=== PATIENT | female | born 1980 ===

== ENCOUNTER 2021-01-31 10:12 | Outpatient (REF) | payer OTHER, SELFPAY | END 2021-01-31 10:13 | disposition home or self-care (01) | LOC: HO.HMGCLDS 10:12 | PROVIDERS: PCP Internal Medicine; Visit Provider Hospitalist | DX: B34.9 Viral infection, unspecified (principal); Z20.822 Contact with and (suspected) exposure to COVID-19 | CPT/HCPCS: U0003; U0005 ==

== ENCOUNTER 2021-02-09 10:41 | Outpatient (REF) | payer OTHER, SELFPAY ==
[2021-02-09 14:03] LABS: Hematocrit 42.4 % (37-47); Hemoglobin 13.6 g/dl (12.0-16.0); Mean Corpuscular HGB Conc 32.1 g/dl (31.0-35.0); Mean Corpuscular Hemoglobin 30.2 pg (27.0-33.0); Mean Corpuscular Volume 94.2 fL (80-98); Mean Platelet Volume 10.4 fL (9.4-12.3); Platelet Count 338 X10*3/uL (160-400); Red Cell Distribution Width 12.6 % (11.0-16.0); White Blood Count 7.3 X10*3/uL (4.8-10.8)
[2021-02-09 14:08] LABS: Glucose Urine UA NEG (NEG); Leukocyte Esterase Urine NEG (NEG); Nitrite Urine NEG (NEG); Urine Blood NEG (NEG); Urine Ketones NEG (NEG); Urine Protein NEG (NEG-TRACE)
[2021-02-09 14:14] LABS: Appearance Urine HAZY; Color Urine YELLOW
[2021-02-09 14:26] LABS: Bacteria Urine 2+ /LPF; RBC Urine 0 /HPF (0); Squamous Epithelial Cell Urine 4+ /LPF; WBC Urine 0 /HPF (0-4)
[2021-02-09 14:28] LABS: Alanine Aminotransferase 31 U/L (0-31); Albumin Level 4.4 g/dL (3.5-5.0); Alkaline Phosphatase 72 U/L (39-117); Anion Gap 13 (12-20); Aspartate Amino Transferase 20 U/L (5-31); Bilirubin Total 0.6 mg/dL (0.0-1.0); Blood Urea Nitrogen 14 mg/dL (9-16); Calcium 9.5 mg/dL (8.4-10.2); Carbon Dioxide 27 mmol/L (22-29); Chloride 103 mmol/L (96-108); Cholesterol 221 mg/dL; Estimated Glomerular Filt Rate > 60; Glucose Fasting 88 mg/dL (60-99); HDL Cholesterol 50 mg/dL; LDL Cholesterol Calculated 156 mg/dl; Potassium 4.7 mmol/L (3.3-5.1); Sodium 138 mmol/L (135-145); Total Protein 7.9 g/dL (6.5-8.0); Triglycerides 77 mg/dL
[2021-02-09 14:38] LABS: TSH reflex Free T4 0.31 uIU/mL (0.32-4.0)
[2021-02-09 15:45] LABS: Free T4 (Free Thyroxine) 0.84 ng/dL (0.71-1.85)
[2021-02-12 03:50] LABS: HBc Num1 0.04 S/CO (0.00-0.79); Hepatitis B Core Antibody Nonreactive (Nonreactive)
[2021-02-12 03:55] LABS: HBS Num1 73.06 mIU/mL (0-7.99); HBsAGNum1 0.46 S/CO (0.00-0.99); Hepatitis B Surface Antigen Negative (Negative); ~Hepatitis B Surface Antibody REACTIVE (Nonreactive)
== END 2021-02-09 10:42 | disposition home or self-care (01) ==
LOC: HO.HMGCLDS 10:41
PROVIDERS: PCP Internal Medicine; Visit Provider Internal Medicine
DX: Z00.00 Encounter for general adult medical examination without abnormal findings (principal)
CPT/HCPCS: 36415; 80053; 80061; 81001; 84439; 84443; 85027; 86704; 86706; 87340

== ENCOUNTER 2021-03-23 11:37 | Outpatient (REF) | payer OTHER, SELFPAY ==
[2021-03-26 15:17] LABS: TS Negative Control Passed; TS Panel A 2; TS Panel B 1; TS Positive Control Passed; TSpotTB Negative (SeeBelow)
== END 2021-03-23 11:38 | disposition home or self-care (01) ==
LOC: HO.HMGCLDS 11:37
PROVIDERS: PCP Internal Medicine; Visit Provider Internal Medicine
DX: Z11.1 Encounter for screening for respiratory tuberculosis (principal)
CPT/HCPCS: 36415; 86481

== ENCOUNTER 2021-04-03 12:27 | Outpatient (REF) | payer OTHER, SELFPAY ==
[2021-04-03 14:46] LABS: Influenza A PCR NEGATIVE (Negative); Influenza B PCR NEGATIVE (Negative); Resp Syncy Virus RNA Qual PCR NEGATIVE (Negative); SARS COV2 PCR INHOUSE NEGATIVE (Negative)
== END 2021-04-03 12:28 | disposition home or self-care (01) ==
LOC: HO.LAB 12:27
PROVIDERS: Visit Provider Nurse Practitioner Family
DX: B34.9 Viral infection, unspecified (principal); Z20.822 Contact with and (suspected) exposure to COVID-19
CPT/HCPCS: 0241U; 36415

== ENCOUNTER 2021-04-20 13:12 | Outpatient (REF) | payer OTHER, SELFPAY ==
--- NOTE | ~2021-04-20 | US_ITS ---
EXAMINATION: US THYROID CLINICAL INFORMATION: Toxic goiter, unspecified. COMPARISON: None TECHNIQUE: Linear transducer grayscale and color Doppler examination with attention to the region of the thyroid. FINDINGS: SIZE: Measurements of the thyroid lobes and nodules are given in sagittal, anteroposterior and transverse dimensions respectively. Right Thyroid Lobe: 5.1 x 1.8 x 1.9 cm, volume 9.1 mL. Parenchyma: The gland echotexture is homogeneous. Thyroid vascularity is normal. Left Thyroid Lobe: 4.7 x 1.1 x 2.1 cm, volume 5.7 mL. Parenchyma: The gland echotexture is homogeneous. Thyroid vascularity is normal. Isthmus: 3 cm in maximum AP dimension. Estimated total number of nodules greater than or equal to 1 cm: 1. 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 Location: Left inferior. Size: 0.8 x 0.4 x 0.7 cm, volume 0.15 mL. Nodule characteristics: Composition: Cystic(0). ACR TI-RADS total points: 0 ACR TI-RADS category: 1 2. Location: Left inferior. Size: 0.5 x 0.3 x 0.4 cm, volume 0.03 mL. Nodule characteristics: Composition: Mixed cystic and solid (1). Echogenicity: Cannot be determined (1). Shape: Not taller than wide (0). Margins: Smooth (0). Echogenic Foci: None (0). ACR TI-RADS total points: 2 ACR TI-RADS category: 2 3. Location: Left inferior. Size: 0.4 x 0.2 x 0.3 cm, volume 0.01 mL. Nodule characteristics: Composition: Cystic(0). ACR TI-RADS total points: 0 ACR TI-RADS category: 1 4. Location: Right inferior. Size: 2.5 x 1.5 x 1.6 cm, volume 4.02 mL. Nodule characteristics: Composition: Mixed cystic and solid (1). Echogenicity: Very hypoechoic (3). Shape: Taller than wide (3). Margins: Smooth (0). Echogenic Foci: Peripheral calcifications (2). ACR TI-RADS total points: 9 ACR TI-RADS category: 5 NODES: No lymphadenopathy is seen in the tissue surrounding the thyroid gland. US/US thyroid IMPRESSION: Bilateral thyroid nodules. Fine needle aspiration of the dominant nodule in the right lobe recommended. ACR TI-RADS RECOMMENDATION REFERENCE: Ultrasound-guided fine-needle aspiration, followup ultrasound, no further follow up. * TR1 (0 point) and TR 2 (2 points): No FNA or follow up * TR3 (3 points): FNA if more than or equal to 2.5 cm in maximum dimension, followup ultrasound in 1, 3 and 5 years if 1.5 to 2.4 cm in maximum dimension. * TR4 (4-6 points): FNA if more than or equal to 1.5 cm in maximum dimension, followup ultrasound in 1, 2, 3 and 5 years if 1 to 1.4 cm in maximum dimension. * TR5 (more than or equal to 7 points): FNA if more than or equal to 1 cm in maximum dimension, followup ultrasound every year for 5 years if 0.5 to 0.9 cm in maximum dimension. * TR3, TR4 or TR5 nodules that are below the size threshold for follow up receive no follow up.
== END 2021-04-20 13:13 | disposition home or self-care (01) ==
LOC: HO.HMGCX 13:12
PROVIDERS: PCP Internal Medicine; Visit Provider Internal Medicine
DX: E04.9 Nontoxic goiter, unspecified (principal)
CPT/HCPCS: 76536

== ENCOUNTER → 2021-10-29 10:41 | Outpatient (BNVA) | payer OTHER, SELFPAY | PROVIDERS: PCP Internal Medicine; Visit Provider Internal Medicine ==

== ENCOUNTER 2021-10-30 06:26 | Outpatient (REF) | payer SELFPAY ==
[2021-10-30 12:33] LABS: Free T4 (Free Thyroxine) 0.78 ng/dL (0.71-1.85); Thyroid Stimulating Hormone 0.96 uIU/mL (0.32-4.0)
[2021-10-31 04:12] LABS: Triiodothyronine T3 Total 76 ng/dL (76-181)
== END 2021-10-30 06:27 | disposition home or self-care (01) ==
LOC: HO.HMGCLDS 06:26
PROVIDERS: PCP Internal Medicine; Visit Provider Internal Medicine
DX: E04.2 Nontoxic multinodular goiter (principal)
CPT/HCPCS: 36415; 84439; 84443; 84480

== ENCOUNTER 2021-12-13 13:24 | Outpatient (REF) | payer SELFPAY ==
[2021-12-13 17:08] LABS: Free T4 (Free Thyroxine) 0.77 ng/dL (0.71-1.85); Thyroid Stimulating Hormone 0.58 uIU/mL (0.32-4.0)
[2021-12-14 08:35] LABS: Triiodothyronine T3 Total 88 ng/dL (76-181)
== END 2021-12-13 13:25 | disposition home or self-care (01) ==
LOC: HO.HMGCLDS 13:24
PROVIDERS: Visit Provider Internal Medicine
DX: E05.90 Thyrotoxicosis, unspecified without thyrotoxic crisis or storm (principal)
CPT/HCPCS: 36415; 84439; 84443; 84480

== ENCOUNTER 2022-05-09 08:10 | Outpatient (REF) | payer OTHER, SELFPAY ==
--- NOTE | 2022-05-09 08:46 | P.BOP_ITS ---
Brief Operative Note Date of Service: 05/09/22 Pre-op diagnosis: Multinodular Thyroid Procedure: Patient presented for FNA biopsy of the thyroid. What was read as a 2.5 cm solitary nodule in the RMP was found to represent 2 separate 1.2 cm thyroid nodules within the RMP. One pass with a 27 guage needle was made, but subsequently it was noted that the Patient's R carotid appeared to contain either an atherematous plaque vs surrounding edema. Biopsy was aborted and an official cortid US was scheduled. FNA biopsy will be completed after US of the carotid is completed. Surgeon: Mirela Saucedo, DO Was an Associate Sales Representative used for this Procedure?: No Estimated blood loss (mL): 0
== END 2022-05-09 08:11 | disposition home or self-care (01) ==
LOC: HO.US 08:10
PROVIDERS: PCP Internal Medicine; Visit Provider Internal Medicine
DX: E04.2 Nontoxic multinodular goiter (principal)
CPT/HCPCS: 10005; 88172; 88173

== ENCOUNTER 2022-05-10 09:59 | Outpatient (REF) | payer OTHER, SELFPAY ==
--- NOTE | ~2022-05-10 | US_ITS ---
EXAMINATION: US EXTRACRANIAL CAROTID DUPLEX, BILATERAL CLINICAL INFORMATION: No indication available at time of dictation. COMPARISON: None TECHNIQUE: Real-time ultrasound and Doppler techniques (integrating B-mode 2-D vascular images, Doppler spectral analysis and color-flow Doppler imaging) were utilized to interrogate the extracranial carotid arteries, the vertebral arteries and proximal subclavian arteries bilaterally. The degree of stenosis is determined by criteria similar to NASCET. FINDINGS: Right Side: 1. There is no atherosclerotic plaque seen in the bifurcation/proximal ICA region. 2. The common carotid artery PSV proximally is 96 cm/s and distally 83 cm/s. 3. The proximal internal carotid artery velocities are 76 cm/s systolic and 23 cm/s diastolic. 4. The proximal external carotid artery PSV is 84 cm/s. 5. The vertebral artery shows antegrade flow. 6. The subclavian artery waveforms are normal. Left Side: 1. There is no atherosclerotic plaque seen in the bifurcation/proximal ICA region. 2. The common carotid artery PSV proximally is 112 cm/s and distally 98 cm/s. 3. The proximal internal carotid artery velocities are 75 cm/s systolic and 33 cm/s diastolic. 4. The proximal external carotid artery PSV is 65 cm/s. 5. The vertebral artery shows antegrade flow. 6. The subclavian artery waveforms are normal. US/US carotid duplex BI IMPRESSION: 1. RIGHT: Normal right internal carotid artery without atherosclerotic plaque or hemodynamically significant stenosis. 2. LEFT: Normal left internal carotid artery without atherosclerotic plaque or hemodynamically significant stenosis.
== END 2022-05-10 10:00 | disposition home or self-care (01) ==
LOC: HO.US 09:59
PROVIDERS: Visit Provider Internal Medicine
DX: E04.2 Nontoxic multinodular goiter (principal)
CPT/HCPCS: 93880

== ENCOUNTER 2022-06-21 12:41 | Outpatient (REF) | payer OTHER, SELFPAY ==
--- NOTE | ~2022-06-21 | US_ITS ---
EXAMINATION: ULTRASOUND-GUIDED FINE-NEEDLE ASPIRATION CLINICAL INFORMATION: Thyroid nodule COMPARISON: Previous fine-needle aspiration April 2022 thyroid ultrasound March 2021 TECHNIQUE: Procedure and risks and benefits including bleeding and infection were discussed with the patient and informed consent was obtained. The right neck was prepped and draped in usual sterile fashion. The skin and soft tissues were anesthetized with lidocaine plain. Using ultrasound guidance and a 25-gauge needle, access to the nodule in the mid right lobe was obtained. 4 25-gauge FNA specimens were obtained. There is no complication. FINDINGS: There is a 1.4 x 1.2 x 1.2 cm nodule in the mid right thyroid gland that was targeted for fine-needle aspiration. US/US guided fine needle asp IMPRESSION: Right thyroid nodule fine-needle aspiration.
[2022-06-21] MEDS: Lidocaine HCl 1 % MPF 5 ML VIAL 2 ML SUBCUT (14:02)
== END 2022-06-21 12:42 | disposition home or self-care (01) ==
LOC: HO.US 12:41
PROVIDERS: Visit Provider Internal Medicine
DX: E04.2 Nontoxic multinodular goiter (principal)
CPT/HCPCS: 10005; 88172; 88173; 88177

== ENCOUNTER 2022-07-26 09:59 | Outpatient (REF) | payer OTHER, SELFPAY ==
[2022-07-26 12:54] LABS: Thyroid Stimulating Hormone 0.34 uIU/mL (0.32-4.0)
[2022-07-29 04:17] LABS: Triiodothyronine T3 Total 95 ng/dL (76-181)
[2022-07-29 14:32] LABS: TS Negative Control Passed; TS Panel A 2; TS Panel B 1; TS Positive Control Passed; TSpotTB Negative (Negative)
== END 2022-07-26 10:00 | disposition home or self-care (01) ==
LOC: HO.HMGCLDS 09:59
PROVIDERS: Absent Provider Internal Medicine; PCP Internal Medicine; Visit Provider Internal Medicine
DX: Z11.1 Encounter for screening for respiratory tuberculosis (principal); E04.2 Nontoxic multinodular goiter; E05.90 Thyrotoxicosis, unspecified without thyrotoxic crisis or storm
CPT/HCPCS: 36415; 84439; 84443; 84480; 86481

== ENCOUNTER 2022-08-23 09:09 | Outpatient (REF) | payer OTHER, SELFPAY ==
[2022-08-23 12:09] LABS: HBS Num1 70.65 mIU/mL (0-7.99); ~Hepatitis B Surface Antibody REACTIVE (Nonreactive)
[2022-08-23 12:14] LABS: Free T4 (Free Thyroxine) 0.92 ng/dL (0.71-1.85); Thyroid Stimulating Hormone 0.49 uIU/mL (0.32-4.0)
[2022-08-25 08:12] LABS: Triiodothyronine T3 Total 108 ng/dL (76-181)
[2022-08-26 21:57] LABS: Rubella IgG Antibody 6.85 Index
== END 2022-08-23 09:10 | disposition home or self-care (01) ==
LOC: HO.HMGCLDS 09:09
PROVIDERS: Absent Provider Internal Medicine; PCP Internal Medicine; Visit Provider Internal Medicine
DX: Z02.0 Encounter for examination for admission to educational institution (principal); E04.2 Nontoxic multinodular goiter; E05.90 Thyrotoxicosis, unspecified without thyrotoxic crisis or storm
CPT/HCPCS: 36415; 84439; 84443; 84480; 86706; 86735; 86762; 86765

== ENCOUNTER 2022-11-08 09:08 | Outpatient (REF) | payer OTHER, SELFPAY ==
[2022-11-08 11:38] LABS: MANUAL DIFF FLAG NO
[2022-11-08 11:57] LABS: Basophils Absolute Auto 0.1 X10*3/uL (0.0-0.2); Eosinophils Absolute Auto 0.2 X10*3/uL (0.0-0.4); Eosinophils Percent Auto 3.9 % (0-4); Hematocrit 41.9 % (37.0-47.0); Hemoglobin 13.3 g/dl (12.0-16.0); Imm Gran Abs Auto 0.01 X10*3/uL (0.00-0.03); Imm Gran Pct Auto 0.2 % (0.0-0.4); Lymphocytes Absolute Auto 1.7 X10*3/uL (1.2-4.9); Lymphocytes Percent Auto 27.1 % (20-40); Mean Corpuscular HGB Conc 31.7 g/dl (31.0-35.0); Mean Corpuscular Hemoglobin 29.8 pg (27.0-33.0); Mean Corpuscular Volume 93.9 fL (80.0-98.0); Mean Platelet Volume 10.1 fL (9.4-12.3); Monocytes Absolute Auto 0.4 X10*3/uL (0.1-1.2); Neutrophils Absolute Auto 3.7 x10*3/uL (2.0-8.3); Neutrophils Percent Auto 60.8 % (45-73); Platelet Count 393 X10*3/uL (160-400); Red Blood Count 4.46 X10*6/uL (4.20-5.50); Red Cell Distribution Width 12.3 % (11.0-16.0); White Blood Count 6.1 X10*3/uL (4.8-10.8)
[2022-11-08 12:10] LABS: Alanine Aminotransferase 16 U/L (0-31); Albumin Level 4.1 g/dL (3.5-5.0); Alkaline Phosphatase 65 U/L (39-117); Anion Gap 9 (12-20); Aspartate Amino Transferase 19 U/L (5-31); Bilirubin Total 0.3 mg/dL (0.0-1.0); Blood Urea Nitrogen 17 mg/dL (9-16); Carbon Dioxide 28 mmol/L (22-29); Chloride 106 mmol/L (96-108); Cholesterol 216 mg/dL; Estimated Glomerular Filt Rate > 60; Glucose Fasting 89 mg/dL (60-99); HDL Cholesterol 48 mg/dL; LDL Cholesterol Calculated 147 mg/dl; Potassium 4.2 mmol/L (3.3-5.1); Sodium 139 mmol/L (135-145); Total Protein 7.4 g/dL (6.5-8.0); Triglycerides 109 mg/dL
== END 2022-11-08 09:09 | disposition home or self-care (01) ==
LOC: HO.HMGCLDS 09:08
PROVIDERS: PCP Internal Medicine; Visit Provider Internal Medicine
DX: Z00.00 Encounter for general adult medical examination without abnormal findings (principal); R42 Dizziness and giddiness
CPT/HCPCS: 36415; 80053; 80061; 85025

== ENCOUNTER 2022-12-18 10:06 | Outpatient (REF) | payer OTHER, SELFPAY ==
[2022-12-18 11:54] LABS: C Reactive Protein < 0.10 mg/dL (< or = 0.50)
[2022-12-18 12:02] LABS: Erythrocyte Sedimentation Rate 12 MM/HR (0-20)
== END 2022-12-18 10:07 | disposition home or self-care (01) ==
LOC: HO.HMGCLDS 10:06
PROVIDERS: PCP Internal Medicine; Visit Provider Internal Medicine
DX: M79.10 Myalgia, unspecified site (principal); R21 Rash and other nonspecific skin eruption
CPT/HCPCS: 36415; 82550; 85652; 86140

== ENCOUNTER 2023-04-24 12:07 | Outpatient (REF) | payer OTHER, SELFPAY | END 2023-04-24 12:08 | disposition home or self-care (01) | LOC: HO.US 12:07 | PROVIDERS: PCP Internal Medicine; Visit Provider Internal Medicine | DX: E04.2 Nontoxic multinodular goiter (principal) | CPT/HCPCS: 76536 ==

== ENCOUNTER 2023-05-06 13:58 | Outpatient (AMB) | payer OTHER, SELFPAY ==
--- NOTE | 2023-05-06 14:09 | MHC.PC.OV ---
Vital Signs 05/06/23 14:21 Height 5 ft 4 in Weight 176 lb BMI 30.2 BP 120/80 Blood Pressure Location Lt brachial Position Sitting Pulse 78 Pulse Source Pulse Oximeter Pulse Oximetry (%) 98 Oxygen Delivery Method Room Air Intake Visit Reasons: ER follow up Intake Note: Pt is here today for ER follow up visit. Allergies No Known Allergies Allergy (Verified 05/06/23 14:23) Medication List - Last Reconciled 05/06/23 by Natasha Jim MD clobetasol 0.05% 1 appl topical BEDTIME hydrocortisone 2.5% 1 appl topical BID meclizine 25 mg PO BID PRN Tobacco use date assessed: 05/06/23 Dental Screening Dental Screen Date: 05/06/23 Did you have a dental visit in the last 12 months?: Yes Did you have a dental problem in the last 6 months where you did not have access to dental care?: No Was dental information given to patient?: Patient has dentist HPI ER follow up HPI Details Pt presents for f/u ER visit for chronic but worsening recently neck pain radiating to R shoulder. Pt had negative XR C spine and XR shoulder. Pt tried PT without relief. Pt took Prednisone 40 mg for 4 days. Pt c/o burning sensation all over her body including her face, mid back, feet and hands. This symptoms on and off and patient feels they are related to COVID infection. Patient reports muscle cramps on and off. She tried muscle relaxant without relief. Patient denies extremity weakness or change in the balance or vision, fever chills. [facility] Medical History Annual physical exam Eczema Enlarged thyroid Foot pain, right Gestational diabetes mellitus Gestational HTN Hyperlipidemia Hyperthyroidism Multinodular thyroid Normal Pap smear Surgical History No history of previous surgery Family History Father Diabetes HTN (hypertension) Mother Ectopic Social History Housing: House Alcohol intake: current Alcohol intake frequency: does not drink Patient Tobacco Use Status: Never used Tobacco e-Cigarette/Vaping Use: Never Used Current occupational status: employed Cognitive needs: No Hearing needs: No Vision needs: No Questionnaire Thrive Questionnaire Date Thrive assessed: 11/06/22 AUDIT C Alcohol Use Questionnaire (AUDIT-C) 1. How often do you have a drink containing alcohol?: Monthly or less 2. How many drinks containing alcohol do you have on a typical day when you are drinking?: 1 or 2 3. How often do you have six or more drinks on one occasion?: Never Total Score: 1 ELDA-7 AMB Questionnaire ELDA-7 Date ELDA - 7 assessed: 11/06/22 Source: Developed by Drs. Kj Hoang, Geraldine Kwan, Rai Chowdhury and colleagues, with an educational venkat from [employer]. Review of Systems Const All systems reviewed & are unremarkable except as noted in HPI and below Reports no additional complaints Eyes Reports no additional complaints ENT Reports no additional complaints Card Reports no additional complaints Resp Reports no additional complaints GI Reports no additional complaints Reports no additional complaints Physical exam (Primary Care) Vital Signs: Last Vital Signs Pulse 78 05/06/23 14:21 BP 120/80 05/06/23 14:21 Pulse Ox 98 05/06/23 14:21 Oxygen Delivery Method Room Air 05/06/23 14:21 BMI result Body Mass Index 30.2 Tobacco/Smoking Status: Tobacco use Status Tobacco use date assessed 05/06/23 05/06/23 14:27 Patient Tobacco Use Status Never used Tobacco 05/06/23 14:09 e-Cigarette/Vaping Use Never Used 05/06/23 14:09 Thrive Assessment: Date of Thrive Assessment Date Thrive assessed 11/06/22 05/06/23 14:09 Const General: no acute distress [facility] Head: Yes normal to inspection Ears: hearing grossly normal bilaterally General nose exam: Normal external nose present Face and sinus: Yes normal facial exam Mouth: Normal oral and palatal mucosa present Throat: Yes posterior oropharynx normal Eyes General: appearance normal, both eyes and all related structures Neck Neck: Yes no lymphadenopathy and Yes supple Resp Effort & Inspection: normal respiratory effort Auscultation: clear to auscultation bilaterally Cardio Rhythm: regular rhythm Heart sounds: S1 normal heart sound present and S2 normal heart sound present GI Inspection: Yes normal to inspection Palpation (GI): Soft to palpation Percussion: Yes normal to percussion Auscultation: normal bowel sounds Back/Spine/Pelvis Other: Paraspinal tenderness and muscle tension in lower cervical region, both shoulders with full range of motion, deep tendon reflexes 1+ bilaterally, motor strength 5/5 upper and lower extremities Thoracic/Lumbar Spine: thoracic and lumbar spine normal to inspection Neuro Cranial nerves: Yes CN's II-XII intact bilaterally Cognition (Neuro): normal cognition Gait exam (Neuro): Normal gait present Motor exam (neuro): 5/5 motor strength present throughout Coordination: [id number] test normal Extrem General: Yes no clubbing, cyanosis or edema Assessment and Plan Assessment & Plan (1) Cervical radicular pain: Code(s): M54.12 - Radiculopathy, cervical region Plan: For persistent cervical radiculopathy without improvement with physical therapy C-spine MRI will be obtained to evaluate (2) Myalgia: Code(s): M79.10 - Myalgia, unspecified site Plan: Check blood work (3) Neuropathy: Code(s): G62.9 - Polyneuropathy, unspecified Plan: Obtain labs including vitamin B12 level and CRP. Start gabapentin 300 mg q.h.s. then increase to twice a day as needed. Patient will be referred to Neurology Orders: Orders Comprehensive Met. Panel Today G62.9 - Polyneuropathy, unspecified, M54.12 - Radiculopathy, cervical region, M79.10 - Myalgia, unspecified site Magnesium Today G62.9 - Polyneuropathy, unspecified, M54.12 - Radiculopathy, cervical region, M79.10 - Myalgia, unspecified site TSH reflex Free T4 Today G62.9 - Polyneuropathy, unspecified, M54.12 - Radiculopathy, cervical region, M79.10 - Myalgia, unspecified site Complete Blood Count Auto Diff Today G62.9 - Polyneuropathy, unspecified, M54.12 - Radiculopathy, cervical region, M79.10 - Myalgia, unspecified site ANDERS Reflex Titer and Pattern Today G62.9 - Polyneuropathy, unspecified, M54.12 - Radiculopathy, cervical region, M79.10 - Myalgia, unspecified site MR cervical spine wo con Today G62.9 - Polyneuropathy, unspecified, M54.12 - Radiculopathy, cervical region, M79.10 - Myalgia, unspecified site Vitamin B12 and Folate Today G62.9 - Polyneuropathy, unspecified Referrals Neurology Referral G62.9 - Polyneuropathy, unspecified Medications: New gabapentin 300 mg PO BID 60 caps 1RF Coding Level of Care Code Est Pt Level 4 (59737) Diagnoses Cervical radicular pain M54.12 Myalgia M79.10 Neuropathy G62.9
[2023-05-06 14:21] VITALS: BP 120/80; PULSE 78; O2SAT 98; BMI 30.2
== END 2023-05-06 15:16 | disposition home or self-care (01) ==
PROVIDERS: PCP Internal Medicine; Visit Provider Internal Medicine
DX: M54.12 Radiculopathy, cervical region (principal); M79.10 Myalgia, unspecified site; G62.9 Polyneuropathy, unspecified
CPT/HCPCS: 99214

== ENCOUNTER 2023-05-06 15:03 | Outpatient (REF) | payer OTHER, SELFPAY ==
[2023-05-06 16:15] LABS: MANUAL DIFF FLAG NO
[2023-05-06 16:27] LABS: Basophils Absolute Auto 0.1 X10*3/uL (0.0-0.2); Basophils Percent Auto 0.6 % (0-2); Eosinophils Absolute Auto 0.3 X10*3/uL (0.0-0.4); Eosinophils Percent Auto 3.2 % (0-4); Hematocrit 39.1 % (37.0-47.0); Hemoglobin 12.7 g/dl (12.0-16.0); Imm Gran Abs Auto 0.03 X10*3/uL (0.00-0.03); Imm Gran Pct Auto 0.3 % (0.0-0.4); Lymphocytes Absolute Auto 2.3 X10*3/uL (1.2-4.9); Lymphocytes Percent Auto 22.7 % (20-40); Mean Corpuscular HGB Conc 32.5 g/dl (31.0-35.0); Mean Corpuscular Hemoglobin 30.1 pg (27.0-33.0); Mean Corpuscular Volume 92.7 fL (80.0-98.0); Monocytes Absolute Auto 0.9 X10*3/uL (0.1-1.2); Monocytes Percent Auto 9.2 % (2-11); Neutrophils Absolute Auto 6.4 x10*3/uL (2.0-8.3); Platelet Count 347 X10*3/uL (160-400); Red Blood Count 4.22 X10*6/uL (4.20-5.50); Red Cell Distribution Width 12.8 % (11.0-16.0); White Blood Count 9.9 X10*3/uL (4.8-10.8)
[2023-05-06 18:00] LABS: Alanine Aminotransferase 21 U/L (0-31); Albumin Level 4.2 g/dL (3.5-5.0); Alkaline Phosphatase 62 U/L (39-117); Anion Gap 13 (12-20); Aspartate Amino Transferase 15 U/L (5-31); Bilirubin Total 0.4 mg/dL (0.0-1.0); Blood Urea Nitrogen 12 mg/dL (9-16); Calcium 9.9 mg/dL (8.4-10.2); Carbon Dioxide 24 mmol/L (22-29); Chloride 105 mmol/L (96-108); Estimated Glomerular Filt Rate > 60; Glucose Random 74 mg/dL (60-115); Potassium 3.6 mmol/L (3.3-5.1); Sodium 138 mmol/L (135-145); Total Protein 7.6 g/dL (6.5-8.0)
[2023-05-11 14:32] LABS: Anti Nuclear Antibody Screen NEGATIVE (NEGATIVE)
== END 2023-05-06 15:04 | disposition home or self-care (01) ==
LOC: HO.HMGCLDS 15:03
PROVIDERS: PCP Internal Medicine; Visit Provider Internal Medicine
DX: M54.12 Radiculopathy, cervical region (principal); M79.10 Myalgia, unspecified site; G62.9 Polyneuropathy, unspecified
CPT/HCPCS: 36415; 80053; 83735; 84443; 85025; 86038

== ENCOUNTER 2023-06-25 12:46 | Outpatient (REF) | payer OTHER, SELFPAY ==
[2023-06-25 18:23] LABS: Folate 15.5 ng/mL (> or = 4.0); Vitamin B12 838 pg/mL (200-900)
[2023-06-27 23:09] LABS: TS Negative Control Passed; TS Panel A 0; TS Panel B 2; TS Positive Control Passed; TSpotTB Negative (Negative)
== END 2023-06-25 12:47 | disposition home or self-care (01) ==
LOC: HO.HMGCLDS 12:46
PROVIDERS: PCP Internal Medicine; Visit Provider Internal Medicine
DX: G62.9 Polyneuropathy, unspecified (principal); Z11.1 Encounter for screening for respiratory tuberculosis
CPT/HCPCS: 36415; 82607; 82746; 86481

== ENCOUNTER 2023-09-04 09:27 | Outpatient (REF) | payer OTHER, SELFPAY ==
--- NOTE | ~2023-09-04 | MR_ITS ---
EXAMINATION: MR CERVICAL SPINE WITHOUT CONTRAST CLINICAL INFORMATION: Radiculopathy, cervical region. COMPARISON: None available. TECHNIQUE: MRI of the cervical spine was obtained using routine sequences without contrast. FINDINGS: The visualized posterior fossa is unremarkable. Slight reversal of the normal cervical lordosis. Trace retrolisthesis at C4-5, C5-C6, and C6-7. No abnormal bone marrow signal. The vertebral body heights are preserved. Multilevel disc desiccation without significant disc height loss. The spinal cord is normal in caliber. No abnormal cord signal. C2-3: Disc osteophyte complex and right greater than left facet arthrosis. No significant spinal canal or neural foraminal narrowing. C3-4: Disc osteophyte complex partially effacing the ventral thecal sac. No significant spinal canal or neural foraminal narrowing. C4-5: No significant spinal canal or neural foraminal narrowing. C5-6: Right paracentral disc osteophyte complex and bilateral uncovertebral hypertrophy. Mild to moderate right eccentric spinal canal stenosis with mass effect on the cord. Mild bilateral neural foraminal narrowing. C6-7: Disc osteophyte complex. No significant spinal canal or neural foraminal narrowing. C7-T1: No significant spinal canal or neural foraminal narrowing. The paravertebral soft tissues are unremarkable. Partially imaged T2 hyperintense nodules in bilateral thyroid lobes. The visualized lung apices are clear. MR/MR cervical spine wo con IMPRESSION: -Multilevel cervical spondylosis as described above, worst at C5-C6 where there is mild to moderate right eccentric spinal canal stenosis and mild bilateral neural foraminal narrowing. -Partially imaged bilateral thyroid lobe nodules, better evaluated with dedicated thyroid ultrasound.
== END 2023-09-04 09:28 | disposition home or self-care (01) ==
LOC: HO.MRI 09:27
PROVIDERS: PCP Internal Medicine; Visit Provider Internal Medicine
DX: M54.12 Radiculopathy, cervical region (principal); M79.10 Myalgia, unspecified site; G62.9 Polyneuropathy, unspecified
CPT/HCPCS: 72141

== ENCOUNTER 2023-11-18 12:43 | Outpatient (AMB) | payer OTHER, SELFPAY ==
[2023-11-18 13:04] VITALS: BP 120/74; PULSE 89; O2SAT 99; BMI 29.9
--- NOTE | 2023-11-18 13:04 | A.OFFPC_ITS ---
Vital Signs 11/18/23 13:04 Height 5 ft 4 in Weight 174 lb BMI 29.9 BP 120/74 Blood Pressure Location Lt brachial Position Sitting Pulse 89 Pulse Source Pulse Oximeter Pulse Oximetry (%) 99 Oxygen Delivery Method Room Air Intake Visit Reasons: Annual PE Intake Note: Pt is here today for PE. 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 Allergies No Known Allergies Allergy (Verified 11/18/23 13:05) Medication List - Last Reconciled 11/18/23 by Natasha Jim MD clobetasol 0.05% 1 appl topical BEDTIME gabapentin 300 mg PO BID meclizine 25 mg PO BID PRN sertraline 50 mg PO DAILY Tobacco use date assessed: 11/18/23 Dental Screening Dental Screen Date: 11/18/23 Did you have a dental visit in the last 12 months?: Yes Did you have a dental problem in the last 6 months where you did not have access to dental care?: No Was dental information given to patient?: Patient has dentist HPI Annual PE HPI Details Pt presents for PE. 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 Patient complains of insomnia but denies depression or suicidal ideation [facility] Medical History Multinodular thyroid Hyperthyroidism Enlarged thyroid Foot pain, right Normal Pap smear Gestational diabetes mellitus Eczema Hyperlipidemia Gestational HTN Annual physical exam Surgical History No history of previous surgery Family History Father Diabetes HTN (hypertension) Mother Ectopic Social History Housing: House Alcohol intake: current Alcohol intake frequency: does not drink Patient Tobacco Use Status: Never used Tobacco e-Cigarette/Vaping Use: Never Used Current occupational status: employed Cognitive needs: No Hearing needs: No Vision needs: No Questionnaire PHQ-9 Over the last 2 weeks, how often have you been bothered by any of the following problems? 1. Little interest or pleasure in doing things: not at all 2. Feeling down, depressed, or hopeless: not at all 3. Trouble falling or staying asleep, or sleeping too much: not at all 4. Feeling tired or having little energy: not at all 5. Poor appetite or overeating: not at all 6. Feeling bad about yourself - or that you are a failure or have let yourself or your family down: not at all 7. Trouble concentrating on things, such as reading the newspaper or watching television: not at all 8. Moving or speaking so slowly that other people could have noticed. Or the opposite - being so fidgety or restless that you have been moving around a lot more than usual: not at all 9. Thoughts that you would be better off or of hurting yourself in some way: not at all Total score: 0 Depression Screening Interpretation: Negative Depression Screening Done: Yes Source: Developed by Drs. Kj Hoang, Geraldine Kwan, Rai Chowdhury and colleagues, with an educational venkat from [employer]. Thrive Questionnaire Date Thrive assessed: 11/18/23 I am a: Patient What is your living situation today?: I have a steady place to live Within the past 12 months, did the food you bought not last and you didn't have the money to get more?: Never true Within the past 12 months, did you worry whether your food would run out before you got money to buy more?: Never true Do you have trouble paying for medicines?: No Do you have trouble getting transportation to medical appointments?: No Do you have trouble paying your heating and electricity bill?: No Do you have trouble taking care of your child, family member or friend?: No Do you have trouble with day-to-day activities such as bathing, preparing meals, shopping, managing finances, etc.?: No Are you currently unemployed and looking for a job?: No Are you interested in more education?: No Please select the resources that you would like help with: None Currently or been in a relationship where the following occur: no concerns reported THRIVE Score: 0 AUDIT C Alcohol Use Questionnaire (AUDIT-C) 1. How often do you have a drink containing alcohol?: Never 3. How often do you have six or more drinks on one occasion?: Never Total Score: 0 ELDA-7 AMB Questionnaire ELDA-7 Date ELDA - 7 assessed: 11/18/23 Feeling nervous, anxious, or on edge: 0 = Not at all Not being able to stop or control worryin = Not at all Worrying too much about different things: 0 = Not at all Trouble relaxin = Not at all Being so restless that it is hard to sit still: 0 = Not at all Becoming easily annoyed or irritable: 0 = Not at all Feeling afraid as if something awful might happen: 0 = Not at all Total ELDA-7 score (0-4 normal; 5-9 mild; 10-14 moderate; 15-21 severe): 0 Source: Developed by Drs. Kj Hoang, Geraldine Kwan, Rai Chowdhury and colleagues, with an educational venkat from [employer]. Review of Systems Const All systems reviewed & are unremarkable except as noted in HPI and below Reports no additional complaints Eyes Reports no additional complaints ENT Reports no additional complaints Card Reports no additional complaints Resp Reports no additional complaints GI Reports no additional complaints Reports no additional complaints Physical exam (Primary Care) Vital Signs: Last Vital Signs Pulse 89 11/18/23 13:04 BP 120/74 11/18/23 13:04 Pulse Ox 99 11/18/23 13:04 Oxygen Delivery Method Room Air 11/18/23 13:04 BMI result Body Mass Index 29.9 Tobacco/Smoking Status: Tobacco use Status Tobacco use date assessed 11/18/23 11/18/23 13:10 Patient Tobacco Use Status Never used Tobacco 11/18/23 13:10 e-Cigarette/Vaping Use Never Used 11/18/23 13:10 PHQ-9: PHQ-9 Score PHQ-9: Total score 0 11/18/23 13:12 Depression Screening Interpretation: Negative Thrive Assessment: Date of Thrive Assessment Date Thrive assessed 11/18/23 11/18/23 13:12 Currently or been in a relationship where the following occur: no concerns reported Const General: no acute distress HENMT Head: Yes normal to inspection Ears: hearing grossly normal bilaterally Face and sinus: Yes normal facial exam Mouth: Normal oral and palatal mucosa present Eyes General: appearance normal, both eyes and all related structures Neck Neck: Yes supple Resp Effort & Inspection: normal respiratory effort Auscultation: clear to auscultation bilaterally Cardio Rhythm: regular rhythm Heart sounds: S1 normal heart sound present and S2 normal heart sound present GI Inspection: Yes normal to inspection Palpation (GI): Soft to palpation Percussion: Yes normal to percussion Auscultation: normal bowel sounds Assessment and Plan Assessment & Plan (1) Annual physical exam: Code(s): Z00.00 - Encounter for general adult medical examination without abnormal findings Plan: Well-balanced diet regular physical activity weight loss discussed with the patient. 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 Follow-up in 2 months Orders: Orders Complete Blood Count Auto Diff Today F41.9 - Anxiety disorder, unspecified, Z00.00 - Encounter for general adult medical examination without abnormal findings Lipid Panel Today F41.9 - Anxiety disorder, unspecified, Z00.00 - Encounter for general adult medical examination without abnormal findings Comprehensive [place]. Panel Fast Today F41.9 - Anxiety disorder, unspecified, Z00.00 - Encounter for general adult medical examination without abnormal findings ANDERS Reflex Titer and Pattern Today F41.9 - Anxiety disorder, unspecified, Z00.00 - Encounter for general adult medical examination without abnormal findings TSH reflex Free T4 Today F41.9 - Anxiety disorder, unspecified, Z00.00 - E ncounter for general adult medical examination without abnormal findings UA w Microscopic Today F41.9 - Anxiety disorder, unspecified, Z00.00 - Encounter for general adult medical examination without abnormal findings Medications: New sertraline 1/2 tabl qd x 1 week, than 1 tabl qd 50 mg PO DAILY 90 tabs 0RF Coding Level of Care Code Est Pt Prev Care 40-64y(38112) Diagnoses Annual physical exam Z00.00 Anxiety F41.9
== END 2023-11-18 14:08 | disposition home or self-care (01) ==
PROVIDERS: PCP Internal Medicine; Visit Provider Internal Medicine
DX: Z00.00 Encounter for general adult medical examination without abnormal findings (principal); F41.9 Anxiety disorder, unspecified
CPT/HCPCS: 99396

== ENCOUNTER 2023-12-04 09:14 | Outpatient (REF) | payer OTHER, SELFPAY ==
[2023-12-04 11:43] LABS: MANUAL DIFF FLAG NO
[2023-12-04 11:46] LABS: Appearance Urine Clear; Color Urine Yellow; Glucose Urine UA Negative (Negative); Leukocyte Esterase Urine Small (1+) (Negative); Nitrite Urine Negative (Negative); Specific Gravity - Urine 1.015 (1.005-1.025); UMIC TRIGGER UA YES; Urine Blood Small (1+) (Negative); Urine Ketones Negative (Negative); Urine Protein Negative (Neg-Trace)
[2023-12-04 12:01] LABS: Basophils Percent Auto 0.6 % (0-2); Eosinophils Absolute Auto 0.2 X10*3/uL (0.0-0.4); Eosinophils Percent Auto 2.4 % (0-4); Hematocrit 39.8 % (37.0-47.0); Hemoglobin 12.9 g/dl (12.0-16.0); Imm Gran Abs Auto 0.02 X10*3/uL (0.00-0.03); Imm Gran Pct Auto 0.3 % (0.0-0.4); Lymphocytes Absolute Auto 1.4 X10*3/uL (1.2-4.9); Lymphocytes Percent Auto 19.4 % (20-40); Mean Corpuscular HGB Conc 32.4 g/dl (31.0-35.0); Mean Corpuscular Hemoglobin 30.4 pg (27.0-33.0); Mean Corpuscular Volume 93.6 fL (80.0-98.0); Mean Platelet Volume 10.3 fL (9.4-12.3); Monocytes Absolute Auto 0.4 X10*3/uL (0.1-1.2); Monocytes Percent Auto 6.1 % (2-11); Neutrophils Percent Auto 71.2 % (45-73); Platelet Count 372 X10*3/uL (160-400); Red Blood Count 4.25 X10*6/uL (4.20-5.50); Red Cell Distribution Width 12.5 % (11.0-16.0)
[2023-12-04 12:06] LABS: Bacteria Urine Trace (None Seen); Hyaline Casts Urine 0-2 /LPF (0-2); WBC Urine 0-5 /HPF (0-5)
[2023-12-04 12:24] LABS: Alanine Aminotransferase 11 U/L (0-31); Albumin Level 4.1 g/dL (3.5-5.0); Alkaline Phosphatase 63 U/L (39-117); Anion Gap 12 (12-20); Aspartate Amino Transferase 16 U/L (5-31); Bilirubin Total 0.5 mg/dL (0.0-1.0); Blood Urea Nitrogen 10 mg/dL (9-16); Calcium 9.2 mg/dL (8.4-10.2); Carbon Dioxide 25 mmol/L (22-29); Chloride 104 mmol/L (96-108); Cholesterol 211 mg/dL (<200); Estimated Glomerular Filt Rate > 60; Glucose Fasting 87 mg/dL (60-99); HDL Cholesterol 51 mg/dL (>40); LDL Cholesterol Calculated 143 mg/dL (<100); Potassium 3.8 mmol/L (3.3-5.1); Sodium 137 mmol/L (135-145); Total Protein 7.8 g/dL (6.5-8.0); Triglycerides 85 mg/dL (<150)
[2023-12-04 12:42] LABS: TSH reflex Free T4 0.48 uIU/mL (0.32-4.0)
[2023-12-10 15:42] LABS: Anti Nuclear Antibody Screen POSITIVE (NEGATIVE)
== END 2023-12-04 09:15 | disposition home or self-care (01) ==
LOC: HO.HMGCLDS 09:14
PROVIDERS: PCP Internal Medicine; Visit Provider Internal Medicine
DX: Z00.00 Encounter for general adult medical examination without abnormal findings (principal); F41.9 Anxiety disorder, unspecified
CPT/HCPCS: 36415; 80053; 80061; 81001; 84443; 85025; 86038; 86039

== ENCOUNTER 2024-01-09 13:42 | Outpatient (AMB) | payer OTHER, SELFPAY ==
--- NOTE | 2024-01-09 14:03 | A.OFFPC_ITS ---
Vital Signs 01/09/24 14:04 Height 5 ft 4 in Weight 173 lb BMI 29.7 BP 118/80 Blood Pressure Location Lt brachial Position Sitting Pulse 80 Pulse Source Pulse Oximeter Pulse Oximetry (%) 98 Oxygen Delivery Method Room Air Intake Visit Reasons: 2 month follow up Intake Note: Pt is here today for 2 months follow up visit. Allergies No Known Allergies Allergy (Verified 01/09/24 14:12) Medication List - Last Reconciled 01/09/24 by Natasha Jim MD clobetasol 0.05% 1 appl topical BEDTIME meclizine 25 mg PO BID PRN sertraline 50 mg PO DAILY Tobacco use date assessed: 01/09/24 HPI 2 month follow up HPI Details Pt presents complaining of persistent bilateral upper and lower extremities numbness and tingling sensation for a few months. Patient was evaluated by neurosurgeon for cervical spinal stenosis and surgery was not recommended. Physical therapy was advisable but patient declined. She denies any weakness when using her upper or lower extremities, change in balance, double vision or headaches, Fever chills night sweats change in her appetite. She had negative evaluation by a collection systems worker. Patient started taking sertraline and feels calmer. She denies depression anxiety or insomnia. Patient tried gabapentin without significant relief of her symptoms. [facility] Medical History Multinodular thyroid Hyperthyroidism Enlarged thyroid Foot pain, right Normal Pap smear Gestational diabetes mellitus Eczema Hyperlipidemia Gestational HTN Annual physical exam Surgical History No history of previous surgery Family History Father Diabetes HTN (hypertension) Mother Ectopic Social History Housing: House Alcohol intake: current Alcohol intake frequency: does not drink Patient Tobacco Use Status: Never used Tobacco e-Cigarette/Vaping Use: Never Used Current occupational status: employed Cognitive needs: No Hearing needs: No Vision needs: No Questionnaire Thrive Questionnaire Date Thrive assessed: 11/18/23 ELDA-7 AMB Questionnaire ELDA-7 Date ELDA - 7 assessed: 11/18/23 Source: Developed by Drs. Kj L. NatalyaGeraldine segura, Rai Chowdhury and colleagues, with an educational venkat from [employer]. Review of Systems Const All systems reviewed & are unremarkable except as noted in HPI and below Reports no additional complaints Eyes Reports no additional complaints ENT Reports no additional complaints Card Reports no additional complaints Resp Reports no additional complaints GI Reports no additional complaints Reports no additional complaints Physical exam (Primary Care) Vital Signs: Last Vital Signs Pulse 80 01/09/24 14:04 BP 118/80 01/09/24 14:04 Pulse Ox 98 01/09/24 14:04 Oxygen Delivery Method Room Air 01/09/24 14:04 BMI result Body Mass Index 29.7 Tobacco/Smoking Status: Tobacco use Status Tobacco use date assessed 01/09/24 01/09/24 14:14 Patient Tobacco Use Status Never used Tobacco 01/09/24 14:14 e-Cigarette/Vaping Use Never Used 01/09/24 14:04 Thrive Assessment: Date of Thrive Assessment Date Thrive assessed 11/18/23 01/09/24 14:04 Const General: no acute distress HENMT Head: Yes normal to inspection Face and sinus: Yes normal facial exam Mouth: Normal oral and palatal mucosa present Eyes General: appearance normal, both eyes and all related structures Neck Neck: Yes no lymphadenopathy and Yes supple Resp Effort & Inspection: normal respiratory effort Auscultation: clear to auscultation bilaterally Cardio Rhythm: regular rhythm Heart sounds: S1 normal heart sound present and S2 normal heart sound present GI Inspection: Yes normal to inspection Palpation (GI): Soft to palpation Percussion: Yes normal to percussion Auscultation: normal bowel sounds Back/Spine/Pelvis Other: Paraspinal tenderness and muscle spasm in lower cervical region, deep tendon reflexes 1+ upper and lower extremities, motor strength 4/5 left lower extremity 5/5 upper and right lower extremity. Skin General skin exam: no rashes or lesions noted Neuro Cranial nerves: Yes CN's II-XII intact bilaterally Coordination: [id number] test normal Romberg Test: Negative Assessment and Plan Assessment & Plan (1) Positive ANDERS (antinuclear antibody): Code(s): R76.8 - Other specified abnormal immunological findings in serum Plan: For weakly positive ANDERS patient requested referral to Rheumatology (2) Numbness in feet: Code(s): R20.0 - Anesthesia of skin Plan: Obtain EMG to evaluate for neuropathy and patient will be referred to neurologist (3) Anxiety: Code(s): F41.9 - Anxiety disorder, unspecified Plan: Continue sertraline Orders: Orders NE electromyogram (EMG) Today R20.0 - Anesthesia of skin Referrals Neurology Referral R20.0 - Anesthesia of skin Rheumatology Referral R76.8 - Other specified abnormal immunological findings in serum Medications: Changed From sertraline 1/2 tabl qd x 1 week, than 1 tabl qd 50 mg PO DAILY 90 tabs 0RF To sertraline 1 tabl qd 50 mg PO DAILY 90 tabs 2RF Discontinued gabapentin Discontinued Reason: Doctor's Order 300 mg PO BID 60 caps 1RF Coding Level of Care Code Est Pt Level 4 (36877) Diagnoses Positive ANDERS (antinuclear antibody) R76.8 Numbness in feet R20.0 Anxiety F41.9
[2024-01-09 14:04] VITALS: BP 118/80; PULSE 80; O2SAT 98; BMI 29.7
== END 2024-01-09 15:14 | disposition home or self-care (01) ==
PROVIDERS: PCP Internal Medicine; Visit Provider Internal Medicine
DX: R76.8 Other specified abnormal immunological findings in serum (principal); R20.0 Anesthesia of skin; F41.9 Anxiety disorder, unspecified
CPT/HCPCS: 99214

== ENCOUNTER 2024-01-14 08:35 | Outpatient (AMB) | payer OTHER, SELFPAY ==
--- NOTE | 2024-01-14 08:33 | A.OFFVIS_ITS ---
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 Patient states that she has been having tingling and numbness of her feet for 3-4 years, she states that she was evaluated by a biodiesel division manager and nothing was found. She states that over the last year this tingling, numbness and diffuse pain has progressed to involve her entire body including her arms, breasts, legs, thighs, back. She states that she gets intermittent rashes on her thighs, elbows and chest, they happen every few months, she can not identify any triggers including sun exposure. It has not itchy. She does apply lotion on them and they self-resolved. Today she has a small rash on her right elbow. She denies any fevers, weight loss, denies any hair loss. Denies oral ulcers. Denies any blood or froth in urine. Denies swollen joints. Denies any history of DVT/PE. She had 5 pregnancies, 3 children, 1 and 1 miscarriage. She states that she has an aunt back in [place] who passed from lupus in her 50s. 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 Currently she is going to nursing school so she cut her working hours anywhere from 8-24 hours a week. She was referred to do an EMG/NCV by her PCP. [facility] Medical History Preeclampsia Multinodular thyroid Hyperthyroidism Enlarged thyroid Foot pain, right Normal Pap smear Gestational diabetes mellitus Eczema Hyperlipidemia Gestational HTN Annual physical exam Surgical History No history of previous surgery Family History Father Diabetes HTN (hypertension) Mother Ectopic Paternal Aunt Lupus Social History Housing: House Alcohol intake: never Patient Tobacco Use Status: Never used Tobacco e-Cigarette/Vaping Use: Never Used Current occupational status: employed Cognitive needs: No Hearing needs: No Vision needs: No Female Reproductive History Menstrual Total pregnancies: 5 Full term: 3 Ab induced: 1 Ab spontaneous: 1 Review of Systems Eyes Reports eye pain Card Reports chest pain Resp Denies cough Musc Reports myalgias, Denies arthralgias, Reports numbness and Reports tingling Skin/Breast Reports rash Neuro Reports numbness and Reports tingling Physical Exam Vital Signs: Last Vital Signs Temp 97 F 01/14/24 08:52 Pulse 86 01/14/24 08:52 BP 114/72 01/14/24 08:52 Pulse Ox 99 01/14/24 08:52 Oxygen Delivery Method Room Air 01/14/24 08:52 BMI result Body Mass Index 29.7 Const General: cooperative, healthy appearing and comfortable Nutritional Appearance: overweight Orientation/consciousness: patient oriented x3 Limitations: no limitations HEENT Head: Yes normocephalic and Yes atraumatic Mouth: moist mucous membranes Resp Effort & Inspection: normal respiratory effort and able to speak in complete sentences Auscultation: clear to auscultation bilaterally Cardio Rate: regular rate Rhythm: regular rhythm GI Inspection: No distended Palpation (GI): Soft to palpation and nontender Skin Other: Neuro General: patient oriented x3 Extrem Other: No classic fibromyalgia tender points No active synovitis Normal nailfold capillaroscopy Assessment & Plan Assessment & Plan (1) Positive ANDERS (antinuclear antibody): Code(s): R76.8 - Other specified abnormal immunological findings in serum Plan: This is a 43-year-old female who presents for evaluation of a positive ANDERS in the context of diffuse pain and tingling/numbness. She states that has an aunt who from SLE. Will order comprehensive serology to screen for underlying autoimmune rheumatic disease. Follow-up in about 6 weeks (2) Numbness in feet: Code(s): R20.0 - Anesthesia of skin Plan: EMG/NCV ordered by PCP and referred to neurologist Plan I spent 45 minutes reviewing patient's chart, evaluating patient, ordering diagnostic workup, counseling patient and documenting in the chart Orders: Orders 2 Anti Extractable Nuclear Ag Today M32.9 - Systemic lupus erythematosus, unspecified Complement C3 Today M32.9 - Systemic lupus erythematosus, unspecified DNA Double Stranded-Crithidia Today M32.9 - Systemic lupus erythematosus, unspecified Protein Creatinine Ratio, Ur Today M32.9 - Systemic lupus erythematosus, unspecified Sjogren's Antibodies Today M32.9 - Systemic lupus erythematosus, unspecified Anti DNA DS Antibody Today M32.9 - Systemic lupus erythematosus, unspecified Complement C4 Today M32.9 - Systemic lupus erythematosus, unspecified UA w Microscopic Today M32.9 - Systemic lupus erythematosus, unspecified Coding Level of Care Code New Pt Level 4 (25282) Diagnoses Positive ANDERS (antinuclear antibody) R76.8 Numbness in feet R20.0
[2024-01-14 08:52] VITALS: BP 114/72; PULSE 86; TEMP 36.1; O2SAT 99; BMI 29.7
== END 2024-01-14 09:26 | disposition home or self-care (01) ==
PROVIDERS: PCP Internal Medicine; Visit Provider Student in an Organized Health Care Education/Training Program
DX: R76.8 Other specified abnormal immunological findings in serum (principal); R20.0 Anesthesia of skin
CPT/HCPCS: 99204

== ENCOUNTER → 2024-01-14 08:35 | Outpatient (BNVA) | payer OTHER, SELFPAY | PROVIDERS: PCP Internal Medicine; Visit Provider Student in an Organized Health Care Education/Training Program | DX: R76.8 Other specified abnormal immunological findings in serum (principal); R20.0 Anesthesia of skin | CPT/HCPCS: 99202 ==

== ENCOUNTER 2024-01-14 09:30 | Outpatient (REF) | payer OTHER, SELFPAY ==
[2024-01-14 10:58] LABS: Appearance Urine Clear; Color Urine Yellow; Glucose Urine UA Negative (Negative); Leukocyte Esterase Urine Negative (Negative); Nitrite Urine Negative (Negative); PH 8.5 (5.0-9.0); UMIC TRIGGER UA YES; Urine Blood Trace (Negative); Urine Ketones Negative (Negative); Urine Protein Negative (Neg-Trace)
[2024-01-14 11:03] LABS: Bacteria Urine None Seen (None Seen); Hyaline Casts Urine 0-2 /LPF (0-2); WBC Urine 0-5 /HPF (0-5)
[2024-01-14 11:55] LABS: Creatinine Urine 69.96 mg/dL; Total Protein Urine Random < 7 mg/dL (<12)
[2024-01-16 16:08] LABS: Complement C3 112 mg/dL (83-193)
[2024-01-16 20:33] LABS: Anti DNA DS Antibody <1 IU/mL; Antibody to SS-A Antigen <1.0 NEG AI (<1.0 NEG); Antibody to SS-B Antigen <1.0 NEG AI (<1.0 NEG); SM/Ribonucleoprotein Ab <1.0 NEG AI (<1.0 NEG); Smith Protein <1.0 NEG AI (<1.0 NEG)
[2024-01-20 16:13] LABS: DNAds, Crithidia Antibody Negative (Negative)
== END 2024-01-14 09:31 | disposition home or self-care (01) ==
LOC: HO.10HDL 09:30
PROVIDERS: Visit Provider Student in an Organized Health Care Education/Training Program
DX: M32.9 Systemic lupus erythematosus, unspecified (principal)
CPT/HCPCS: 36415; 81001; 82570; 84156; 86160; 86225; 86235; 86255

== ENCOUNTER 2024-01-23 10:33 | Outpatient (REF) | payer OTHER, SELFPAY ==
--- NOTE | 2024-01-23 10:36 | EMG_ITS ---
Chief complaint: At least 3 years of numbness on both feet. Reason for referral: Evaluate for neuropathy Referred by: Dr. Jim Procedure done: Bilateral lower extremity NCS/EMG Precautions and/or limitations: None The limb temperature was monitored continuously and remained between 32-36 degrees C during the performance of the NCS. Nerve Conduction Studies Anti Sensory Summary Table ?Stim Site NR Onset (ms) Norm Onset (ms) Peak (ms) Norm Peak (ms) O-P Amp (?V) Norm O-P Amp Site1 Site2 Delta-0 (ms) Dist (cm) Nimesh (m/s) Norm Nimesh (m/s) Left Sural Anti Sensory (Lat Mall) Calf ? 2.1 2.7 <4.0 10.9 >5.0 Calf Lat Mall 2.1 14.0 67 Right Sural Anti Sensory (Lat Mall) Calf ? 1.8 2.7 <4.0 6.3 >5.0 Calf Lat Mall 1.8 14.0 78 Motor Summary Table ?Stim Site NR Onset (ms) Norm Onset (ms) O-P Amp (mV) Norm O-P Amp iAmp (mV) Amp (1st) (%) Site1 Site2 Delta-0 (ms) Dist (cm) Nimesh (m/s) Norm Nimesh (m/s) Left Peroneal Motor (Ext Dig Brev) Ankle ? 4.6 <4.0 10.8 >2.5 13.6 100.0 Ankle Ext Dig Brev 4.6 0.0 B Fib ? 12.0 9.8 12.3 90.7 B Fib Ankle 7.4 36.0 49 >40 Poplt ? 13.2 9.5 11.9 88.0 Poplt B Fib 1.2 5.0 42 >40 Right Peroneal Motor (Ext Dig Brev) Ankle ? 4.5 <4.0 9.2 >2.5 11.3 100.0 Ankle Ext Dig Brev 4.5 0.0 B Fib ? 11.4 7.0 8.6 76.1 B Fib Ankle 6.9 36.0 52 >40 Poplt ? 12.7 7.0 8.2 76.1 Poplt B Fib 1.3 5.0 38 >40 Left Tibial Motor (Abd Fu Brev) Ankle ? 5.0 <5 11.3 >2.5 20.1 100.0 Ankle Abd Fu Brev 5.0 0.0 Knee ? 13.4 6.4 10.4 56.6 Knee Ankle 8.4 39.0 46 >40 Right Tibial Motor (Abd Fu Brev) Ankle ? 4.7 <5 13.9 >2.5 19.8 100.0 Ankle Abd Fu Brev 4.7 0.0 Knee ? 12.5 4.3 6.6 30.9 Knee Ankle 7.8 43.0 55 >40 EMG ?Side Muscle Nerve Root Ins Act Fibs Psw Amp Dur Poly Recrt Int Pat Comment Right AbdHallucis MedPlantar S1-2 Nml Nml Nml Nml Nml 0 Nml Complete Right AntTibialis Dp Br Peron L4-5 Nml Nml Nml Nml Nml 0 Nml Complete Right PostTibialis Tibial L5, S1 Nml Nml Nml Nml Nml 0 Nml Complete Right MedGastroc Tibial S1-2 Nml Nml Nml Nml Nml 0 Nml Complete Right VastusMed Femoral L2-4 Nml Nml Nml Nml Nml 0 Nml Complete Left AbdHallucis MedPlantar S1-2 Nml Nml Nml Nml Nml 0 Nml Complete Left AntTibialis Dp Br Peron L4-5 Nml Nml Nml Nml Nml 0 Nml Complete Left PostTibialis Tibial L5, S1 Nml Nml Nml Nml Nml 0 Nml Complete Left MedGastroc Tibial S1-2 Nml Nml Nml Nml Nml 0 Nml Complete Left VastusMed Femoral L2-4 Nml Nml Nml Nml Nml 0 Nml Complete FINDINGS: Right peroneal nerve showed prolonged distal latency, normal amplitude and slow conduction velocity across fibular neck. Left peroneal nerve showed prolonged distal latency, normal amplitude and slight slowing of conduction velocity across fibular neck. All other nerves tested were within normal. Concentric needle EMG was performed in selected muscles of the bilateral lower extremity. Study did not reveal signs of electric abnormalities as shown in the table below. IMPRESSION: 1. This is an abnormal study. 2. 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 3. There is no electrodiagnostic evidence for tibial neuropathy. lumbosacral plexopathy, lumbar radiculopathy, or peripheral neuropathy. Thank you for your kind referral. Kiana Liu MD, NEVAEH Board Certified, [place] Board [employer] and Rehabilitation (ABPMR) Board Certified, [place] Board of Electrodiagnostic Medicine (ABEM) CODIN [id number] x 2 MTDD
== END 2024-01-23 10:34 | disposition home or self-care (01) ==
LOC: HO.NEURO 10:33
PROVIDERS: PCP Internal Medicine; Visit Provider Internal Medicine
DX: R20.0 Anesthesia of skin (principal)
CPT/HCPCS: 95886; 95909

== ENCOUNTER → 2024-01-23 10:36 | Outpatient (BNV) | payer OTHER, SELFPAY | PROVIDERS: PCP Internal Medicine; Visit Provider Physical Medicine & Rehabilitation | DX: G57.33 Lesion of lateral popliteal nerve, bilateral lower limbs (principal); R20.2 Paresthesia of skin | CPT/HCPCS: 95886; 95909 ==

== ENCOUNTER 2024-03-09 09:43 | Outpatient (AMB) | payer OTHER, SELFPAY ==
[2024-03-09 09:45] VITALS: BP 114/80; PULSE 62; BMI 29.8
--- NOTE | 2024-03-09 09:45 | MHC.OFFVIS ---
Vital Signs 03/09/24 09:45 Height 5 ft 4 in Weight 173 lb 8.061 oz BMI 29.8 BP 114/80 Blood Pressure Location Lt brachial Position Sitting Pulse 62 Pulse Source Pulse Oximeter Intake Visit Reasons: NTMNG and subclinical hyperthyroidism Intake Note: Patient presents today for NTMNG and subclinical hyperthyroidism follow up, last seen by Dr. Reyes on 07/18/2022. 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 The patient last saw Dr. Reyes on 07/18/2022 Was initially diagnosed with multinodular thyroid in 2020 with thyroid US revealing multiple bilatera thyroid nodules. This was completed after her PCP palpated a goiter during her exam. She presented 05/09/2022 at which time she was noted to have edema of the carotid artery, so FNA biposy was not completed and she was rescheduled for this. She then represented 06/21/2022 and underwent IR guided FNA of her RMP 1.4 cm thyroid nodule. Cytology revealed atypia of undetermined significance (bethesda category III), affirma was benign. She presents today to review these results. Currently denies any dysphagia or hoarseness of voice. Denies sensation of swelling in the neck or difficulty breathing while lying flat. Denies any tenderness in the neck. Denies any palpitations, tremors, weight loss, frequent bowel movements. Denies any ocular complaints, blurred or double vision. Denies hair loss heat or cold intolerance, or confusion. Denies any history of head or neck irradiation. Denies any family history of thyroid cancer. Thyroid US: 04/20/21 Right Thyroid Lobe: 5.1 x 1.8 x 1.9 cm, volume 9.1 mL. Parenchyma: The gland echotexture is homogeneous. Thyroid vascularity is normal. Left Thyroid Lobe: 4.7 x 1.1 x 2.1 cm, volume 5.7 mL. Parenchyma: The gland echotexture is homogeneous. Thyroid vascularity is normal. Isthmus: 3 cm in maximum AP dimension. Estimated total number of nodules greater than or equal to 1 cm: 1. Quilt Stuffer nodules are described as follows: 1. Location: Left inferior. ?? ? Size: 0.8 x 0.4 x 0.7 cm, volume 0.15 mL. ?? ? Nodule characteristics: ?? ? Composition: Cystic(0). ?? ? ACR TI-RADS total points: 0 ?? ? ACR TI-RADS category: 1 2. Location: Left inferior. ?? ? Size: 0.5 x 0.3 x 0.4 cm, volume 0.03 mL. ?? ? Nodule characteristics: ?? ? Composition: Mixed cystic and solid (1). ?? ? Echogenicity: Cannot be determined (1). ?? ? Shape: Not taller than wide (0). ?? ? Margins: Smooth (0). ?? ? Echogenic Foci: None (0). ?? ? ACR TI-RADS total points: 2 ?? ? ACR TI-RADS category: 2 3. Location: Left inferior. ?? ? Size: 0.4 x 0.2 x 0.3 cm, volume 0.01 mL. ?? ? Nodule characteristics: ?? ? Composition: Cystic(0). ?? ? ACR TI-RADS total points: 0 ?? ? ACR TI-RADS category: 1 4. Location: Right inferior. ?? ? Size: 2.5 x 1.5 x 1.6 cm, volume 4.02 mL. ?? ? Nodule characteristics: ?? ? Composition: Mixed cystic and solid (1). ?? ? Echogenicity: Very hypoechoic (3). ?? ? Shape: Taller than wide (3). ?? ? Margins: Smooth (0). ?? ? Echogenic Foci: Peripheral calcifications (2). ?? ? ACR TI-RADS total points: 9 ?? ? ACR TI-RADS category: 5 NODES: No lymphadenopathy is seen in the tissue surrounding the thyroid gland. Labs: Laboratory Tests 12/13/21 12/13/21 13:39 13:39 TSH 0.58 Free T4 0.77 Total T3 88 PFSH Medical History (Updated 03/09/24 @ 09:52 by Kj Cabrera MD) Multinodular goiter (nontoxic) Preeclampsia Multinodular thyroid Hyperthyroidism Enlarged thyroid Foot pain, right Normal Pap smear Gestational diabetes mellitus Eczema Hyperlipidemia Gestational HTN Annual physical exam Surgical History No history of previous surgery Family History Father Diabetes HTN (hypertension) Mother Ectopic Paternal Aunt Lupus Social History Housing: House Alcohol intake: never Patient Tobacco Use Status: Never used Tobacco e-Cigarette/Vaping Use: Never Used Current occupational status: employed Cognitive needs: No Hearing needs: No Vision needs: No Physical Exam Const Other: Thyroid gland is normal size weighs about 15 g. There are no palpable thyroid nodules Assessment & Plan Assessment & Plan (1) Multinodular goiter (nontoxic): Code(s): E04.2 - Nontoxic multinodular goiter Category: Medical Plan: This is a 43-year-old black female with a history of multinodular goiter status post FNA of a right midpole nodule with AUS but benign Affirma. She appears to be clinically and biochemically euthyroid. Plan is to repeat a thyroid ultrasound. Assuming nodule stable in size will discuss options of treatment with the patient including observation versus reaspiration versus surgery but considering size of nodule, observation is probably best option Orders: Orders US thyroid Today E04.2 - Nontoxic multinodular goiter Coding Level of Care Code Est Pt Level 3 (05145) Diagnoses Multinodular goiter (nontoxic) E04.2
== END 2024-03-09 10:13 | disposition home or self-care (01) ==
PROVIDERS: PCP Internal Medicine; Visit Provider Internal Medicine Endocrinology, Diabetes & Metabolism
DX: E04.2 Nontoxic multinodular goiter (principal)
CPT/HCPCS: 99213

== ENCOUNTER → 2024-03-09 09:43 | Outpatient (BNVA) | payer OTHER, SELFPAY | PROVIDERS: PCP Internal Medicine; Visit Provider Internal Medicine Endocrinology, Diabetes & Metabolism | DX: E04.2 Nontoxic multinodular goiter (principal) | CPT/HCPCS: 99212 ==

== ENCOUNTER 2024-03-10 10:16 | Outpatient (REF) | payer OTHER, SELFPAY ==
--- NOTE | ~2024-03-10 | XR_ITS ---
EXAMINATION: Bilateral knee series CLINICAL INFORMATION: Injury of peroneal nerve COMPARISON: None. TECHNIQUE: 3 views of each knee FINDINGS: The bones joints and soft tissues are normal without effusion. Left knee: The bones joints soft tissues are normal without effusion. XR/XR knee RT 3V IMPRESSION: RIGHT KNEE: Normal. LEFT KNEE: Normal.
--- NOTE | ~2024-03-10 | XR_ITS ---
EXAMINATION: Bilateral knee series CLINICAL INFORMATION: Injury of peroneal nerve COMPARISON: None. TECHNIQUE: 3 views of each knee FINDINGS: The bones joints and soft tissues are normal without effusion. Left knee: The bones joints soft tissues are normal without effusion. XR/XR knee LT 3V IMPRESSION: RIGHT KNEE: Normal. LEFT KNEE: Normal.
== END 2024-03-10 10:17 | disposition home or self-care (01) ==
LOC: HO.HOSX 10:16
PROVIDERS: PCP Internal Medicine; Visit Provider Physical Medicine & Rehabilitation
DX: S84.12XA Injury of peroneal nerve at lower leg level, left leg, initial encounter (principal); S84.11XA Injury of peroneal nerve at lower leg level, right leg, initial encounter; M25.50 Pain in unspecified joint; G62.9 Polyneuropathy, unspecified; X58.XXXA Exposure to other specified factors, initial encounter; Y93.9 Activity, unspecified; Y92.9 Unspecified place or not applicable; Y99.9 Unspecified external cause status
CPT/HCPCS: 73562; 99212

== ENCOUNTER 2024-03-10 10:16 | Outpatient (AMB) | payer OTHER, SELFPAY ==
--- NOTE | 2024-03-10 10:18 | A.OFFVIS_ITS ---
Vital Signs 03/10/24 10:20 Height 5 ft 4 in Weight 173 lb BMI 29.7 Intake Visit Reasons: new prob- B/L leg pain Intake Note: Marcia is a 43 year old female who presents today for a a new problem visit with complaints of bilateral leg pain. Patient reports that she is having pain that starts in her knees and radiates down the legs to the feet. She has numbness, tingling and burning in the feet/toes. She has had these symptoms for quite some time now but it has worsened gera the last three months. Previously she was seen with a Adventure Therapist who did a scan (patient unable to clarify which type of imaging) and they state that there was no findings. 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 At least 3 years of numbness on both feet. Pain below knee going to ankles and feet. TIngling and pain on toes. Feet numbness. Worse with sitting. She does tend to cross legs. Non diabetic. Denies foot drop. 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 [place] 7p-7am. Almost works every night. She was prescribed gabapentin but did not take it much. Denies side effects. She was also seen by Dr. Saxena Neurosurgery for neck pain. Did not think she needed surgical intervention. [facility] Medical History (Updated 03/10/24 @ 15:34 by Kiana Liu MD) Multinodular goiter (nontoxic) Preeclampsia Multinodular thyroid Hyperthyroidism Enlarged thyroid Foot pain, right Normal Pap smear Gestational diabetes mellitus Eczema Hyperlipidemia Gestational HTN Annual physical exam Surgical History No history of previous surgery Family History Father Diabetes HTN (hypertension) Mother Ectopic Paternal Aunt Lupus Social History Housing: House Alcohol intake: never Patient Tobacco Use Status: Never used Tobacco e-Cigarette/Vaping Use: Never Used Current occupational status: employed Cognitive needs: No Hearing needs: No Vision needs: No Review of Systems Const All systems reviewed & are unremarkable except as noted in HPI and below Physical Exam Vital Signs: BMI result Body Mass Index 29.7 Constitutional: Patient appears to be in no acute distress, well nourished and well developed. Patient was appropriately conversant and oriented. Good historian. MSK: No specific abnormalities found on inspection of the spine and all extremities. No pain with palpation over the lumbar area. Lumbar ROM was full. Bilateral hip, knee and ankle ROM WNL. No ligamentous laxity or crepitance. No increased effusion. Straight-leg raising test negative. FABERE test negative. Strength is 5/5 in all muscle groups tested. No increased tone noted. No footdrop. Neurological: Neurologic examination of the upper and lower extremities was nonfocal with intact sensation, muscle stretch reflexes and without focal motor deficits . De Oliveira?s negative bilaterally. Babinski was down going bilaterally. Clonus was negative. Gait is non-antalgic without loss of balance. Results Reviewed Results Reviewed: EMG report: IMPRESSION: 1. This is an abnormal study. 2. 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 3. There is no electrodiagnostic evidence for tibial neuropathy. lumbosacral plexopathy, lumbar radiculopathy, or peripheral neuropathy. I reviewed records from the following: Dr. Jackson and Neurosurgery Rheumatology saw her for positive ANDERS, workup is ongoing Assessment & Plan Assessment & Plan (1) Left peroneal nerve injury: Code(s): S84.12XA - Injury of peroneal nerve at lower leg level, left leg, initial encounter Category: Medical Qualifiers: Encounter type: initial encounter Qualified Code(s): S84.12XA - Injury of peroneal nerve at lower leg level, left leg, initial encounter (2) Right peroneal nerve injury: Code(s): S84.11XA - Injury of peroneal nerve at lower leg level, right leg, initial encounter Category: Medical Qualifiers: Encounter type: initial encounter Qualified Code(s): S84.11XA - Injury of peroneal nerve at lower leg level, right leg, initial encounter Plan EMG has shown 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 Fortunately no footdrop seen or any weakness. Would recommend starting physical therapy. Referral placed. For symptoms, we could trial gabapentin again. Just 100 mg once a day. Discussed precautions and what time of the day to take it, as she works at night. For completeness, we will do knee x-rays to see if there is any bony abnormality pinching lateral area. Assessment and plan discussed with patient, and patient was agreeable. All questions were answered thoroughly. Follow-up after PT. Kiana Liu MD, NEVAEH Board Certified, [place] [employer] and Rehabilitation (ABPMR) Board Certified, [place] [employer] Electrodiagnostic [employer] (ABEM) Orders: Orders XR knee RT 3V Today S84.11XA - Injury of peroneal nerve at lower leg level, right leg, initial encounter, S84.12XA - Injury of peroneal nerve at lower leg level, left leg, initial encounter PT Evaluation and Treatment Today S84.11XA - Injury of peroneal nerve at lower leg level, right leg, initial encounter, S84.12XA - Injury of peroneal nerve at lower leg level, left leg, initial encounter XR knee LT 3V Today M25.50 - Pain in unspecified joint, S84.11XA - Injury of peroneal nerve at lower leg level, right leg, initial encounter, S84.12XA - Injury of peroneal nerve at lower leg level, left leg, initial encounter Medications: New gabapentin 100 mg PO BEDTIME 30 caps 1RF Coding Level of Care Code Est Pt Level 4 (03147) Diagnoses Injury of left peroneal nerve, initial encounter S84.12XA Encounter type: initial encounter Injury of right peroneal nerve, initial encounter S84.11XA Encounter type: initial encounter
[2024-03-10 10:20] VITALS: BMI 29.7
== END 2024-03-10 15:43 | disposition home or self-care (01) ==
PROVIDERS: PCP Internal Medicine; Visit Provider Physical Medicine & Rehabilitation
DX: S84.12XA Injury of peroneal nerve at lower leg level, left leg, initial encounter (principal); S84.11XA Injury of peroneal nerve at lower leg level, right leg, initial encounter
CPT/HCPCS: 99214

== ENCOUNTER 2024-03-25 09:34 | Outpatient (REF) | payer OTHER, SELFPAY ==
--- NOTE | ~2024-03-25 | US_ITS ---
EXAMINATION: US THYROID CLINICAL INFORMATION: Nontoxic multinodular goiter. COMPARISON: Thyroid ultrasound 04/24/2023. Ultrasound-guided fine-needle aspiration 06/21/2022 and 05/09/2022. Thyroid ultrasound 04/20/2021. TECHNIQUE: Linear transducer grayscale and color Doppler examination with attention to the region of the thyroid. FINDINGS: SIZE: Measurements of the thyroid lobes and nodules are given in sagittal, anteroposterior and transverse dimensions respectively. Right Thyroid Lobe: 5.0 x 1.5 x 1.8 cm, volume 7.0 mL. Previously 4.9 x 1.5 x 2.1 cm, volume 7.8 mL. Parenchyma: The gland echotexture is homogeneous. Thyroid vascularity is normal. Left Thyroid Lobe: 4.8 x 1.3 x 1.9 cm, volume 6.2 mL. Previously 4.9 x 1.4 x 2.0 cm, volume 6.9 mL. Parenchyma: The gland echotexture is homogeneous. Thyroid vascularity is normal. Isthmus: 0.41 cm in maximum AP dimension. Previously 0.40 cm. Estimated total number of nodules greater than or equal to 1 cm: 1. Manager Respiratory Care nodules are described as follows: 1. Location: Left inferior. Size: 0.83 x 0.50 x 0.74 cm, volume 0.16 mL. Previously: 0.9 x 0.5 x 0.9 cm, volume 0.12 mL. Nodule characteristics: Composition: Mixed cystic and solid (1). Echogenicity: Hypoechoic (2). Shape: Not taller than wide (0). Margins: Smooth (0). Echogenic Foci: None (0). ACR TI-RADS total points: 3. Previous: 0. ACR TI-RADS category: 3. Previous: 1. Significant change in size (>/= 20% in 2 dimensions and minimal increase of 2 mm or 50% or greater increase in volume): No Change in features: Yes Change in ACR TI-RADS risk category: Yes 2. Location: Left inferior. Size: 0.32 x 0.23 x 0.33 cm, volume 0.021 mL. Previously: 0.7 x 0.4 x 0.6 cm, volume 0.09 mL. Nodule characteristics: Composition: Mixed cystic and solid (1). Echogenicity: Cannot be determined (1). Shape: Not taller than wide (0). Margins: Smooth (0). Echogenic Foci: None (0). ACR TI-RADS total points: 2. Previous: 2. ACR TI-RADS category: 2. Previous: 2. Significant change in size (>/= 20% in 2 dimensions and minimal increase of 2 mm or 50% or greater increase in volume): No Change in features: No Change in ACR TI-RADS risk category: No 3. Location: Left inferior. Size: 0.3 x 0.23 x 0.33 cm, volume 0.03 mL. Previously: 0.4 x 0.3 x 0.4 cm, volume 0.5 mL. Nodule characteristics: Composition: Mixed cystic and solid (1). Echogenicity: Cannot be determined (1). Shape: Not taller than wide (0). Margins: Smooth (0). Echogenic Foci: None (0). ACR TI-RADS total points: 2. Previous: 2. ACR TI-RADS category: 2. Previous: 2. Significant change in size (>/= 20% in 2 dimensions and minimal increase of 2 mm or 50% or greater increase in volume): No Change in features: No Change in ACR TI-RADS risk category: No 4. Location: Right inferior. Size: 1.7 x 1.1 x 1.1 cm, volume 1.1 mL. Previously: 1.2 x 1.1 x 1.1 cm, volume 0.08 mL. Nodule characteristics: Composition: Mixed cystic and solid (1). Echogenicity: Cannot be determined (1). Shape: Not taller than wide (0). Margins: Lobulated (2). Echogenic Foci: Macrocalcifications (1). ACR TI-RADS total points: 5. Previous: 5. ACR TI-RADS category: 4. Previous: 4. Significant change in size (>/= 20% in 2 dimensions and minimal increase of 2 mm or 50% or greater increase in volume): Yes Change in features: No Change in ACR TI-RADS risk category: No NODES: No lymphadenopathy is seen in the tissue surrounding the thyroid gland. US/US thyroid IMPRESSION: Right 1.7 cm TR4 thyroid nodule meets criteria for biopsy. Fine-needle aspiration recommended. This study was presented today 05/03/2024 for interpretation. Stat results provided at this time as requested by referring provider. ACR TI-RADS RECOMMENDATION REFERENCE: Ultrasound-guided fine-needle aspiration, follow up ultrasound, no further followup. * TR1 (0 point) and TR2 (2 points): No FNA or followup * TR3 (3 points): FNA if more than or equal to 2.5 cm in maximum dimension, follow up ultrasound in 1, 3 and 5 years if 1.5 to 2.4 cm in maximum dimension. * TR4 (4-6 points): FNA if more than or equal to 1.5 cm in maximum dimension, follow up ultrasound in 1, 2, 3 and 5 years if 1 to 1.4 cm in maximum dimension. * TR5 (more than or equal to 7 points): FNA if more than or equal to 1 cm in maximum dimension, follow up ultrasound every year for 5 years if 0.5 to 0.9 cm in maximum dimension. * TR3, TR4 or TR5 nodules that are below the size threshold for follow up receive no followup.
== END 2024-03-25 09:35 | disposition home or self-care (01) ==
LOC: HO.US 09:34
PROVIDERS: PCP Internal Medicine; Visit Provider Internal Medicine Endocrinology, Diabetes & Metabolism
DX: E04.2 Nontoxic multinodular goiter (principal)
CPT/HCPCS: 76536

== ENCOUNTER 2024-03-26 15:27 | Outpatient (AMB) | payer OTHER, SELFPAY ==
--- OUTSIDE RECORDS SUMMARY | 2024-03-26 15:28 | XMS_ITS | Patient Health Record ---
Author Organization [facility] Philippe oliver Spencer [address] [facility] [place] [address] Care Team Providers Care Web Mobile Designer Name Role Phone Natasha Jim MD Primary Care Provider Bill Mondragon Unavailable [phone] ALLERGIES No Known Allergies REASON FOR REFERRAL No Information MEDICATIONS Medication SIG (Take, Route, Frequency, Duration) Notes Start Date End Date Status Norethindrone 0.35 MG 1 tablet Orally On ce a day for 28 day(s) Not-Taking Aspirin 81 MG 1 tablet Orally Once a day for 30 day(s) Not-Taking SOCIAL HISTORY Tobacco Use: Social History Observation Description Date Details (start date - stop date) Never Smoker NA - NA Sex Assigned At : Social History Observation Description Sex Assigned At Unknown Tobacco Use/Smoking Question Answer Notes Are you a: nonsmoker Additional Findings: Tobacco Non-User Current no n-smoker Alcohol Screen Question Answer Notes Did you have a drink containing alcohol in the p ast year? No Points 0 Interpretation Negative Tobacco use other than smoking: Question Answer Notes Are you an other tobacco user? No PLAN OF TREATMENT Pending Test Test Name Order Date X ray : Foot, left 3V 07/11/2022 X ray : Foot, right 3V 07/11/2022 Insurance Providers Payer Name Payer Address Payer Phone Subscriber Number Group Number Insured Name Patient Relationship to Insured Coverage Start Date Coverage End Date Claims [facility] [address] [address] [place] [address] [id number] Marcia Pearl Self - patient is the insured MEDICAL (GENERAL) HISTORY Medical History History ICD Code Eczema thyroid foot pain Hyperlipidemia Hypertension Surgical History Surgery Date(Month/Year) Hospitalization History Reason Date(Month/Year) Lela- foot pain, xrays
[2024-03-26 15:42] VITALS: BP 122/74; PULSE 80; TEMP 37; O2SAT 98; BMI 29.7
--- NOTE | 2024-03-26 15:42 | AM.OFFWIN_ITS ---
Intake Vital Signs 03/26/24 15:42 Height 5 ft 4 in Weight 173 lb BMI 29.7 BP 122/74 Blood Pressure Location Rt brachial Position Sitting Pulse 80 Pulse Source Pulse Oximeter Temp 98.6 F Temp Source Oral Pulse Oximetry (%) 98 Oxygen Delivery Method Room Air Intake Visit Reasons: sore throat, sinus draining, ear pain, Intake Note: pt is here for sore throat, sinus congestion and ear pain Patient Tobacco Use Status: Never used Tobacco Allergies No Known Allergies Allergy (Verified 03/26/24 15:42) Do you need a note to return to daycare/school/sports/work: No HPI HPI Comments History of Present Illness Details Patient is a 43yo F who presents to office with sore throat She said mucus drainage down back of throw since Friday No nasal congestion of rhinorrhea ST is a 10/10 and worse with swallowing as of today No fever or chills Took tylenol and benadryl without relief No cough, SOB or CP No other complaints PFSH Medical History (Updated 03/26/24 @ 15:56 by Siri Tam PA-C) Multinodular goiter (nontoxic) Preeclampsia Multinodular thyroid Hyperthyroidism Enlarged thyroid Foot pain, right Normal Pap smear Gestational diabetes mellitus Eczema Hyperlipidemia Gestational HTN Annual physical exam Surgical History No history of previous surgery Family History Father Diabetes HTN (hypertension) Mother Ectopic Paternal Aunt Lupus Social History Housing: House Alcohol intake: never Patient Tobacco Use Status: Never used Tobacco e-Cigarette/Vaping Use: Never Used Current occupational status: employed Cognitive needs: No Hearing needs: No Vision needs: No Review of Systems Const Denies chills and Denies fever(s) ENT Reports dysphagia, Reports otalgia, Denies nasal congestion, Reports sore throat (and post nasal drip), Denies throat swelling and Denies tongue swelling Card Denies chest pain and Denies dyspnea Resp Denies cough and Denies dyspnea GI Reports dysphagia Aller/Immun Denies throat swelling and Denies tongue swelling Physical Exam Vital Signs: Last Vital Signs Temp 98.6 F 03/26/24 15:42 Pulse 80 03/26/24 15:42 BP 122/74 03/26/24 15:42 Pulse Ox 98 03/26/24 15:42 Oxygen Delivery Method Room Air 03/26/24 15:42 BMI result Body Mass Index 29.7 General: Non-toxic, NAD. Speaking full sentences. handling secretions Skin: Warm dry throughout Eye: EOMI HENT: Airway patent. Uvula midline. + pharyngeal erythema without exudates or edema. 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 Bilateral canals clear. TM non-erythematous, non-bulging. No TM perforation or hemotympanum noted. Lymph: + tonsillar LN edema and tenderness R>L Respiratory: CTA bilaterally. No wheezes, rales or rhonchi Cardiac: RRR. No murmur MSK: Full ROM extremities. Neurology: A/O. No aphasia or facial droop. Gait without abnormality Psych: Good mood and affect Results AMB Rapid Strep AMB Rapid Strep Negative Last Edit by Jimbo Franklin CMA on 03/26/24 15 :55 Assessment & Plan Assessment & Plan (1) Pharyngitis: Code(s): J02.9 - Acute pharyngitis, unspecified Qualifiers: Pharyngitis/tonsillitis etiology: unspecified etiology Qualified Code(s): J02.9 - Acute pharyngitis, unspecified Plan: Pt seen and evaluated Airway patent without abscess Due to LN edema/tnderness, pharyngeal erythema and discomfort, will cover with amoxicillin Naproxen to pharmacy Er protocol discussed Pt gave verbal understanding and had no additional questions or concerns at this time Orders: Orders AMB Rapid Strep Screen Today Z13.9 - Encounter for screening, unspecified Medications: New naproxen 375 mg PO BID PRN 14 tabs 0RF pain amoxicillin 500 mg PO Q12H 10 days 20 tabs 0RF Coding Level of Care Code Est Pt Level 3 (01640) Diagnoses Pharyngitis, unspecified etiology J02.9 Pharyngitis/tonsillitis etiology: unspecified etiology
== END 2024-03-26 16:46 | disposition home or self-care (01) ==
PROVIDERS: PCP Internal Medicine; Visit Provider Physician Assistant
DX: J02.9 Acute pharyngitis, unspecified (principal)
CPT/HCPCS: 87880; 99213

== ENCOUNTER 2024-05-17 09:17 | Outpatient (AMB) | payer OTHER, SELFPAY ==
--- NOTE | 2024-05-17 09:18 | MHC.OFFVIS ---
Vital Signs 05/17/24 09:22 Height 5 ft 4 in Weight 174 lb 9.698 oz BMI 30.0 BP 120/80 Blood Pressure Location Lt brachial Position Sitting Pulse 78 Pulse Source Pulse Oximeter Pulse Oximetry (%) 99 Oxygen Delivery Method Room Air Intake Visit Reasons: ANDERS +ve/lm Intake Note: Patient presents for ANDERS + ve. Allergies No Known Allergies Allergy (Verified 05/17/24 09:21) Medication List - Last Reconciled 05/17/24 by Dylan Pham MD amoxicillin 500 mg PO Q12H 10 days gabapentin 100 mg PO BEDTIME naproxen 375 mg PO BID PRN sertraline 50 mg PO DAILY HPI Comments Details: Patient returns for follow-up after completion of her diagnostic workup Initial hx: This is a 43-year-old female who was referred by her PCP for evaluation of positive ANDERS. Patient states that she has been having tingling and numbness of her feet for 3-4 years, she states that she was evaluated by a tire room supervisor and nothing was found. She states that over the last year this tingling, numbness and diffuse pain has progressed to involve her entire body including her arms, breasts, legs, thighs, back. She states that she gets intermittent rashes on her thighs, elbows and chest, they happen every few months, she can not identify any triggers including sun exposure. It has not itchy. She does apply lotion on them and they self-resolved. Today she has a small rash on her right elbow. She denies any fevers, weight loss, denies any hair loss. Denies oral ulcers. Denies any blood or froth in urine. Denies swollen joints. Denies any history of DVT/PE. She had 5 pregnancies, 3 children, 1 and 1 miscarriage. She states that she has an aunt back in [place] who passed from lupus in her 50s. 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 Currently she is going to nursing school so she cut her working hours anywhere from 8-24 hours a week. She was referred to do an EMG/NCV by her PCP. [facility] Medical History Multinodular goiter (nontoxic) Preeclampsia Multinodular thyroid Hyperthyroidism Enlarged thyroid Foot pain, right Normal Pap smear Gestational diabetes mellitus Eczema Hyperlipidemia Gestational HTN Annual physical exam Surgical History No history of previous surgery Family History Father Diabetes HTN (hypertension) Mother Ectopic Paternal Aunt Lupus Social History Housing: House Alcohol intake: never Patient Tobacco Use Status: Never used Tobacco e-Cigarette/Vaping Use: Never Used Current occupational status: employed Cognitive needs: No Hearing needs: No Vision needs: No Female Reproductive History Menstrual Total pregnancies: 5 Full term: 3 Ab induced: 1 Ab spontaneous: 1 Review of Systems Musc Reports myalgias, Denies arthralgias, Reports numbness and Reports tingling Skin/Breast Reports rash Neuro Reports numbness and Reports tingling Physical Exam Vital Signs: Last Vital Signs Pulse 78 05/17/24 09:22 BP 120/80 05/17/24 09:22 Pulse Ox 99 05/17/24 09:22 Oxygen Delivery Method Room Air 05/17/24 09:22 BMI result Body Mass Index 30.0 Const General: cooperative, healthy appearing and comfortable Nutritional Appearance: overweight Orientation/consciousness: patient oriented x3 Limitations: no limitations HEENT Head: Yes normocephalic and Yes atraumatic Resp Effort & Inspection: normal respiratory effort and able to speak in complete sentences GI Inspection: No distended Palpation (GI): Soft to palpation and nontender Neuro General: patient oriented x3 Extrem Other: No active synovitis Normal nailfold capillaroscopy Assessment & Plan Assessment & Plan (1) Positive ANDERS (antinuclear antibody): Code(s): R76.8 - Other specified abnormal immunological findings in serum Category: Medical Plan: This is a 43-year-old female who presents for evaluation of a positive ANDERS in the context of diffuse pain and tingling/numbness. She states that has an aunt who from SLE. Upon evaluation I do not see any signs suggestive of an autoimmune rheumatic disease and comprehensive serology is negative. Discussed with patient that about 20% of the population can have a positive ANDERS with no clinical significance. Discussed symptoms and signs that are suggestive of an autoimmune rheumatic disease. Advised patient to return as needed Plan I spent 15 minutes reviewing patient's chart, evaluating patient, counseling patient and documenting in the chart Coding Level of Care Code Est Pt Level 3 (24715) Diagnoses Positive ANDERS (antinuclear antibody) R76.8
[2024-05-17 09:22] VITALS: BP 120/80; PULSE 78; O2SAT 99
== END 2024-05-17 09:40 | disposition home or self-care (01) ==
PROVIDERS: PCP Internal Medicine; Visit Provider Student in an Organized Health Care Education/Training Program
DX: R76.8 Other specified abnormal immunological findings in serum (principal)
CPT/HCPCS: 99213

== ENCOUNTER → 2024-05-17 09:17 | Outpatient (BNVA) | payer OTHER, SELFPAY | PROVIDERS: PCP Internal Medicine; Visit Provider Student in an Organized Health Care Education/Training Program | DX: R76.8 Other specified abnormal immunological findings in serum (principal) | CPT/HCPCS: 99212 ==

== ENCOUNTER 2024-05-26 08:38 | Outpatient (REF) | payer OTHER, SELFPAY ==
--- NOTE | ~2024-05-26 | XR_ITS ---
EXAMINATION: X-ray bilateral tibia and fibula CLINICAL INFORMATION: Pain COMPARISON: Correlation x-ray right knee 03/10/2024 TECHNIQUE: Bilateral tibia and fibula each 2 views FINDINGS: Left tibia and fibula: No evidence of acute fracture or malalignment. No suspicious bony lesions seen. No abnormal soft tissue calcification. Articulation at the knee and ankle is maintained. Right tibia and fibula: No evidence of acute fracture malalignment. No suspicious bony lesions seen. No abnormal soft tissue calcification. Knee and ankle articulation is maintained. XR/XR tibia fibula LT 2V IMPRESSION: No acute osseous abnormality.
--- NOTE | ~2024-05-26 | XR_ITS ---
EXAMINATION: X-ray bilateral tibia and fibula CLINICAL INFORMATION: Pain COMPARISON: Correlation x-ray right knee 03/10/2024 TECHNIQUE: Bilateral tibia and fibula each 2 views FINDINGS: Left tibia and fibula: No evidence of acute fracture or malalignment. No suspicious bony lesions seen. No abnormal soft tissue calcification. Articulation at the knee and ankle is maintained. Right tibia and fibula: No evidence of acute fracture malalignment. No suspicious bony lesions seen. No abnormal soft tissue calcification. Knee and ankle articulation is maintained. XR/XR tibia fibula RT 2V IMPRESSION: No acute osseous abnormality.
== END 2024-05-26 08:39 | disposition home or self-care (01) ==
LOC: HO.HOSX 08:38
PROVIDERS: PCP Internal Medicine; Visit Provider Physical Medicine & Rehabilitation
DX: M79.604 Pain in right leg (principal); M79.605 Pain in left leg; G62.9 Polyneuropathy, unspecified
CPT/HCPCS: 73590; 99212

== ENCOUNTER 2024-05-26 08:38 | Outpatient (AMB) | payer OTHER, SELFPAY ==
[2024-05-26 08:42] VITALS: BMI 29.9
--- NOTE | 2024-05-26 08:42 | A.OFFVIS_ITS ---
Vital Signs 05/26/24 08:42 Height 5 ft 4 in Weight 174 lb BMI 29.9 Intake Visit Reasons: OV - bilateral peroneal neuropathy Intake Note: Marcia is a 43 year old female who presents today for a follow up on bilateral knee peroneal nerve injury. Patient reports that she did not attend physical therapy. She explains that she has pain everywhere. She was recently seen with Rheumatology due to symptoms and signs that are suggestive of an autoimmune rheumatic disease. Positive ANDERS but Rheumatology did not think it was clinically significant. Allergies No Known Allergies Allergy (Verified 05/26/24 08:45) Medication List - Last Reconciled 05/26/24 by Kiana Liu MD gabapentin 100 mg PO BEDTIME naproxen 375 mg PO BID PRN sertraline 50 mg PO DAILY HPI HPI OV - bilateral peroneal neuropathy: Details: Marcia is a 43 year old female who presents today for a follow up on bilateral knee peroneal nerve injury. Patient reports that she did not attend physical therapy. She explains that she has pain everywhere . 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 At least 3 years of numbness on both feet. Pain below knee going to ankles and feet. TIngling and pain on toes. Feet numbness. Worse with sitting. She does tend to cross legs. Non diabetic. Denies foot drop. 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 [place] 7p-7am. Almost works every night. She was prescribed gabapentin but did not take it much. Denies side effects. She was also seen by Dr. Saxena Neurosurgery for neck pain. Did not think she needed surgical intervention. She was recently seen with Rheumatology due to symptoms and signs that are suggestive of an autoimmune rheumatic disease. Positive ANDERS but Rheumatology did not think it was clinically significant. Has only taken gabapentin as needed, only when she remembers. Last was more than a week. She did not go to PT. Pain on lower legs, knees, sometimes ankles. [facility] Medical History (Updated 05/26/24 @ 08:59 by Kiana Liu MD) Leg pain, bilateral Multinodular goiter (nontoxic) Preeclampsia Multinodular thyroid Hyperthyroidism Enlarged thyroid Foot pain, right Normal Pap smear Gestational diabetes mellitus Eczema Hyperlipidemia Gestational HTN Annual physical exam Surgical History No history of previous surgery Family History Father Diabetes HTN (hypertension) Mother Ectopic Paternal Aunt Lupus Social History Housing: House Alcohol intake: never Patient Tobacco Use Status: Never used Tobacco e-Cigarette/Vaping Use: Never Used Current occupational status: employed Cognitive needs: No Hearing needs: No Vision needs: No Physical Exam Vital Signs: BMI result Body Mass Index 29.9 Constitutional: Patient appears to be in no acute distress, well nourished and well developed. Patient was appropriately conversant and oriented. Good historian. MSK: No specific abnormalities found on inspection of the spine and all extremities. Bilateral hip, knee and ankle ROM WNL. No ligamentous laxity or crepitance. No increased effusion. No calf tenderness. Strength is 5/5 in all muscle groups tested. No increased tone noted. No footdrop. Neurological: Neurologic examination of the upper and lower extremities was nonfocal with intact sensation, muscle stretch reflexes and without focal motor deficits . Babinski was down going bilaterally. Clonus was negative. Gait is non-antalgic without loss of balance. Results Reviewed Results Reviewed: EMG report: IMPRESSION: 1. This is an abnormal study. 2. 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 3. There is no electrodiagnostic evidence for tibial neuropathy. lumbosacral plexopathy, lumbar radiculopathy, or peripheral neuropathy. Ordering Physician: Kiana Daniel Date of Service: 03/10/24 Procedure(s): XR knee LT 3V Accession Number(s): [id number] cc: Natasha Jim MD; Kiana Daniel~ EXAMINATION: Bilateral knee series CLINICAL INFORMATION: Injury of peroneal nerve COMPARISON: None. TECHNIQUE: 3 views of each knee FINDINGS: The bones joints and soft tissues are normal without effusion. Left knee: The bones joints soft tissues are normal without effusion. XR/XR knee LT 3V IMPRESSION: RIGHT KNEE: Normal. LEFT KNEE: Normal. I reviewed records from the following: Rheumatology Assessment & Plan Assessment & Plan (1) Leg pain, bilateral: Code(s): M79.604 - Pain in right leg; M79.605 - Pain in left leg Category: Medical Plan Exam overall is unremarkable. Knee x-rays normal. Rheumatology did not think positive ANDERS is clinically significant. No footdrop despite EMG findings of peroneal neuropathy. Last fasting glucose was within normal, nondiabetic. Patient did not take gabapentin or go to PT as previously advised. We can do tibia/fibula x-rays today for further evaluation. Assessment and plan discussed with patient, and patient was agreeable. All questions were answered thoroughly. Kiana Liu MD, NEVAEH Board Certified, [place] [employer] and [employer] (ABPMR) Board Certified, [place] Board [employer] Electrodiagnostic [employer] (ABEM) Orders: Orders XR tibia fibula LT 2V Today M79.604 - Pain in right leg, M79.605 - Pain in left leg XR tibia fibula RT 2V Today M79.604 - Pain in right leg, M79.605 - Pain in left leg Medications: Discontinued gabapentin Discontinued Reason: Patient no longer taking 100 mg PO BEDTIME 30 caps 1RF Coding Level of Care Code Est Pt Level 3 (65624) Diagnoses Leg pain, bilateral M79.604; M79.605
== END 2024-05-26 11:27 | disposition home or self-care (01) ==
PROVIDERS: PCP Internal Medicine; Visit Provider Physical Medicine & Rehabilitation
DX: M79.604 Pain in right leg (principal); M79.605 Pain in left leg
CPT/HCPCS: 99214

== ENCOUNTER 2024-08-04 14:05 | Outpatient (AMB) | payer OTHER, SELFPAY ==
[2024-08-04 14:16] VITALS: BP 124/82; BMI 29.7
--- NOTE | 2024-08-04 14:16 | A.OFFVIS_ITS ---
Vital Signs 08/04/24 14:16 Height 5 ft 4 in Weight 173 lb BMI 29.7 BP 124/82 Blood Pressure Location Rt brachial Position Sitting Intake Visit Reasons: INP-Anesthesia of skin Intake Note: patient having tingling in feet toes and fingers. Allergies No Known Allergies Allergy (Verified 05/26/24 08:45) Medication List - Last Reconciled 08/04/24 by Fabiana Alvarez MD gabapentin 100 mg PO DAILY naproxen 375 mg PO BID PRN sertraline 50 mg PO DAILY HPI Comments Details: 44y/o female comes for further managemnt of bilateral peroneal neuropathy. she started having intermittent burning sensation in [place] feet in 2018 when she was .she was seen by a banking analyst who did not find a cause. she also has on and off tingling in the plantar surfaces. In 2019 she had COVID she started having burning sensation in her lower back radiating up the spine and sometimes in her trunk and her face etc Moving around helps. she had EMG LE in December 2023 and it showed [place] peroneal neuropathy. she also has some abnormal twitching when she is resting.she feels her bed sheets garnett snot feel right- feels rough. she has snoring and has frequent arousals and hypersomnia. she has back and neck pain. No urinary urgency or incontinence. [facility] Medical History (Updated 08/04/24 @ 15:10 by Fabiana Alvarez MD) Paresthesias Hypersomnia Snoring Leg pain, bilateral Multinodular goiter (nontoxic) Preeclampsia Multinodular thyroid Hyperthyroidism Enlarged thyroid Foot pain, right Normal Pap smear Gestational diabetes mellitus Eczema Hyperlipidemia Gestational HTN Annual physical exam Surgical History No history of previous surgery Family History Father Diabetes HTN (hypertension) Mother Ectopic Paternal Aunt Lupus Social History Housing: House Alcohol intake: never Patient Tobacco Use Status: Never used Tobacco e-Cigarette/Vaping Use: Never Used Current occupational status: employed Cognitive needs: No Hearing needs: No Vision needs: No Physical Exam Vital Signs: Last Vital Signs BP 124/82 08/04/24 14:16 BMI result Body Mass Index 29.7 Const General: cooperative, healthy appearing, comfortable and no acute distress Nutritional Appearance: overweight Orientation/consciousness: patient oriented x3 Limitations: no limitations Eyes Pupils: Equal, round and reactive pupils present Neck Neck: Yes no meningeal signs Neuro General: patient oriented x3, gait normal, tone normal, moves all extremities, no meningeal signs and no focal motor deficits Cranial nerves: Yes Facial sensation intact/muscles of mastication intact, Yes Equal, round and reactive pupils present, Yes Bilaterally intact EOM present, Y es Nystagmus not present, Yes Normal facial strength present, Yes Midline tongue present and Yes Symmetric palate elevation present Cognition (Neuro): normal cognition Gait exam (Neuro): Normal gait present Motor exam (neuro): 5/5 motor strength present throughout and Normal motor muscle tone present throughout Deep tendon reflexes (DTR's): Right triceps reflex intensity grade: 2+, Left triceps reflex intensity grade: 2+, Rt Biceps (C5, C6): 2+, Left biceps reflex intensity grade: 2+, Right brachioradialis reflex intensity grade: 2+, Left brachioradialis reflex intensity grade: 2+, Right patellar reflex intensity grade: 2+ and Left patellar reflex intensity grade: 2+ Coordination: [id number] test normal Results Reviewed Results Reviewed: 09/18 C spine MRI -Multilevel cervical spondylosis as described above, worst at C5-C6 where there is mild to moderate right eccentric spinal canal stenosis and mild bilateral neural foraminal narrowing. -Partially imaged bilateral thyroid lobe nodules, better evaluated with dedicated thyroid ultrasound. 01/17 EMG This is an abnormal study. 2. 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 3. There is no electrodiagnostic evidence for tibial neuropathy. lumbosacral plexopathy, lumbar radiculopathy, or peripheral neuropathy. Assessment & Plan Assessment & Plan (1) Paresthesias: Comment: fluctuating burning sensation with tingling and abnormal twitching in different parts of the body ? Restless legs syndrome ? cervical spinal stenosis Code(s): R20.2 - Paresthesia of skin Category: Medical (2) Right peroneal nerve injury: Code(s): S84.11XA - Injury of peroneal nerve at lower leg level, right leg, initial encounter Category: Medical Qualifiers: Encounter type: initial encounter Qualified Code(s): S84.11XA - Injury of peroneal nerve at lower leg level, right leg, initial encounter (3) Left peroneal nerve injury: Code(s): S84.12XA - Injury of peroneal nerve at lower leg level, left leg, initial encounter Category: Medical Qualifiers: Encounter type: initial encounter Qualified Code(s): S84.12XA - Injury of peroneal nerve at lower leg level, left leg, initial encounter (4) Snoring: Code(s): R06.83 - Snoring Category: Medical (5) Hypersomnia: Code(s): G47.10 - Hypersomnia, unspecified Category: Medical Plan I will check her ferritin level B12 Vit D Cbc and CMP Home sleep test to r/o sleep apnea Increase gabapentin 300mg qhs will monitor peroneal nerve injury - counseled on avoiding pressure or injuires to her knees Orders: Orders Ferritin Today R20.0 - Anesthesia of skin Complete Blood Count Auto Diff Today R20.0 - Anesthesia of skin RT home sleep study Today G47.10 - Hypersomnia, unspecified, R06.83 - Snoring Vitamin B12 and Folate Today R20.0 - Anesthesia of skin TSH reflex Free T4 Today R20.0 - Anesthesia of skin Comprehensive Met. Panel Today R20.0 - Anesthesia of skin Medications: New gabapentin 300 mg PO DAILY 30 caps 3RF Coding Level of Care Code New Pt Level 4 (30254) Diagnoses Paresthesias R20.2 Injury of right peroneal nerve, initial encounter S84.11XA Encounter type: initial encounter Injury of left peroneal nerve, initial encounter S84.12XA Encounter type: initial encounter Snoring R06.83 Hypersomnia G47.10
== END 2024-08-04 15:26 | disposition home or self-care (01) ==
PROVIDERS: PCP Internal Medicine; Visit Provider Psychiatry & Neurology Neurology
DX: R20.2 Paresthesia of skin (principal); S84.11XA Injury of peroneal nerve at lower leg level, right leg, initial encounter; S84.12XA Injury of peroneal nerve at lower leg level, left leg, initial encounter; R06.83 Snoring; G47.10 Hypersomnia, unspecified
CPT/HCPCS: 99204

== ENCOUNTER → 2024-08-04 14:05 | Outpatient (BNVA) | payer OTHER, SELFPAY | PROVIDERS: PCP Internal Medicine; Visit Provider Psychiatry & Neurology Neurology ==

== ENCOUNTER 2024-08-04 14:59 | Outpatient (REF) | payer OTHER, SELFPAY ==
[2024-08-04 18:11] LABS: MANUAL DIFF FLAG NO
[2024-08-04 18:24] LABS: Basophils Absolute Auto 0.1 X10*3/uL (0.0-0.2); Basophils Percent Auto 0.8 % (0-2); Eosinophils Absolute Auto 0.4 X10*3/uL (0.0-0.4); Eosinophils Percent Auto 5.2 % (0-4); Hemoglobin 13.4 g/dl (12.0-16.0); Imm Gran Abs Auto 0.02 X10*3/uL (0.00-0.03); Imm Gran Pct Auto 0.3 % (0.0-0.4); Lymphocytes Absolute Auto 1.6 X10*3/uL (1.2-4.9); Lymphocytes Percent Auto 21.7 % (20-40); Mean Corpuscular HGB Conc 32.7 g/dl (31.0-35.0); Mean Corpuscular Volume 91.9 fL (80.0-98.0); Mean Platelet Volume 10.1 fL (9.4-12.3); Monocytes Absolute Auto 0.8 X10*3/uL (0.1-1.2); Monocytes Percent Auto 10.9 % (2-11); Neutrophils Absolute Auto 4.6 x10*3/uL (2.0-8.3); Neutrophils Percent Auto 61.1 % (45-73); Platelet Count 323 X10*3/uL (160-400); Red Blood Count 4.46 X10*6/uL (4.20-5.50); Red Cell Distribution Width 12.4 % (11.0-16.0); White Blood Count 7.5 X10*3/uL (4.8-10.8)
[2024-08-04 18:43] LABS: Alanine Aminotransferase 17 U/L (0-31); Albumin Level 4.1 g/dL (3.5-5.0); Alkaline Phosphatase 69 U/L (39-117); Anion Gap 12 (12-20); Aspartate Amino Transferase 17 U/L (5-31); Bilirubin Total 0.3 mg/dL (0.0-1.0); Blood Urea Nitrogen 12 mg/dL (9-16); Calcium 9.1 mg/dL (8.4-10.2); Carbon Dioxide 25 mmol/L (22-29); Chloride 106 mmol/L (96-108); Estimated Glomerular Filt Rate > 60; Glucose Random 83 mg/dL (60-115); Sodium 139 mmol/L (135-145); Total Protein 7.8 g/dL (6.5-8.0)
[2024-08-04 18:47] LABS: Ferritin 46 ng/mL (10-250)
[2024-08-04 19:05] LABS: Vitamin B12 807 pg/mL (200-900)
== END 2024-08-04 15:00 | disposition home or self-care (01) ==
LOC: HO.HKASLDS 14:59
PROVIDERS: Visit Provider Psychiatry & Neurology Neurology
DX: R20.0 Anesthesia of skin (principal); R20.2 Paresthesia of skin; S84.11XA Injury of peroneal nerve at lower leg level, right leg, initial encounter; S84.12XA Injury of peroneal nerve at lower leg level, left leg, initial encounter; R06.83 Snoring; G47.10 Hypersomnia, unspecified; G62.9 Polyneuropathy, unspecified
CPT/HCPCS: 36415; 80053; 82607; 82728; 82746; 84443; 85025; 99202

== ENCOUNTER → 2024-09-14 11:13 | Outpatient (REF) | payer OTHER, SELFPAY | LOC: HO.SL 11:13 | PROVIDERS: PCP Internal Medicine; Visit Provider Psychiatry & Neurology Neurology | DX: R06.83 Snoring (principal); G47.10 Hypersomnia, unspecified | CPT/HCPCS: 95806 ==

== ENCOUNTER → 2024-09-14 11:29 | Outpatient (BNV) | payer OTHER, SELFPAY | PROVIDERS: PCP Internal Medicine; Visit Provider Psychiatry & Neurology Neurology | DX: R06.83 Snoring (principal); G47.10 Hypersomnia, unspecified | CPT/HCPCS: 95806 ==

== ENCOUNTER 2024-09-21 09:33 | Outpatient (AMB) | payer OTHER, SELFPAY ==
--- OUTSIDE RECORDS SUMMARY | 2024-09-21 09:34 | XMS_ITS | Patient Health Record ---
Author Organization [facility] [place] Address [address] [facility] [place] [address] Care Team Providers Care Inventory Management Specialist Name Role Phone Natasha Jim MD Primary Care Provider Bill Mondragon Unavailable [phone] Allergies No Known Allergies Reason For Referral No Information Medications Medication SIG (Take, Route, Frequency, Duration) Notes Start Date End Date Status Norethindrone 0.35 MG 1 tablet Orally On ce a day for 28 day(s) Not-Taking Aspirin 81 MG 1 tablet Orally Once a day for 30 day(s) Not-Taking Social History Tobacco Use: Social History Observation Description Date Details (start date - stop date) Never Smoker NA - NA Tobacco Use/Smoking Question Answer Notes Are you a: nonsmoker Additional Findings: Tobacco Non-User Current no n-smoker Alcohol Screen Question Answer Notes Did you have a drink containing alcohol in the p ast year? No Points 0 Interpretation Negative Tobacco use other than smoking: Question Answer Notes Are you an other tobacco user? No Plan Of Treatment Pending Test Test Name Order Date X ray : Foot, left 3V 07/11/2022 X ray : Foot, right 3V 07/11/2022 Insurance Providers Payer Name Payer Address Payer Phone Subscriber Number Group Number Insured Name Patient Relationship to Insured Coverage Start Date Coverage End Date Claims [facility] [employer] [address] [address] [place] [address] [phone] [id number] Marcia Pearl Self - patient is the insured Medical (General) History Medical History History ICD Code Eczema thyroid foot pain Hyperlipidemia Hypertension Surgical History Surgery Date(Month/Year) Hospitalization History Reason Date(Month/Year) Lela- foot pain, xrays
[2024-09-21 10:10] VITALS: BP 140/98; PULSE 84; O2SAT 100; BMI 30.6
--- NOTE | 2024-09-21 10:10 | AM.OFFWIN_ITS ---
Intake Vital Signs 09/21/24 10:10 09/21/24 10:55 Height 5 ft 4 in Weight 178 lb 2 oz BMI 30.6 BP 140/98 H 132/80 Blood Pressure Location Lt brachial Rt brachial Position Sitting Sitting Pulse 84 Pulse Source Pulse Oximeter Pulse Oximetry (%) 100 Oxygen Delivery Method Room Air Intake Visit Reasons: EP-lt abdominal pain Intake Note: Patient here for left sided abdominal pain that started last week. Patient Tobacco Use Status: Never used Tobacco Allergies No Known Allergies Allergy (Verified 09/21/24 10:17) Do you need a note to return to daycare/school/sports/work: No HPI HPI Comments History of Present Illness Details 44 y/o female patient who presents to [facility] walk in clinic with c/o left sided abdominal pain for 1 week. Describes the pain as like a baby moving inside . Reports that discomfort starts at the left lower abdomen radiating to the upper left side abdomen. Describes the pain as waves and tingling feeling. Denies other GI symptoms. Denies urinary symptoms. Sexually active with 1 male partner - she has Paragard IUD. No chance of . She follows with Neurology for B/L Peroneal Neuropathy and Paresthesia of skin. Not clear if this is related to the current symptoms. 09/18 C spine MRI -Multilevel cervical s pondylosis as described above, worst at C5-C6 where there is mild to moderate right eccentric spinal canal stenosis and mild bilateral neural foraminal narrowing. [facility] Medical History (Updated 08/04/24 @ 15:10 by Fabiana Alvarez MD) Paresthesias Hypersomnia Snoring Leg pain, bilateral Multinodular goiter (nontoxic) Preeclampsia Multinodular thyroid Hyperthyroidism Enlarged thyroid Foot pain, right Normal Pap smear Gestational diabetes mellitus Eczema Hyperlipidemia Gestational HTN Annual physical exam Surgical History No history of previous surgery Family History Father Diabetes HTN (hypertension) Mother Ectopic Paternal Aunt Lupus Social History Housing: House Alcohol intake: never Patient Tobacco Use Status: Never used Tobacco e-Cigarette/Vaping Use: Never Used Current occupational status: employed Cognitive needs: No Hearing needs: No Vision needs: No Review of Systems Const All systems reviewed & are unremarkable except as noted in HPI and below Physical Exam Vital Signs: Last Vital Signs Pulse 84 09/21/24 10:10 BP 132/80 09/21/24 10:55 Pulse Ox 100 09/21/24 10:10 Oxygen Delivery Method Room Air 09/21/24 10:10 BMI result Body Mass Index 30.6 Const General: cooperative and no acute distress Nutritional Appearance: overweight Orientation/consciousness: patient oriented x3 Resp Effort & Inspection: normal respiratory effort Cardio Heart sounds: S1 normal heart sound present and S2 normal heart sound present GI Inspection: Yes Abdominal panniculus present and Yes obesity Palpation (GI): Soft to palpation, not firm, nontender, no guarding, not rigid and No hepatosplenomegaly present Auscultation: Hypoactive bowel sounds present Rectal Exam - Female: deferred Neuro General: patient oriented x3, gait normal and moves all extremities Extrem General: Yes normal to inspection, Yes full ROM and Yes capillary refill normal Psych Speech and movement: Normal speech and movement present Assessment & Plan Assessment & Plan (1) Paresthesia of skin: Code(s): R20.2 - Paresthesia of skin Plan: Continue f/u with Neurology. No clear etiology of the current symptoms. Will try ?Flexeril She is already on Gabapentin. Medications: New cyclobenzaprine 10 mg PO BEDTIME 10 tabs 0RF R20.2 - Paresthesia of skin Coding Level of Care Code Est Pt Level 3 (13638) Diagnoses Paresthesia of skin R20.2 Time Spent (min) 15
[2024-09-21 10:55] VITALS: BP 132/80
== END 2024-09-21 12:35 | disposition home or self-care (01) ==
PROVIDERS: PCP Internal Medicine; Visit Provider Nurse Practitioner Family
DX: R20.2 Paresthesia of skin (principal)

== ENCOUNTER → 2024-09-21 09:33 | Outpatient (BNVA) | payer OTHER, SELFPAY | PROVIDERS: PCP Internal Medicine; Visit Provider Nurse Practitioner Family | DX: R20.2 Paresthesia of skin (principal) | CPT/HCPCS: 99212 ==

== ENCOUNTER 2024-10-06 11:02 | Outpatient (AMB) | payer OTHER, SELFPAY ==
[2024-10-06 11:06] VITALS: BP 114/78; PULSE 82; O2SAT 98; BMI 30.2
--- NOTE | 2024-10-06 11:06 | A.OFFPC_ITS ---
Vital Signs 10/06/24 11:06 Height 5 ft 4 in Weight 176 lb BMI 30.2 BP 114/78 Blood Pressure Location Rt brachial Position Sitting Pulse 82 Pulse Source Pulse Oximeter Pulse Oximetry (%) 98 Oxygen Delivery Method Room Air Intake Visit Reasons: F/up abd pain walk in visit on 09/21/24 Intake Note: Pt is here today for a follow up visit after being seen in a walk in for abdomi nal pain. Allergies No Known Allergies Allergy (Verified 10/06/24 11:09) Medication List - Last Reconciled 10/06/24 by Natasha Jim MD gabapentin 300 mg PO DAILY sertraline 50 mg PO DAILY Tobacco use date assessed: 10/06/24 Dental Screening Dental Screen Date: 11/18/23 HPI F/up abd pain walk in visit on 09/21/24 HPI Details Pt presents for the follow-up of walk in visit for the symptoms of sensation of pressure and movement on the left side of the abdomen, on and off worse after eating large meals. Patient denies pain nausea vomiting change in bowel habits hematochezia melena. Chronic anxiety stable on sertraline. Patient tried gabapentin for bilateral lower extremities pain with slight relief. [facility] Medical History Hyperlipidemia Paresthesias Hypersomnia Snoring Leg pain, bilateral Multinodular goiter (nontoxic) Preeclampsia Multinodular thyroid Hyperthyroidism Enlarged thyroid Foot pain, right Normal Pap smear Gestational diabetes mellitus Eczema Gestational HTN Annual physical exam Surgical History No history of previous surgery Family History Father Diabetes HTN (hypertension) Mother Ectopic Paternal Aunt Lupus Social History Housing: House Alcohol intake: never Patient Tobacco Use Status: Never used Tobacco e-Cigarette/Vaping Use: Never Used service: No Current occupational status: employed Cognitive needs: No Hearing needs: No Vision needs: No Questionnaire PHQ-9 Over the last 2 weeks, how often have you been bothered by any of the following problems? 1. Little interest or pleasure in doing things: not at all 2. Feeling down, depressed, or hopeless: not at all 3. Trouble falling or staying asleep, or sleeping too much: not at all 4. Feeling tired or having little energy: not at all 5. Poor appetite or overeating: not at all 6. Feeling bad about yourself - or that you are a failure or have let yourself or your family down: not at all 7. Trouble concentrating on things, such as reading the newspaper or watching television: not at all 8. Moving or speaking so slowly that other people could have noticed. Or the opposite - being so fidgety or restless that you have been moving around a lot more than usual: not at all 9. Thoughts that you would be better off or of hurting yourself in some way: not at all Total score: 0 Depression Screening Interpretation: Negative Depression Screening Done: Yes 40754 - PHQ-9 Billing: Yes Source: Developed by Drs. Kj Hoang, Geraldine Kwan, Rai Chowdhury and colleagues, with an educational venkat from [employer]. Thrive Questionnaire Date Thrive assessed: 10/06/24 I am a: Patient What is your living situation today?: I have a steady place to live Within the past 12 months, did the food you bought not last and you didn't have the money to get more?: Never true Within the past 12 months, did you worry whether your food would run out before you got money to buy more?: Never true Do you have trouble paying for medicines?: No Do you have trouble getting transportation to medical appointments?: No Do you have trouble paying your heating and electricity bill?: No Do you have trouble taking care of your child, family member or friend?: No Do you have trouble with day-to-day activities such as bathing, preparing meals, shopping, managing finances, etc.?: No Are you currently unemployed and looking for a job?: No Are you interested in more education?: No Please select the resources that you would like help with: None Currently or been in a relationship where the following occur: No concerns reported THRIVE Score: 0 AUDIT C Alcohol Use Questionnaire (AUDIT-C) 1. How often do you have a drink containing alcohol?: Monthly or less 2. How many drinks containing alcohol do you have on a typical day when you are drinking?: 1 or 2 3. How often do you have six or more drinks on one occasion?: Never Total Score: 1 ELDA-7 AMB Questionnaire ELDA-7 Date ELDA - 7 assessed: 10/06/24 Feeling nervous, anxious, or on edge: 0 = Not at all Not being able to stop or control worryin = Not at all Worrying too much about different things: 0 = Not at all Trouble relaxin = Not at all Being so restless that it is hard to sit still: 0 = Not at all Becoming easily annoyed or irritable: 0 = Not at all Feeling afraid as if something awful might happen: 0 = Not at all Total ELDA-7 score (0-4 normal; 5-9 mild; 10-14 moderate; 15-21 severe): 0 Source: Developed by Drs. Kj Hoang, Geraldine Kwan, Rai Chowdhury and colleagues, with an educational venkat from [employer]. Review of Systems Const All systems reviewed & are unremarkable except as noted in HPI and below Eyes Reports no additional complaints ENT Reports no additional complaints Card Reports no additional complaints Resp Reports no additional complaints Reports no additional complaints Physical exam (Primary Care) Vital Signs: Last Vital Signs Pulse 82 10/06/24 11:06 BP 114/78 10/06/24 11:06 Pulse Ox 98 10/06/24 11:06 Oxygen Delivery Method Room Air 10/06/24 11:06 BMI result Body Mass Index 30.2 Tobacco/Smoking Status: Tobacco use Status Tobacco use date assessed 10/06/24 10/06/24 11:13 Patient Tobacco Use Status Never used Tobacco 10/06/24 11:13 e-Cigarette/Vaping Use Never Used 10/06/24 11:13 PHQ-9: PHQ-9 Score PHQ-9: Total score 0 10/06/24 11:13 Depression Screening Interpretation: Negative Thrive Assessment: Date of Thrive Assessment Date Thrive assessed 10/06/24 10/06/24 11:13 Currently or been in a relationship where the following occur: No concerns reported Const General: no acute distress HENMT Head: Yes normal to inspection Ears: hearing grossly normal bilaterally Neck Neck: Yes supple Resp Effort & Inspection: normal respiratory effort Auscultation: clear to auscultation bilaterally Cardio Rhythm: regular rhythm Heart sounds: S1 normal heart sound present and S2 normal heart sound present GI Inspection: Yes normal to inspection Palpation (GI): Soft to palpation Percussion: Yes normal to percussion Auscultation: normal bowel sounds Coding Level of Care Code Est Pt Level 4 (19648) Diagnoses Hyperlipidemia E78.5 Flatulence R14.3 Paresthesias R20.2 Anxiety F41.9 Additional Codes PHQ-9 - 96818 - PHQ-9 Billing: Yes ([id number]) Assessment & Plan Assessment & Plan (1) Hyperlipidemia: Code(s): E78.5 - Hyperlipidemia, unspecified Category: Medical Plan: Continue low-cholesterol diet, return for physical in November with a fasting labs before (2) Flatulence: Code(s): R14.3 - Flatulence Category: Medical Plan: Well-balanced diet ,increase fiber intake discussed with the patient. She will be referred to GI for screening colonoscopy. she will turn 45 next year. (3) Paresthesias: Comment: fluctuating burning sensation with tingling and abnormal twitching, EMG 02/2024 BILATERAL PERONEAL NERVE NEUROPATHY AT THE FIBULAR NECKS Code(s): R20.2 - Paresthesia of skin Category: Medical Plan: Patient has been taking gabapentin as needed (4) Anxiety: Code(s): F41.9 - Anxiety disorder, unspecified Category: Medical Plan: Continue sertraline Orders: Orders Lipid Panel 2 Months E78.5 - Hyperlipidemia, unspecified Referrals Gastroenterology Referral Z00.00 - Encounter for general adult medical examination without abnormal findings
--- OUTSIDE RECORDS SUMMARY | 2024-10-07 01:29 | XMS_ITS | Continuity of Care Document ---
Author Organization Formerly [facility], [facility] vices Address [address] [place] [address] Phone Care Team Providers Care Supplemental Manager Name Role Phone Unavailable Unavailable Unavailable Allergies, [...] Surface, Poste rior Treatment Plans [facility] OFF[facility]/OUTPATIENT VISIT, EST OFFICE/OUTPATIENT VISIT, EST Resin-Based Composite-One Surface, Poste rior Treatment Plan In Process [facility] OFFICE/OUTPATIENT VISIT, EST HEMOGLOBIN URINE TEST, BY VISUAL COLOR CO MPARISON OFFICE/OUTPATIENT VISIT, EST Resin-Based Composite-One Surface, Poste rior Treatment Plan In Process [facility] Comprehensive Oral Evaluation-New Or Est ablished [...] Preliminary ABSOLUTE NEUTROPHILS 16:00:00 6473 cells/ uL 1114-4209 N Preliminary ABSOLUTE LYMPHOCYTES 16:00:00 1523 cells/ [...] N Preliminary REPORT COMMENT:FASTING :YESTest performed at [facility] [address],[place] [address]Twpln tor: SIDDHARTHA FISHER MD Panel Description: OBSTETRIC PANEL Preliminary RUBELLA ANTIBODY (IGG) 00:00:00 7.75 index N Preliminary Index Interpretation ----- <0.90 Not consistent with Immunity 0.90-0.99 Equivocal > or = 1.00 Consistent with Immunity The presence of rubella IgG antibody suggests immunization or past or current infection withrubella virus.Test performed at [facility] [place] [address],[place] [address]Vjxns tor: SIDDHARTHA FISHER MD Panel Description: HIV [...] purpose. For additional information please refer tohttp://educat ion.[employer].com/faq/F AQ106(This link is being provided for informational/e ducational purposes only.) The performance of this assay has not been clinicallyvalid ated in patients less than 2 years old. REPORT COMMENT:FASTING :YESTest performed at [facility] [address],[place] [address]Lxegg tor: SIDDHARTHA FISHER MD Panel Description: OBSTETRIC PANEL Preliminary HEPATITIS B SURFACE ANTIGEN 00:00:00 NON-REACTIV E NON-REACTI VE N Preliminary Test performed at [facility] [address],[place] [address]Vqbpu tor: SIDDHARTHA FISHER MD Panel Description: OBSTETRIC [...] POSITIVE Preliminary REPORT COMMENT:FASTING :YESTest performed at [facility] [address],[place] [address]Qttrp tor: SIDDHARTHA FISHER MD Panel Description: OBSTETRIC PANEL Final RPR (DX) W/REFL TITER AND CONFIRMATOR Y TESTING 13:00:00 NON-REACTIV E NON-REACTI VE N Final REPORT COMMENT:FASTING :YESTest performed at [facility] [address],[place] [address]Mwbnq tor: SIDDHARTHA FISHER MD Panel Description: SICKLE CE LL SCREEN W/REFL HEMOGLOBINOPATHY EVAL Final SICKLE CELL SCREEN 11:00:00 NEGATIVE NEGATIVE N Final Hemoglobin solubility testing alone is insufficientfor detecting or confirming the presence of sicklinghemoglo bins in some situations. Additional testingmay be required for diagnosis of hemoglobinopath ies.For more information on this test go to:http://educa tion.[employer]/faq/ [email or web address] REPORT COMMENT:FASTING :YESTest performed at [facility] [address],[place] [address]Fcczi tor: SIDDHARTHA FISHER MD Panel Description: CYSTIC [...] Detection Before After Negative Rate Test ResultAshkenazi Yarsanism 94% 1 in 24 1 in 400Non- 88% 1 in 25 1 in 208CaucasianHis panic-Scottish 72% 1 in 46 1 in 164African-Amer ican 65% 1 in 65 1 in 186Asian-Americ an 49% 1 in 94 1 in 184Other insufficient data available MUTATIONS/P OLYMORPHISM S 10:00:00 see note Final G85E (c.254G>A ) R334W (c.1000C>T)394d elTT (c.262delTT) R347H (c.1040G>A)R117 H (c.350G>A) R347P (c.1040G>C)621+ 1 G>T (c.489+1G>T) A455E (c.1364C>A)711+ 1 G>T (c.579+1G>T) 1507del (c.1519delATC)1 078delT (c.948delT) W812gup (c.1521delCTT)V 520F (c.1558G>T) R553X (c.1657C>T)1717 -1 G>A (c.1585-1G>A) R560T (c.1679G>C)G542 X (c.1624G>T) 1898+1 G>A (c.1766+1G>A)S5 49N (c.1646G>A) 2183AA>G (c.2051delAAins G)S549R (c.1645A>C or c.1647T>G) 2184delA (c.2052delA)G55 1D (c.1652G>A) 2789+5 G>A (c.2657+5G>A)31 20+1 G>A (c.2988+1G>A) X1308K (c.3846G>A)R116 2X (c.3484C>T) M7451Q (c.3909C>G)3659 delC (c.3528delC)384 9+10kb C>T (C.3717+57992R> T)3876delA (c.3744delA)390 5insT (c.3773insT) This assay detects [...] REVIEWER 10:00:00 see note Final Ifeoma Sears, Ph.D.,[facility] ctor, Molecular Genetics Health care providers, please contact your local [facility]' genetic counselor or call [facility]([phone]) for assistance with interpretation ofthese results. The analytical performance characteristics of thisassay have been determined by [place]. The modificationsha ve not been cleared or approved by the FDA. Thisassay has been validated pursuant to the CLIAregulations and is used for clinical purposes. For additional information, please refer [email or web address] ion.[employer].com/faq/c fscreen(This link is being provided for informational/e ducational purposes only.) REPORT COMMENT:FASTING :Y[facility]est performed at [facility] [place] [address]Cetya tor: RYLEY RIOS MD,PHD Panel Description: Varicella [...] VZV infection.REPOR T COMMENT:FASTING :YESTest performed at [facility] [address],[place] [address]Tdlol tor: SIDDHARTHA FISHER MD Panel Description: Hepatitis B virus surface Ab [Units/volume] in Serum or Plasma by Immunoassay Final HEPATITIS B SURFACE AB IMMUNITY, QN 00:00:00 66 mIU/mL > OR = 10 N Final PATIENT HAS IMMUNITY TO HEPATITIS B VIRUS.For additional information, please refer tohttp://educat ion.[employer].com/faq/F AQ105(This link is being provided for informational/e ducational purposes only).REPORT COMMENT:FASTING :YESTest performed at [facility] [address],[place] [address]Kmtje tor: SIDDHARTHA FISHER MD Panel Description: DRUG [...] interpreting these drug results, please contact a [facility] Toxicology Specialist: [phone] ( ), M-F, 8am-6pm EST.Test performed at [facility] [place] [address],[place] [address]Dlnwp tor: SIDDHARTHA FISHER MD Panel Description: Bacteria identified in Urine by Culture Final CULTURE, URINE, ROUTINE 07:00:00 SEE NOTE Final CULTURE, URINE , ROUTINE MICRO NUMBER: [id number] TEST STATUS: FINAL SPECIMEN SOURCE: URINE SPECIMEN QUALITY: ADEQUATE RESULT: Multiple organisms present, each less than 10,000 CFU/mL. These organisms, commonly found on external and internal genitalia, are considered to be colonizers. No further testing performed.Test performed at [facility] [address],[place] [address]Wjpkp tor: SIDDHARTHA FISHER MD Advance Directives Directive [...] Provider Providers Copied on Encounter VISIT - [facility], [address] [place], [address], [place] tel:[phone] [facility] PNR (chief complaint) Encounter for screening, unspecifiedSp otting complicating , first vifafdhyg28 weeks gestation of pregnancyEnco unter for supervision of other normal , first trimester No Information VISIT - [facility], [address] [place], [address], [place] tel:[phone] [facility] spotting (chief complaint) Body mass index (BMI) 30.0-30.9, adultEncounte r for screening, unspecifiedBl eeding in early wfyyyqrey68 weeks gestation of 7 Fiona Chandler. [address] [facility], [id number] [address] [place] [address], [address], [place]. tel: [phone] VISIT - [facility], [address] [place], [address], [place] tel:[phone] [facility] initial (chief complaint) 8 weeks gestation of pregnancyEnco unter for supervision of other normal , first trimester No Information [facility], [address] [place], [address], [place] tel:[phone] [facility] Ob Ultrasound (chief complaint) Encounter for screening 7 Arin Rouse. [address] [facility], [id number] [address] [place] [address], [address], [place]. 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) Encounter for test, result positiveEncou nter for screening, unspecifiedPe lvic pain in female 7 No Information PREV VISIT, EST, AGE 18-39 [facility], [address] [place], [address], [place] tel:[phone] [facility] Annual Exam (chief complaint)CDC /ZAKI (chief complaint) Encntr for obgyn hospitalist physician exam (general) (routine) w/o abn findings No Information OFFICE/OUTPA TIENT VISIT, [facility], [address] [place] [address], [address], [place] tel:[phone] [facility] Vaginal odor (chief complaint) Body mass index (BMI) 27.0-27.9, adultVaginal odor Mule Geraldine. [address] [facility], [id number] [address] [place] [address], [address], [place]. tel:[phone] [facility], [address] [place] [address], [address], [place] tel:[phone] [facility] Dental Encounter for dental exam and cleaning w/o abnormal findings Sundar Bonilla. [address] [facility], [id number] [address] [place] [address], [id number], [place]. tel:[phone] OFFICE/OUTPA TIENT VISIT, [facility], [address] [place] [address], [address], [place] tel:[phone] [facility] vaginal discharge/itc eva (chief complaint) Body mass index (BMI) 29.0-29.9, adultEncounte r for sexually transmitted disease screeningCand idal vulvovaginiti sOther specified noninflammato ry disorders of vaginaEncount er for screening for other viral diseases No Information OFFICE/OUTPA TIENT VISIT, [facility], [address] [place] [address], [address], [place] tel:[phone] [facility] Follow Up of contraception (chief complaint) Body mass index (BMI) 28.0-28.9, adultEncounte r for test, result negativeEncou nter for surveillance of contraceptive pills No Information [facility], [address] [place] [address], [address], [place] tel:[phone] [facility] Dental Encounter for dental exam and cleaning w/o abnormal findings 6 Aquiles Martinez. [address], [id number] [address] [place] [address], [id number], [place]. tel:[phone] [facility], [address] [place] [address], [address], [place] tel:[phone] [facility] Dental Dental caries on pit and fissure surfc penetrat into dentin 6 No Information OFFICE/OUTPA TIENT VISIT, [facility], [address] [place] [address], [address], [place] tel:[phone] [facility] Womens Health BP check while on COCs (chief complaint) Encounter for other general counseling on contraception No Information OFFICE/OUTPA TIENT VISIT, [facility], [address] [place] [address], [address], [place] tel:[phone] [facility] Adult Medicine right groin pain (chief complaint) Encounter for screening, unspecifiedRi ght groin pain No Information [facility], [address] [place] [address], [address], [place] tel:[phone] [facility] Dental Encounter for dental exam and cleaning w/o abnormal findings Aliyah Ravi. [facility] [place], [id number] [address] [place] [address], [id number], [place]. tel:[phone] Referring Provider: Breonna Ly, [address] [id number] [address] [place] [address], [id number] . tel:[phone] OFFICE/OUTPA TIENT VISIT, [facility], [address] [place] [address], [address], [place] tel:[phone] [facility] Womens Health follow up (chief complaint) Encounter for other general counseling on contraception 6 No Information OFFICE/OUTPA TIENT VISIT, [facility], [address] [place], [address], [place] tel:[phone] [facility] W[facility]ens Health Irregular menses (chief complaint)Adj ust OCPs (chief complaint) Encounter for screening, unspecifiedEn counter for test, result negativeAbnor mal uterine bleeding 6 No Information [facility], [address] [place] [address], [address], [place] tel:[phone] [facility] Dental Encounter for dental exam and cleaning w/o abnormal findings 6 Aliyah Ravi. [facility] [place], [id number] [address] [place] [address], [id number], [place]. [phone] Referring Provider: Breonna Ly, [address] [id number], [place], [address] . tel:[phone] [facility], [address] [place] [address], [address], [place] tel:[phone] [facility] Dental Encounter for dental exam and cleaning w/o abnormal findings 6 Aliyah Ravi. [facility] [place], [id number] [address] [place] [address], [id number], [place]. [phone] Referring Provider: Breonna Ly, [address] [id number] [facility], [place], [address] . tel:[phone] PREV VISIT, [facility], AGE 18-39 [facility], [address] [place] [address], [address], [place] tel:[phone] [facility] Adult Medicine Establish Care (chief complaint) Body mass index (BMI) 28.0-28.9, adultRoutine physical examination 6 No Information OFFICE/OUTPA TIENT VISIT, EST [facility], [address] [place] [address], [address], [place] tel:[phone] [facility] Adult Medicine Varicella vaccine status (chief complaint) Body mass index (BMI) 28.0-28.9, adultEncounte r for screening, unspecifiedEn counter for test, result negativeVacci ne counseling 5 No Information [facility], [address] [place] [address], [address], [place] tel:[phone] [facility] Dental Encounter for dental exam and cleaning w/o abnormal findings 5 Aquiles Martinez. [facility], [id number] [address] [place] [address], [id number], [place]. tel:[phone] Referring Provider: Juan Kwan, [address] [id number] [address] [place] [address], [address] . tel:[phone] OFFICE/OUTPA TIENT VISIT, [facility], [address] [place] [address], [address], [place] tel:[phone] [facility] Adult Medicine immunization/ titers (chief complaint) Immunization due 5 No Information OFFICE/OUTPA TIENT VISIT, [facility], [address] [place] [address], [address], [place] tel:[phone] [facility] (chief complaint) ROUTINE ELECTROCARDIOGRAPH REPAIRER EXAMINATIONCl inical breast examContracep tive pill surveillance 4 No Information OFFICE/OUTPA TIENT VISIT, [facility], [address] [place] [address], [address], [place] tel:[phone] [facility] vaginal odor (chief complaint) VaginitisSTD SCREEN 4 No Information [facility], [address] [place] [address], [address], [place] tel:[phone] Conversion VAGINITIS AND VULVOVAGINITI S UNSPECIFIED 3 No Information [facility], [address] [place] [address], [address], [place] tel:[phone] Conversion CANDIDIASIS VAGINALSTD SCREEN 2 No Information [...] Vaccine Date Status Comments Tdap administered Source: [facility] [place] [facility] unization Record Payers Payer name Insurance type Covered alliance party ID Zandra robles(s) Slide[employer] [id number] [employer] [id number] Social History Type Description Quantity Date Captured [...] Illness PNR spotting initial Ob Ultrasound 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 Annual Exam Currently pregna nt: no. : [...] and was advised to follow up in [facility] states the pain has resovled right groin [...] rather than returning to otc COCs from [place] Irregular menses Last menstrual period was on [...] OCPs: triphasic levonorgesterl / ethinylestradiol (rx'd from [place]). Denies late / missed / doubling on [...] is and is using oral contraceptives from [place]. She is disatisfied with the weight gain. She is considering IUD placement. 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 [facility]. Varicella vaccine status Patient presents to the office to discuss her varicella vaccine status. She came to the office in July 2015 and had titier performed. She was under the impression she was in need of a varicella vaccine. Titers show that the patient is immune. 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 She states that she has other documentation from [place] stating she is immune to MMR. immunization/titers needs varice lla titer cdc office visit Pt here for obgyn hospitalist physician exam with [facility] program. No obgyn hospitalist physician complaints. Has been on a BCP x veral years. Rx is from [facility]. Does not know name. No problems. Light Periods. ROS neg. vaginal odor wants state std testing vaginal odor (comments) 33 yo here for vaginal odorLMP 03/21/14, just endedPt c/o vaginal odor since the end of the menses. Denies vaginal irritation, d/c, urination sx, lower abd pain, fever or chillsSA w 1 partner, denies DV. Using OCP daily from [place] without difficulties. Denies ACHESDenies PMHx, SMHx, blood clotting disease, smoking cigarettes, or hx of ELECTROCARDIOGRAPH REPAIRER/GI cancersDenies hx of STDs in the past Functional Status Date Functional Assessmen t Pain [...] pain or lumps. Related to Encntr for obgyn hospitalist physician exam (general) (routine) w/o abn findings o [...] (BMI) 28.0-28.9, adult [facility] e time each dayEncouraged condom use [...]
== END 2024-10-06 12:37 | disposition home or self-care (01) ==
PROVIDERS: PCP Internal Medicine; Visit Provider Internal Medicine
DX: E78.5 Hyperlipidemia, unspecified (principal); R14.3 Flatulence; R20.2 Paresthesia of skin; F41.9 Anxiety disorder, unspecified

== ENCOUNTER → 2024-10-06 11:02 | Outpatient (BNVA) | payer OTHER, SELFPAY | PROVIDERS: PCP Internal Medicine; Visit Provider Internal Medicine | DX: E78.5 Hyperlipidemia, unspecified (principal); R14.3 Flatulence; R20.2 Paresthesia of skin; F41.9 Anxiety disorder, unspecified | CPT/HCPCS: 96127; 99212 ==

== ENCOUNTER 2024-12-03 10:38 | Outpatient (REF) | payer OTHER, SELFPAY ==
--- OUTSIDE RECORDS SUMMARY | 2024-12-03 11:41 | XMS_ITS | Continuity of Care Document ---
Author Organization [facility], [facility] vices Address [address] [place] [address] Phone Care Team Providers Care Transportation Modeler Name Role Phone Unavailable Unavailable Unavailable Allergies, [...] Surface, Poste rior Treatment Plans [facility] OFF[facility]/OUTPATIENT VISIT, EST OFFICE/OUTPATIENT VISIT, EST Resin-Based Composite-One Surface, Poste rior Treatment Plan In Process [facility] OFF[facility]/OUTPATIENT VISIT, EST HEMOGLOBIN URINE TEST, BY VISUAL [facility] MPARISON OFFICE/OUTPATIENT VISIT, EST Resin-Based Composite-One Surface, Poste rior Treatment Plan In Process [facility] Comprehensive Oral Evaluation-New Or Est ablished [...] Preliminary ABSOLUTE NEUTROPHILS 16:00:00 6473 cells/ uL [phone] N Preliminary ABSOLUTE LYMPHOCYTES 16:00:00 1523 cells/ [...] N Preliminary REPORT COMMENT:FASTING :YESTest performed at [facility] [address],[place] [address]Tdnqq tor: SIDDHARTHA FISHER MD Panel Description: OBSTETRIC PANEL Preliminary RUBELLA ANTIBODY (IGG) 00:00:00 7.75 index N Preliminary Index Interpretation ----- <0.90 Not consistent with Immunity 0.90-0.99 Equivocal > or = 1.00 Consistent with Immunity The presence of rubella IgG antibody suggests immunization or past or current infection withrubella virus.Test performed at [facility] [place] [address],[place] [address]Lflfa tor: SIDDHARTHA FISHER MD Panel Description: HIV [...] purpose. For additional information please refer tohttp://educat ion.[email or web address]/faq/F AQ106(This link is being provided for informational/e ducational purposes only.) The performance of this assay has not been clinicallyvalid ated in patients less than 2 years old. REPORT COMMENT:FASTING :YESTest performed at [facility] [address],[place] [address]Dptvp tor: SIDDHARTHA FISHER MD Panel Description: OBSTETRIC PANEL Preliminary HEPATITIS B SURFACE ANTIGEN 00:00:00 NON-REACTIV E NON-REACTI VE N Preliminary Test performed at [facility] [address],[place] [address]Myutb tor: SIDDHARTHA FISHER MD Panel Description: OBSTETRIC [...] POSITIVE Preliminary REPORT COMMENT:FASTING :YESTest performed at [facility] [address],[place] [address]Gpvuj tor: SIDDHARTHA FISHER MD Panel Description: OBSTETRIC PANEL Final RPR (DX) W/REFL TITER AND CONFIRMATOR Y TESTING 13:00:00 NON-REACTIV E NON-REACTI VE N Final REPORT COMMENT:FASTING :YESTest performed at [facility] [address],[place] [address]Nwnjf tor: SIDDHARTHA FISHER MD Panel Description: SICKLE CE LL SCREEN W/REFL HEMOGLOBINOPATHY EVAL Final SICKLE CELL SCREEN 11:00:00 NEGATIVE NEGATIVE N Final Hemoglobin solubility testing alone is insufficientfor detecting or confirming the presence of sicklinghemoglo bins in some situations. Additional testingmay be required for diagnosis of hemoglobinopath ies.For more information on this test go to:http://educa tion.Revision3/faq/ [email or web address] REPORT COMMENT:FASTING :YESTest performed at [facility] [address],[place] [address]Eysqd tor: SIDDHARTHA FISHER MD Panel Description: CYSTIC [...] Detection Before After Negative Rate Test ResultAshkenazi Anabaptism 94% 1 in 24 1 in 400Non- 88% 1 in 25 1 in 208CaucasianHis panic-Brazilian 72% 1 in 46 1 in 164African-Amer ican 65% 1 in 65 1 in 186Asian-Americ an 49% 1 in 94 1 in 184Other insufficient data available MUTATIONS/P OLYMORPHISM S 10:00:00 see note Final G85E (c.254G>A ) R334W (c.1000C>T)394d elTT (c.262delTT) R347H (c.1040G>A)R117 H (c.350G>A) R347P (c.1040G>C)621+ 1 G>T (c.489+1G>T) A455E (c.1364C>A)711+ 1 G>T (c.579+1G>T) 1507del (c.1519delATC)1 078delT (c.948delT) U154jri (c.1521delCTT)V 520F (c.1558G>T) R553X (c.1657C>T)1717 -1 G>A (c.1585-1G>A) R560T (c.1679G>C)G542 X (c.1624G>T) 1898+1 G>A (c.1766+1G>A)S5 49N (c.1646G>A) 2183AA>G (c.2051delAAins G)S549R (c.1645A>C or c.1647T>G) 2184delA (c.2052delA)G55 1D (c.1652G>A) 2789+5 G>A (c.2657+5G>A)31 20+1 G>A (c.2988+1G>A) Y8655B (c.3846G>A)R116 2X (c.3484C>T) I9514T (c.3909C>G)3659 delC (c.3528delC)384 9+10kb C>T (C.3717+37619J> T)3876delA (c.3744delA)390 5insT (c.3773insT) This assay detects [...] REVIEWER 10:00:00 see note Final Ifeoma Sears, Ph.D.,[facility] ctor, Molecular Genetics Health care providers, please contact your local [facility]' genetic counselor or call [facility]() for assistance with interpretation ofthese results. The analytical performance characteristics of thisassay have been determined by [place]. The modificationsha ve not been cleared or approved by the FDA. Thisassay has been validated pursuant to the CLIAregulations and is used for clinical purposes. For additional information, please refer [email or web address] ion.Kixer.com/faq/c fscreen(This link is being provided for informational/e ducational purposes only.) REPORT COMMENT:FASTING :YESTest performed at [facility] [place] [address]Foxvh tor: RYLEY RIOS MD,PHD Panel Description: Varicella [...] VZV infection.REPOR T COMMENT:FASTING :YESTest performed at [facility] [address],[place] [address]Fojfj tor: SIDDHARTHA FISHER MD Panel Description: Hepatitis B virus surface Ab [Units/volume] in Serum or Plasma by Immunoassay Final HEPATITIS B SURFACE AB IMMUNITY, QN 00:00:00 66 mIU/mL > OR = 10 N Final PATIENT HAS IMMUNITY TO HEPATITIS B VIRUS.For additional information, please refer tohttp://educat ion.Kixer.com/faq/F AQ105(This link is being provided for informational/e ducational purposes only).REPORT COMMENT:FASTING :YESTest performed at [facility] [address],[place] [address]Nuenz tor: SIDDHARTHA FISHER MD Panel Description: DRUG [...] interpreting these drug results, please contact a [facility] Toxicology Specialist: [phone] ( ), M-F, 8am-6pm EST.Test performed at [facility] [place] [address],[place] [address]Xauee tor: SIDDHARTHA FISHER MD Panel Description: Bacteria identified in Urine by Culture Final CULTURE, URINE, ROUTINE 07:00:00 SEE NOTE Final CULTURE, URINE , ROUTINE MICRO NUMBER: [id number] TEST STATUS: FINAL SPECIMEN SOURCE: URINE SPECIMEN QUALITY: ADEQUATE RESULT: Multiple organisms present, each less than 10,000 CFU/mL. These organisms, commonly found on external and internal genitalia, are considered to be colonizers. No further testing performed.Test performed at [facility] [address],[place] [address]Omeuc tor: SIDDHARTHA FISHER MD Advance Directives Directive [...] Provider Providers Copied on Encounter VISIT - [facility], [address] [place], [address], [place] tel:[phone] [facility] PNR (chief complaint) Encounter for screening, unspecifiedSp otting complicating , first wmrdszekp78 weeks gestation of pregnancyEnco unter for supervision of other normal , first trimester No Information VISIT - [facility], [address] [place], [address], [place] tel:[phone] [facility] spotting (chief complaint) Body mass index (BMI) 30.0-30.9, adultEncounte r for screening, unspecifiedBl eeding in early vhrunnvjr66 weeks gestation of 7 Fiona Chandler. 500 [facility], [id number] [address] [place] [address], [address], [place]. tel: [phone] VISIT - [facility], [address] [place], [address], [place] tel:[phone] [facility] initial (chief complaint) 8 weeks gestation of pregnancyEnco unter for supervision of other normal , first trimester No Information [facility], [address] [place], [address], [place] tel:[phone] [facility] Ob Ultrasound (chief complaint) Encounter for screening 7 Arin Rouse. [address] [facility], [id number] [address] [place] [address], [address], [place]. tel: [phone] OFFICE/OUTPA TIENT VISIT, EST 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 [address] [facility], [id number] [address] [place] [address], [address], [place]. tel:[phone] [facility], [address] [place] [address], [address], [place] tel:[phone] [facility] Dental Encounter for dental exam and cleaning w/o abnormal findings Sundar Bonilla. [address] [facility], [id number] [address] [place] [address], [id number], [place]. tel:[phone] OFFICE/OUTPA TIENT VISIT, [facility], [address] [place] [address], [address], [place] tel:[phone] [facility] vaginal discharge/itc eva (chief complaint) Body mass index (BMI) 29.0-29.9, adultEncounte r for sexually transmitted disease screeningCand idal vulvovaginiti sOther specified noninflammato ry disorders of vaginaEncount er for screening for other viral diseases No Information OFFICE/OUTPA TIENT VISIT, [facility], [address] [place] [address], [address], [place] tel:[phone] [facility] Follow Up of contraception (chief complaint) Body mass index (BMI) 28.0-28.9, adultEncounte r for test, result negativeEncou nter for surveillance of contraceptive pills No Information [facility], [address] [place] [address], [address], [place] tel:[phone] [facility] Dental Encounter for dental exam and cleaning w/o abnormal findings 6 Aquiles Martinez. [address], [id number] [address] [place] [address], [id number], [place]. tel:[phone] [facility], [address] [place] [address], [address], [place] tel:[phone] [facility] Dental Dental caries on pit and fissure surfc penetrat into dentin 6 No Information OFFICE/OUTPA TIENT VISIT, [facility], [address] [place] [address], [address], [place] tel:[phone] [facility] BP check while on COCs (chief complaint) Encounter for other general counseling on contraception No Information OFFICE/OUTPA TIENT VISIT, [facility], [address] [place] [address], [address], [place] tel:[phone] [facility] Adult Medicine right groin pain (chief complaint) Encounter for screening, unspecifiedRi ght groin pain No Information [facility], [address] [place] [address], [address], [place] tel:[phone] [facility] Dental Encounter for dental exam and cleaning w/o abnormal findings Aliyah Ravi. [facility], [id number] [address] [place] [address], [id number], [place]. tel:[phone] Referring Provider: Breonna Ly, [address] [id number] [address] [place] [address], [id number] . tel:[phone] OFFICE/OUTPA TIENT VISIT, [facility], [address] [place] [address], [address], [place] tel:[phone] [facility] follow up (chief complaint) Encounter for other general counseling on contraception 6 No Information OFFICE/OUTPA TIENT VISIT, [facility], [address] [place], [address], [place] tel:[phone] [facility] Irregular menses (chief complaint)Adj ust OCPs (chief complaint) Encounter for screening, unspecifiedEn counter for test, result negativeAbnor mal uterine bleeding 6 No Information [facility], [address] [place] [address], [address], [place] tel:[phone] [facility] Dental Encounter for dental exam and cleaning w/o abnormal findings 6 Aliyah Ravi. [facility], [id number] [address] [place] [address], [id number], [place]. [phone] Referring Provider: Breonna Ly, [facility] [id number], [place], [address] . tel:[phone] [facility], [address] [place] [address], [address], [place] tel:[phone] [facility] Dental Encounter for dental exam and cleaning w/o abnormal findings 6 Aliyah Ravi. [facility] [place], [id number] [address] [place] [address], [id number], [place]. [phone] Referring Provider: Breonna Ly, [address] [place] [id number] [facility], [place], [address] . tel:[phone] PREV VISIT, [facility], AGE 18-39 [facility], [address] [place] [address], [address], [place] tel:[phone] [facility] Adult Medicine Establish Care (chief complaint) Body mass index (BMI) 28.0-28.9, adultRoutine physical examination 6 No Information OFFICE/OUTPA TIENT VISIT, EST [facility], [address] [place] [address], [address], [place] tel:[phone] [facility] Adult Medicine Varicella vaccine status (chief complaint) Body mass index (BMI) 28.0-28.9, adultEncounte r for screening, unspecifiedEn counter for test, result negativeVacci ne counseling 5 No Information [facility], [address] [place] [address], [address], [place] tel:[phone] [facility] Dental Encounter for dental exam and cleaning w/o abnormal findings 5 Aquiles Martinez. Ping [facility], [id number] [address] [place] [address], [id number], [place]. tel:[phone] Referring Provider: Juan Kwan, [address] [id number] [address] [place] [address], [id number] . tel:[phone] OFFICE/OUTPA TIENT VISIT, [facility], [address] [place] [address], [address], [place] tel:[phone] [facility] Adult Medicine immunization/ titers (chief complaint) Immunization due 5 No Information OFFICE/OUTPA TIENT VISIT, [facility], [address] [place] [address], [address], [place] tel:[phone] [facility] (chief complaint) ROUTINE MAINTENANCE TECHNICIAN EXAMINATIONCl inical breast examContracep tive pill surveillance 4 No Information OFFICE/OUTPA TIENT VISIT, [facility], [address] [place] [address], [address], [place] tel:[phone] [facility] vaginal odor (chief complaint) VaginitisSTD SCREEN 4 No Information [facility], [address] [place] [address], [address], [place] tel:[phone] Conversion VAGINITIS AND VULVOVAGINITI S UNSPECIFIED 3 No Information [facility], [address] [place] [address], [address], [place] tel:[phone] Conversion CANDIDIASIS VAGINALSTD SCREEN 2 No Information [...] Vaccine Date Status Comments Tdap administered Source: [facility] unization Record Payers Payer name Insurance type Covered libertarian ID Zanrda robles(s) SlideA [id number] [employer] [id number] Social History Type Description Quantity Date Captured [...] 06/07/17 currently 4.4 wks with tamiko 03/14/18. 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 Denies late / missed / doubling on pills. 01/09/16: Cbc, tsh, hgA1c normal from [facility]. Establish Care Patient presents to office to establish care with a PCP. She denies any history of chronic medical conditions. She does not have any complaints today.Surgical: NoneSocial: Does not smoke, drink nor use drugs. She is and is using oral contraceptives from [facility]. She is disatisfied with the weight gain. She is considering IUD placement. Family: Father with HTN, prostate CA; mother of ectopic pregnancyPrevention: Needs updated Tdap, needs eye exam and MAINTENANCE TECHNICIAN exam. UTD dental. Varicella vaccine status Patient presents to the office to discuss her varicella vaccine status. She came to the office in July 2015 and had titier performed. She was under the impression she was in need of a varicella vaccine. Titers show that the patient is immune. 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 She states that she has other documentation from [facility] stating she is immune to MMR. 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 No laundry clerk complaints. Has been on a BCP x veral years. Rx is from [facility]. Does not know name. No problems. Light Periods. ROS neg. vaginal odor wants state std testing vaginal odor (comments) 33 yo here for vaginal odorLMP 03/21/14, just endedPt c/o vaginal odor since the end of the menses. Denies vaginal irritation, d/c, urination sx, lower abd pain, fever or chillsSA w 1 partner, denies DV. Using OCP daily from [facility] without difficulties. Denies ACHESDenies PMHx, SMHx, blood clotting disease, smoking cigarettes, or hx of MAINTENANCE TECHNICIAN/GI cancersDenies hx of STDs in the past Functional Status Date Functional Assessmen t Pain Score 0/10 Instructions Date Instruction Additional Infor yossi Dietary management e ducation, guidance, and counseling Related to Body mass index (BMI) 30.0-30.9, adult risk factors identif ied by history anticipated [...] smoking counseling domestic violence seat belt use HIV and other routine t ests Intermittent pelvic pain x 1 week, R [...] pain or lumps. 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
--- OUTSIDE RECORDS SUMMARY | 2024-12-03 11:41 | XMS_ITS | Clinical Summary ---
Author Organization [facility] ity Address [address] [place] [address] Care Team Providers Care Cashier Self Service Gasoline Name Role Phone Unavailable Primary Care Provider Unavailabl e Social History Tobacco Use Types Packs/Day Years Used Date Smoking Tobacco: Never Assessed Sex and Gender Information Value Date Recorded Sex Assigned at Not on file Gender Identity Not on file Sexual Orientation Not on file Plan of Treatment Health Maintenance Due Date Last Done Comments Breast Cancer Screening 1980 Hepatitis B Vaccines (1 of 3 - 19+ 3-dose series) 1999 Cervical Cancer Screening: P ap Smear 2001 Depression Screening 09/29/2022 HIV Screening 09/29/2022 Hepatitis C Screening 09/29/2022 Social Influencers of Health Screening 09/29/2022 COVID-19 Vaccine ( - 2023-2 5 season) 2024 Influenza Vaccine (#1) 2024 DTaP,Tdap,and Td Vaccines (2 - Td or Tdap) 06/21/2030 06/21/2020 HIB Vaccines Aged Out No longer eligi ble based on patient's age to complete this topic HPV Vaccines Aged Out No longer eligi ble based on patient's age to complete this topic Hepatitis A Vaccines Aged Out No long er eligible based on patient's age to complete this topic IPV Vaccines Aged Out No longer eligi ble based on patient's age to complete this topic MMR Vaccines Aged Out No longer eligi ble based on patient's age to complete this topic Meningococcal ACWY Vaccine Aged Out N o longer eligible based on patient's age to complete this topic Pneumococcal Vaccine: Pediat rics (0 to 5 Years) and At-Risk Patients (6 to 64 Years) Aged Out No longer eligi ble based on patient's age to complete this topic RSV Immunization Patients Un tonia 20 months Aged Out No longer eligible b ased on patient's age to complete this topic Varicella Vaccines Aged Out No longer eligible based on patient's age to complete this topic
--- OUTSIDE RECORDS SUMMARY | 2024-12-03 11:41 | XMS_ITS | Clinical Summary ---
Author Organization [facility] Address [address] [place] [address] Care Team Providers Care Cement Loader Name Role Phone Pcp, No Primary Care Provider Unavailabl e Allergies No known active allergies Medications Medication Sig Dispensed Refills Start Date End Date Status acetaminophen (TYLENOL) 500 MG tablet Take 1 tablet (500 mg total) by mouth 4 times daily (every 6 hours) as needed for mild pain (pain). 20 tablet 04/22/2020 Active Immunizations Name Administration Dates Next Due Covid-19 MRNA Vaccine - Pfizer 12+ (Purple Cap) 06/04/2021,05/14/2021 Social History Tobacco Use Types Packs/Day Years Used Date Smoking Tobacco: Never Smokeless Tobacco: Never Alcohol Use Standard Drinks/Week Comments Not Currently 0 (1 standard drink = 0.6 oz pur e alcohol) Sex and Gender Information Value Date Recorded Sex Assigned at Not on file Gender Identity Not on file Sexual Orientation Not on file Last Filed Vital Signs Vital Sign Reading Time Taken Comments Blood Pressure 118/68 04/22/2020 5:03 PM EDT Pulse 72 04/22/2020 5:03 PM EDT Temperature 35.8 ??C (96.5 ??F) 04/22/2020 5:03 PM ED T Respiratory Rate 17 04/22/2020 5:03 PM EDT Oxygen Saturation 100% 04/22/2020 5:03 PM EDT Inhaled Oxygen Concentration - - Weight - - Height - - Body Mass Index - - Plan of Treatment Health Maintenance Due Date Last Done Comments Hepatitis C Virus Screening 1980 HIV Screening 1993 DTaP/Tdap/Td Vaccines (1 - Tdap) 1999 Hepatitis B Vaccines (1 of 3 - 19+ 3-dose series) 1999 Pap Smear (Ages 21-65) 2001 Mammogram 2020 Influenza Vaccine 05/27/2024 COVID-19 Vaccine (3 - 2023-2 5 season) 2024 06/04/2021, 05/14/2021 HPV Vaccines Aged Out No longer eligi ble based on patient's age to complete this topic Pneumococcal Vaccine: Pediatric (0-5 Years) and At-Risk Patients (6 to 49 Years) Aged Out No longer eligible b ased on patient's age to complete this topic Care Teams Cement Loader Relationship Specialty Start Date End Date Pcp, No PCP - General General Medicine 08/02/19
--- OUTSIDE RECORDS SUMMARY | 2024-12-03 11:41 | XMS_ITS | Encounter Summary ---
Author Organization [facility] Address [address] [place] [address] Care Team Providers Care Mri Supervisor Name Role Phone Pcp, No Primary Care Provider Unavailabl e Encounter Details Date Type Department Care Team (Late st Contact Info) Description 10/31/2020 Lab Requisition EM [facility] [address] [place] [phone] Dash López MD [address] [place] [id number] Encounter for laboratory testing for COVID-19 virus Social History Tobacco Use Types Packs/Day Years Used Date Smoking Tobacco: Never Smokeless Tobacco: Never Alcohol Use Standard Drinks/Week Comments Not Currently 0 (1 standard drink = 0.6 oz pur e alcohol) Sex and Gender Information Value Date Recorded Sex Assigned at Not on file Gender Identity Not on file Sexual Orientation Not on file documented as of this encounter Plan of Treatment Not on file documented as of this encounter Procedures Procedure Name Priority Date/Time Associated Diagnosis Comments COVID-19 RT-PCR ([employer]) Routine 10/31/2020 6:58 AM EST Encounter for laboratory testing for COVID-19 virus [ICD-10-CM] documented in this encounter Results * (ABNORMAL) COVID-19 RT-PCR ([facility]) (10/31/2020 6:58 AM EST) COVID-19 RT-PCR POSITIVE SARS-COV-2( A) Not Detected 11/01/2020 10:31 AM EST [facility] LAB[facility] Comment: ADDITIONAL INFORMATION The JEANNETTE COVID-19 RT-PCR Assay is Real-Time Reverse Predatory Animal Exterminator Polymerase Chain Reaction (machine sand mixer-PCR) for the in vitro qualitative detection of three SARS-Cov-2 target sequences unique to the coronavirus disease 2019 (COVID-19). This is an Emergency Use Authorization (EUA) in vitro diagnostic (IVD) test that has been modified to include the Creditera automated liquid handler. Its analytical performance characteristics have been determined by the plaster machine tender and verified by [facility] in a manner consistent with CLIA requirements. This test may be used for clinical purposes and should not be regarded as purely investigational or for research use only. This laboratory is certified under the Clinical Laboratory Improvement Amendments of 1988 (CLIA) as qualified to perform high complexity clinical testing. Reference interval for this testing is SARS-CoV-2 Not Detected. Fact sheets for this Emergency Use Authorization assay can be found at the following links: For Healthcare Providers: https://www.fda.gov/media/810639/download For Patients: https://www.fda.gov/media/126734/download TEST LIMITATIONS Positive results are indicative of the presence of SARS-CoV-2 RNA; clinical correlation with patient history and other diagnostic information is necessary to determine patient infection status. Positive results do not rule out bacterial infection or co-infection with other viruses. The agent detected may not be the definite cause of disease. Negative results do not exclude SARS-CoV-2 infection and should not be used as the sole basis for patient management decisions. Negative results must be combined with clinical observations, patient history, and epidemiological information. Improper sample collection, transport or storage may impede the ability of the assay to detect target sequences. Inconclusive specimens are not repeated, and recollection and submission of a new sample is recommended. The performance of the TaqPath COVID-19 Combo Kit was established using nasopharyngeal swab, nasopharyngeal aspirate, and bronchoalveolar lavage (BAL) specimens. The limit of detection for the assay was determined to be 0.75copies/uL in the specimens of nasopharyngeal swab. Other specimen types may be need for further validation before testing on this system. For further details refer to the Booster Pack TaqPath COVID-19 Combo Kit EUA submission (https://www.[employer].gov/media/637373/download). ----- Test performed by [facility], [address] [place] [address] CLIA# [id number] ?[id number] ? Demario Landeros M.D., Ph.D., [facility], Clinical Flight Engineer Instructor Microbiology Nasopharyngeal swab / Unknown 10/31/2020 6:58 AM EST 10/31/2020 6:58 AM EST Narrative [facility] - 11/01/2020 10:31 AM EST Performed at [facility], [address], [place], [place] [address], CLIA [id number] Dash López MD MICROBIOLOGY - GENER AL ORDERABLES [address] [address] documented in this encounter Visit Diagnoses Diagnosis Encounter for laboratory testing for COVID-19 virus documented in this encounter Care Teams Mri Supervisor Relationship Specialty Start Date End Date Pcp, No PCP - General General Medicine 08/02/19 documented as of this encounter
[2024-12-03 14:02] LABS: Cholesterol 197 mg/dL (<200); HDL Cholesterol 47 mg/dL (>40); LDL Cholesterol Calculated 134 mg/dL (<100); Triglycerides 84 mg/dL (<150)
== END 2024-12-03 10:39 | disposition home or self-care (01) ==
LOC: HO.HMGCLDS 10:38
PROVIDERS: PCP Internal Medicine; Visit Provider Internal Medicine
DX: E78.5 Hyperlipidemia, unspecified (principal)
CPT/HCPCS: 36415; 80061

== ENCOUNTER 2024-12-07 11:32 | Outpatient (AMB) | payer OTHER, SELFPAY ==
--- NOTE | 2024-12-07 11:57 | MHC.PC.OV ---
Vital Signs 12/07/24 11:58 Height 5 ft 4 in Weight 180 lb BMI 30.9 BP 118/74 Blood Pressure Location Lt brachial Position Sitting Respiration 18 Pulse 72 Pulse Source Pulse Oximeter Temp 98.8 F Temp Source Oral Pulse Oximetry (%) 97 Intake Visit Reasons: Annual PE Intake Note: Pt is here today for PE. Allergies No Known Allergies Allergy (Verified 12/07/24 11:58) Medication List - Last Reconciled 12/07/24 by Natasha Jim MD No Known Home Meds Tobacco use date assessed: 12/07/24 Dental Screening Dental Screen Date: 12/07/24 Did you have a dental visit in the last 12 months?: Yes Did you have a dental problem in the last 6 months where you did not have access to dental care?: No Was dental information given to patient?: Patient has dentist HPI Annual PE HPI Details Pt presents for PE. 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 1. Little interest or pleasure in doing things: not at all 2. Feeling down, depressed, or hopeless: not at all 3. Trouble falling or staying asleep, or sleeping too much: not at all 4. Feeling tired or having little energy: not at all 5. Poor appetite or overeating: not at all 6. Feeling bad about yourself - or that you are a failure or have let yourself or your family down: not at all 7. Trouble concentrating on things, such as reading the newspaper or watching television: not at all 8. Moving or speaking so slowly that other people could have noticed. Or the opposite - being so fidgety or restless that you have been moving around a lot more than usual: not at all 9. Thoughts that you would be better off or of hurting yourself in some way: not at all Total score: 0 Depression Screening Interpretation: Negative Depression Screening Done: Yes 59417 - PHQ-9 Billing: Yes Source: Developed by Drs. Kj Hoang, Geraldine Kwan, Rai Chowdhury and colleagues, with an educational venkat from [employer]. Thrive Questionnaire Date Thrive assessed: 12/07/24 I am a: Patient What is your living situation today?: I have a steady place to live Within the past 12 months, did the food you bought not last and you didn't have the money to get more?: Never true Within the past 12 months, did you worry whether your food would run out before you got money to buy more?: Never true Do you have trouble paying for medicines?: No Do you have trouble getting transportation to medical appointments?: No Do you have trouble paying your heating and electricity bill?: No Do you have trouble taking care of your child, family member or friend?: No Do you have trouble with day-to-day activities such as bathing, preparing meals, shopping, managing finances, etc.?: No Are you currently unemployed and looking for a job?: No Are you interested in more education?: No Please select the resources that you would like help with: None Currently or been in a relationship where the following occur: No concerns reported THRIVE Score: 0 AUDIT C Alcohol Use Questionnaire (AUDIT-C) 1. How often do you have a drink containing alcohol?: Monthly or less 2. How many drinks containing alcohol do you have on a typical day when you are drinking?: 1 or 2 3. How often do you have six or more drinks on one occasion?: Never Total Score: 1 ELDA-7 AMB Questionnaire ELDA-7 Date ELDA - 7 assessed: 12/07/24 Feeling nervous, anxious, or on edge: 0 = Not at all Not being able to stop or control worryin = Not at all Worrying too much about different things: 0 = Not at all Trouble relaxin = Not at all Being so restless that it is hard to sit still: 0 = Not at all Becoming easily annoyed or irritable: 0 = Not at all Feeling afraid as if something awful might happen: 0 = Not at all Total ELDA-7 score (0-4 normal; 5-9 mild; 10-14 moderate; 15-21 severe): 0 Source: Developed by Drs. Kj Hoang, Geraldine Kwan, Rai Chowdhury and colleagues, with an educational venkat from [employer]. ELDA-7 Assessment Billing ELDA-7 Assessment Tool: ELDA-7 Assessment 22585 Review of Systems Const All systems reviewed & are unremarkable except as noted in HPI and below Eyes Reports no additional complaints ENT Reports no additional complaints Card Reports no additional complaints Resp Reports no additional complaints GI Reports no additional complaints Reports no additional complaints Musc Reports no additional complaints Physical exam (Primary Care) Vital Signs: Last Vital Signs Temp 98.8 F 12/07/24 11:58 Pulse 72 12/07/24 11:58 Resp 18 12/07/24 11:58 BP 118/74 12/07/24 11:58 Pulse Ox 97 12/07/24 11:58 BMI result Body Mass Index 30.9 Tobacco/Smoking Status: Tobacco use Status Tobacco use date assessed 12/07/24 12/07/24 12:02 Patient Tobacco Use Status Never used Tobacco 12/07/24 12:02 e-Cigarette/Vaping Use Never Used 12/07/24 12:02 PHQ-9: PHQ-9 Score PHQ-9: Total score 0 12/07/24 12:02 Depression Screening Interpretation: Negative Thrive Assessment: Date of Thrive Assessment Date Thrive assessed 12/07/24 12/07/24 12:02 Currently or been in a relationship where the following occur: No concerns reported Const General: no acute distress HENMT Head: Yes normal to inspection Ears: hearing grossly normal bilaterally Coding Level of Care Code Est Pt Prev Care 40-64y(13099) Diagnoses Hyperlipidemia E78.5 Annual physical exam Z00.00 Additional Codes ELDA-7 Assessment Billing - ELDA-7 Assessment Tool: ELDA-7 Assessment 85332 ([id number]) PHQ-9 - 30770 - PHQ-9 Billing: Yes ([id number]) Assessment & Plan Assessment & Plan (1) Hyperlipidemia: Code(s): E78.5 - Hyperlipidemia, unspecified Category: Medical Plan: CONTINUE LOW-CHOLESTEROL DIET (2) Annual physical exam: Code(s): Z00.00 - Encounter for general adult medical examination without abnormal findings Category: Medical Plan: Well-balanced diet regular physical activity discussed with the patient she is up-to-date with the Pap smear and 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 Panel Fast 1 Year E78.5 - Hyperlipidemia, unspecified, Z00.00 - Encounter for general adult medical examination without abnormal findings Complete Blood Count Auto Diff 1 Year E78.5 - Hyperlipidemia, unspecified, Z00.00 - Encounter for general adult medical examination without abnormal findings TSH reflex Free T4 1 Year E78.5 - Hyperlipidemia, unspecified, Z00.00 - Encounter for general adult medical examination without abnormal findings UA w Microscopic 1 Year E78.5 - Hyperlipidemia, unspecified, Z00.00 - Encounter for general adult medical examination without abnormal findings
[2024-12-07 11:58] VITALS: BP 118/74; PULSE 72; RESP 18; TEMP 37.1; O2SAT 97; BMI 30.9
== END 2024-12-07 14:51 | disposition home or self-care (01) ==
PROVIDERS: PCP Internal Medicine; Visit Provider Internal Medicine
DX: E78.5 Hyperlipidemia, unspecified (principal); Z00.00 Encounter for general adult medical examination without abnormal findings

== ENCOUNTER → 2024-12-07 11:32 | Outpatient (BNVA) | payer OTHER, SELFPAY | PROVIDERS: PCP Internal Medicine; Visit Provider Internal Medicine | DX: Z00.00 Encounter for general adult medical examination without abnormal findings (principal); E78.5 Hyperlipidemia, unspecified | CPT/HCPCS: 96127 ==

== ENCOUNTER 2024-12-10 09:18 | Outpatient (AMB) | payer OTHER, SELFPAY ==
[2024-12-10 09:19] VITALS: BP 120/80; PULSE 67; O2SAT 95; BMI 31.2
--- NOTE | 2024-12-10 09:19 | A.OFFVIS_ITS ---
Vital Signs 3 12/10/24 09:19 Height 5 ft 4 in Weight 181 lb 14.102 oz BMI 31.2 BP 120/80 Blood Pressure Location Lt brachial Position Sitting Pulse 67 Pulse Source Pulse Oximeter Pulse Oximetry (%) 95 Oxygen Delivery Method Room Air Intake Visit Reasons: F/U thyroid nodule post-US Intake Note: Patient present today for thyroid nodule post-US follow up visit. Senior Air Director Required: No Accompanied by: Self / Same As Patient Allergies No Known Allergies Allergy (Verified 12/10/24 09:23) Medication List - Last Reconciled 12/10/24 by Carly Lucas MD No Known Home Meds HPI Comments Details: 44 YO F with PMHx a MNG who is seen in F/U. HPI from prior visit Was initially diagnosed with multinodular thyroid in 2020 with thyroid US revealing multiple bilatera thyroid nodules. This was completed after her PCP palpated a goiter during her exam. She presented 05/09/2022 at which time she was noted to have edema of the carotid artery, so FNA biposy was not completed and she was rescheduled for this. She then represented 06/21/2022 and underwent IR guided FNA of her RMP 1.4 cm thyroid nodule. Cytology revealed atypia of undetermined significance (bethesda category III), affirma was benign. Denies any history of head or neck irradiation. Denies any family history of thyroid cancer. Aunt had substernal goiter? . Interval history Pain on the right side of her neck, feels like a cramp, once a week, last for a minute or two, goes away by itself. No trouble swallowing, no changes to voice Denies any palpitations, Gained weight, lmp : every month. Endorses tremors. . Denies any ocular complaints, blurred or double vision. Most recent thyroid ultrasound from February 2024, showed subcentimeter left-sided nodules which have remained stable in size, and showed the right inferior 1.7 cm dominant nodule which is slightly increased in size only in 1 dimension, at this time we will continue to monitor. Given this nodule has been biopsied before in 2021 with benign Afirma results, and has remained stable over these last 2 years, we will plan to repeat a thyroid ultrasound in 1 year from now. Physical exam General: sitting comfortably in no acute distress HEENT: normocephalic/atraumatic Neck: supple, palpable 1 cm right-sided nodule Cardiac: normal heart sounds Pulm: normal breath sounds B/L, no added breath sounds Abd: not distended, no tenderness Extremities: no edema, no signs of myxedema Laboratory Tests 05/06/23 12/04/23 08/04/24 15:07 09:18 15:07 TSH 0.90 0.48 0.40 US THYROID 03/25/24 CLINICAL INFORMATION: Nontoxic multinodular goiter. COMPARISON: Thyroid ultrasound 04/24/2023. Ultrasound-guided fine-needle aspiration 06/21/2022 and 05/09/2022. Thyroid ultrasound 04/20/2021. TECHNIQUE: Linear transducer grayscale and color Doppler examination with attention to the region of the thyroid. FINDINGS: SIZE: Measurements of the thyroid lobes and nodules are given in sagittal, anteroposterior and transverse dimensions respectively. Right Thyroid Lobe: 5.0 x 1.5 x 1.8 cm, volume 7.0 mL. Previously 4.9 x 1.5 x 2.1 cm, volume 7.8 mL. Parenchyma: The gland echotexture is homogeneous. Thyroid vascularity is normal. Left Thyroid Lobe: 4.8 x 1.3 x 1.9 cm, volume 6.2 mL. Previously 4.9 x 1.4 x 2.0 cm, volume 6.9 mL. Parenchyma: The gland echotexture is homogeneous. Thyroid vascularity is normal. Isthmus: 0.41 cm in maximum AP dimension. Previously 0.40 cm. Estimated total number of nodules greater than or equal to 1 cm: 1. Commodity Specialist nodules are described as follows: 1. Location: Left inferior. Size: 0.83 x 0.50 x 0.74 cm, volume 0.16 mL. Previously: 0.9 x 0.5 x 0.9 cm, volume 0.12 mL. Nodule characteristics: Composition: Mixed cystic and solid (1). Echogenicity: Hypoechoic (2). Shape: Not taller than wide (0). Margins: Smooth (0). Echogenic Foci: None (0). ACR TI-RADS total points: 3. Previous: 0. ACR TI-RADS category: 3. Previous: 1. Significant change in size (>/= 20% in 2 dimensions and minimal increase of 2 mm or 50% or greater increase in volume): No Change in features: Yes Change in ACR TI-RADS risk category: Yes 2. Location: Left inferior. Size: 0.32 x 0.23 x 0.33 cm, volume 0.021 mL. Previously: 0.7 x 0.4 x 0.6 cm, volume 0.09 mL. Nodule characteristics: Composition: Mixed cystic and solid (1). Echogenicity: Cannot be determined (1). Shape: Not taller than wide (0). Margins: Smooth (0). Echogenic Foci: None (0). ACR TI-RADS total points: 2. Previous: 2. ACR TI-RADS category: 2. Previous: 2. Significant change in size (>/= 20% in 2 dimensions and minimal increase of 2 mm or 50% or greater increase in volume): No Change in features: No Change in ACR TI-RADS risk category: No 3. Location: Left inferior. Size: 0.3 x 0.23 x 0.33 cm, volume 0.03 mL. Previously: 0.4 x 0.3 x 0.4 cm, volume 0.5 mL. Nodule characteristics: Composition: Mixed cystic and solid (1). Echogenicity: Cannot be determined (1). Shape: Not taller than wide (0). Margins: Smooth (0). Echogenic Foci: None (0). ACR TI-RADS total points: 2. Previous: 2. ACR TI-RADS category: 2. Previous: 2. Significant change in size (>/= 20% in 2 dimensions and minimal increase of 2 mm or 50% or greater increase in volume): No Change in features: No Change in ACR TI-RADS risk category: No 4. Location: Right inferior. Size: 1.7 x 1.1 x 1.1 cm, volume 1.1 mL. Previously: 1.2 x 1.1 x 1.1 cm, volume 0.08 mL. Nodule characteristics: Composition: Mixed cystic and solid (1). Echogenicity: Cannot be determined (1). Shape: Not taller than wide (0). Margins: Lobulated (2). Echogenic Foci: Macrocalcifications (1). ACR TI-RADS total points: 5. Previous: 5. ACR TI-RADS category: 4. Previous: 4. Significant change in size (>/= 20% in 2 dimensions and minimal increase of 2 mm or 50% or greater increase in volume): Yes Change in features: No Change in ACR TI-RADS risk category: No NODES: No lymphadenopathy is seen in the tissue surrounding the thyroid gland. US/US thyroid IMPRESSION: Right 1.7 cm TR4 thyroid nodule meets criteria for biopsy. Fine-needle aspiration recommended. This study was presented today 05/03/2024 for interpretation. Stat results provided at this time as requested by referring provider. Thyroid US: 04/20/21 Right Thyroid Lobe: 5.1 x 1.8 x 1.9 cm, volume 9.1 mL. Parenchyma: The gland echotexture is homogeneous. Thyroid vascularity is normal. Left Thyroid Lobe: 4.7 x 1.1 x 2.1 cm, volume 5.7 mL. Parenchyma: The gland echotexture is homogeneous. Thyroid vascularity is normal. Isthmus: 3 cm in maximum AP dimension. Estimated total number of nodules greater than or equal to 1 cm: 1. Commodity Specialist nodules are described as follows: 1. Location: Left inferior. ?? ? Size: 0.8 x 0.4 x 0.7 cm, volume 0.15 mL. ?? ? Nodule characteristics: ?? ? Composition: Cystic(0). ?? ? ACR TI-RADS total points: 0 ?? ? ACR TI-RADS category: 1 2. Location: Left inferior. ?? ? Size: 0.5 x 0.3 x 0.4 cm, volume 0.03 mL. ?? ? Nodule characteristics: ?? ? Composition: Mixed cystic and solid (1). ?? ? Echogenicity: Cannot be determined (1). ?? ? Shape: Not taller than wide (0). ?? ? Margins: Smooth (0). ?? ? Echogenic Foci: None (0). ?? ? ACR TI-RADS total points: 2 ?? ? ACR TI-RADS category: 2 3. Location: Left inferior. ?? ? Size: 0.4 x 0.2 x 0.3 cm, volume 0.01 mL. ?? ? Nodule characteristics: ?? ? Composition: Cystic(0). ?? ? ACR TI-RADS total points: 0 ?? ? ACR TI-RADS category: 1 4. Location: Right inferior. ?? ? Size: 2.5 x 1.5 x 1.6 cm, volume 4.02 mL. ?? ? Nodule characteristics: ?? ? Composition: Mixed cystic and solid (1). ?? ? Echogenicity: Very hypoechoic (3). ?? ? Shape: Taller than wide (3). ?? ? Margins: Smooth (0). ?? ? Echogenic Foci: Peripheral calcifications (2). ?? ? ACR TI-RADS total points: 9 ?? ? ACR TI-RADS category: 5 NODES: No lymphadenopathy is seen in the tissue surrounding the thyroid gland. 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, 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 Alcohol intake: never Patient Tobacco Use Status: Never used Tobacco e-Cigarette/Vaping Use: Never Used service: No Current occupational status: employed Cognitive needs: No Hearing needs: No Vision needs: No Physical Exam Vital Signs: Last Vital Signs Pulse 67 12/10/24 09:19 BP 120/80 12/10/24 09:19 Pulse Ox 95 12/10/24 09:19 Oxygen Delivery Method Room Air 12/10/24 09:19 BMI result Body Mass Index 31.2 Assessment & Plan Assessment & Plan (1) Multinodular thyroid: Code(s): E04.2 - Nontoxic multinodular goiter Category: Medical Plan: 44-year-old female with no family history of thyroid cancer with no personal history of head or neck radiation who is coming in today for multinodular goiter follow up. Diagnosed in 2020, she has a right inferior lobe dominant nodule which was biopsied in 2021 which came back as AUS, [place] category 3 with benign Afirma. This nodule has remained stable in size on thyroid ultrasounds done in 2022, 2023.Most recent thyroid ultrasound from February 2024, showed subcentimeter left- sided nodules which have remained stable in size, and showed the right inferior 1.7 cm dominant nodule which is slightly increased in size only in 1 dimension, at this time we will continue to monitor. Given this nodule has been biopsied before in 2021 with benign Afirma results, and has remained stable over these last 2 years, we will plan to repeat a thyroid ultrasound in 1 year from now. Given that she is having some degree of symptoms, we will do a TSH with a reflex free T4 now. Her thyroid function has remained stable over the past few years. Plan: -ordered TSH with a reflex free T4. -ordered thyroid ultrasound for November 2025 -follow up in 1 year Plan See above Orders: Orders 2 Thyroid Stimulating Hormone Today E04.2 - Nontoxic multinodular goiter US thyroid 1 Year E04.2 - Nontoxic multinodular goiter Free T4 (Free Thyroxine) Today E04.2 - Nontoxic multinodular goiter Patient Instructions: Do blood work today Do thyroid ultrasound in 1 year , someone will call you to schedule this, please make sure you schedule it a few weeks prior to you follow up with me in 1 year Coding Level of Care Code Est Pt Level 3 (20081) Diagnoses Multinodular thyroid E04.2
--- OUTSIDE RECORDS SUMMARY | 2024-12-10 09:41 | XMS_ITS | Continuity of Care Document ---
Author Organization [facility] vices Address [address] [place] [address] Phone Care Team Providers Care Snow Plow Operator Name Role Phone Unavailable Unavailable Unavailable Allergies, [...] Surface, Poste rior [facility] Plans [facility] OFF[facility]/OUTPATIENT VISIT, EST OFFICE/OUTPATIENT VISIT, EST Resin-Based Composite-One Surface, Poste rior Treatment Plan In Process [facility] OFF[facility]/OUTPATIENT VISIT, EST HEMOGLOBIN URINE TEST, BY VISUAL COLOR CO MPARISON OFFICE/OUTPATIENT VISIT, EST Resin-Based Composite-One Surface, Poste rior Treatment Plan In Process [facility] Comprehensive Oral Evaluation-New Or Est [...] Preliminary ABSOLUTE NEUTROPHILS 16:00:00 6473 cells/ uL [id number] N Preliminary ABSOLUTE LYMPHOCYTES 16:00:00 1523 cells/ [...] N Preliminary REPORT COMMENT:FASTING :YESTest performed at [facility] [address],[place] [address]Boxqd tor: SIDDHARTHA FISHER MD Panel Description: OBSTETRIC PANEL Preliminary RUBELLA ANTIBODY (IGG) 00:00:00 7.75 index N Preliminary Index Interpretation ----- <0.90 Not consistent with Immunity 0.90-0.99 Equivocal > or = 1.00 Consistent with Immunity The presence of rubella IgG antibody suggests immunization or past or current infection withrubella virus.Test performed at [facility] [place] [address],[place] [address]Vqymb tor: SIDDHARTHA FISHER MD Panel Description: HIV [...] purpose. For additional information please refer tohttp://educat [email or web address]/F AQ106(This link is being provided for informational/e ducational purposes only.) The performance of this assay has not been clinicallyvalid ated in patients less than 2 years old. REPORT COMMENT:FASTING :YESTest performed at [facility] [address],[place] [address]Tmylw tor: SIDDHARTHA FISHER MD Panel Description: OBSTETRIC PANEL Preliminary HEPATITIS B SURFACE ANTIGEN 00:00:00 NON-REACTIV E NON-REACTI VE N Preliminary Test performed at [facility] [address],[place] [address]Cncei tor: SIDDHARTHA FISHER MD Panel Description: OBSTETRIC [...] POSITIVE Preliminary REPORT COMMENT:FASTING :YESTest performed at [facility] [address],[place] [address]Rnide tor: SIDDHARTHA FISHER MD Panel Description: OBSTETRIC PANEL Final RPR (DX) W/REFL TITER AND CONFIRMATOR Y TESTING 13:00:00 NON-REACTIV E NON-REACTI VE N Final REPORT COMMENT:FASTING :YESTest performed at [facility] [address],[place] [address]Ylzsy tor: SIDDHARTHA FISHER MD Panel Description: SICKLE CE LL SCREEN W/REFL HEMOGLOBINOPATHY EVAL Final SICKLE CELL SCREEN 11:00:00 NEGATIVE NEGATIVE N Final Hemoglobin solubility testing alone is insufficientfor detecting or confirming the presence of sicklinghemoglo bins in some situations. Additional testingmay be required for diagnosis of hemoglobinopath ies.For more information on this test go to:http://educa tion.Kontera/faq/ [email or web address] REPORT COMMENT:FASTING :YESTest performed at [facility] [address],[place] [address]Bmuye tor: SIDDHARTHA FISHER MD Panel Description: CYSTIC [...] Detection Before After Negative Rate Test ResultAshkenazi Orthodoxy 94% 1 in 24 1 in 400Non- 88% 1 in 25 1 in 208CaucasianHis panic-Hungarian 72% 1 in 46 1 in 164African-Amer ican 65% 1 in 65 1 in 186Asian-Americ an 49% 1 in 94 1 in 184Other insufficient data available MUTATIONS/P OLYMORPHISM S 10:00:00 see note Final G85E (c.254G>A ) R334W (c.1000C>T)394d elTT (c.262delTT) R347H (c.1040G>A)R117 H (c.350G>A) R347P (c.1040G>C)621+ 1 G>T (c.489+1G>T) A455E (c.1364C>A)711+ 1 G>T (c.579+1G>T) 1507del (c.1519delATC)1 078delT (c.948delT) Q425wqd (c.1521delCTT)V 520F (c.1558G>T) R553X (c.1657C>T)1717 -1 G>A (c.1585-1G>A) R560T (c.1679G>C)G542 X (c.1624G>T) 1898+1 G>A (c.1766+1G>A)S5 49N (c.1646G>A) 2183AA>G (c.2051delAAins G)S549R (c.1645A>C or c.1647T>G) 2184delA (c.2052delA)G55 1D (c.1652G>A) 2789+5 G>A (c.2657+5G>A)31 20+1 G>A (c.2988+1G>A) H7900I (c.3846G>A)R116 2X (c.3484C>T) V1787M (c.3909C>G)3659 delC (c.3528delC)384 9+10kb C>T (C.3717+41961M> T)3876delA (c.3744delA)390 5insT (c.3773insT) This assay detects [...] REVIEWER 10:00:00 see note Final Ifeoma Sears, Ph.D.,[facility] ctor, Molecular Genetics Health care providers, please contact your local [facility] s' genetic counselor or call [phone] for assistance with interpretation ofthese results. The analytical performance characteristics of thisassay have been determined by [place] The modificationsha ve not been cleared or approved by the FDA. Thisassay has been validated pursuant to the CLIAregulations and is used for clinical purposes. For additional information, please refer [email or web address] [email or web address]/faq/c fscreen(This link is being provided for informational/e ducational purposes only.) REPORT COMMENT:FASTING :Y[facility]est performed at [facility] [place] [address]Hphiq tor: RYLEY RIOS MD,PHD Panel Description: Varicella [...] VZV infection.REPOR T COMMENT:FASTING :YESTest performed at [facility] [address],[place] [address]Wpkqn tor: SIDDHARTHA FISHER MD Panel Description: Hepatitis B virus surface Ab [Units/volume] in Serum or Plasma by Immunoassay Final HEPATITIS B SURFACE AB IMMUNITY, QN 00:00:00 66 mIU/mL > OR = 10 N Final PATIENT HAS IMMUNITY TO HEPATITIS B VIRUS.For additional information, please refer tohttp://educat [email or web address]/faq/F AQ105(This link is being provided for informational/e ducational purposes only).REPORT COMMENT:FASTING :YESTest performed at [facility] [address],[place] [address]Ebioy tor: SIDDHARTHA FISHER MD Panel Description: DRUG [...] interpreting these drug results, please contact a [facility] Toxicology Specialist: [phone] TOX ( ), M-F, 8am-6pm EST.Test performed at [facility] [place] [address],[place] [address]Zxfzs tor: SIDDHARTHA FISHER MD Panel Description: Bacteria identified in Urine by Culture Final CULTURE, URINE, ROUTINE 07:00:00 SEE NOTE Final CULTURE, URINE , ROUTINE MICRO NUMBER: [id number] TEST STATUS: FINAL SPECIMEN SOURCE: URINE SPECIMEN QUALITY: ADEQUATE RESULT: Multiple organisms present, each less than 10,000 CFU/mL. These organisms, commonly found on external and internal genitalia, are considered to be colonizers. No further testing performed.Test performed at [facility] [address],[place] [address]Xbkll tor: SIDDHARTHA FISHER MD Advance Directives Directive [...] Provider Providers Copied on Encounter VISIT - [facility], [address] [place], [address], [place] tel:[phone] [facility] PNR (chief complaint) Encounter for screening, unspecifiedSp otting complicating , first zerknaosv41 weeks gestation of pregnancyEnco unter for supervision of other normal , first trimester No Information VISIT - [facility], [address] [place], [address], [place] tel:[phone] [facility] spotting (chief complaint) Body mass index (BMI) 30.0-30.9, adultEncounte r for screening, unspecifiedBl eeding in early dzxtisrbx61 weeks gestation of 7 Fiona Chandler. [address] [facility], [id number] [address] [place] [address], [address], [place]. tel: [phone] VISIT - [facility], [address] [place], [address], [place] tel:[phone] [facility] initial (chief complaint) 8 weeks gestation of pregnancyEnco unter for supervision of other normal , first trimester No Information [facility], [address] [place], [address], [place] tel:[phone] [facility] Ob Ultrasound (chief complaint) Encounter for screening 7 Arin Rouse. 500 [facility], [id number] [address] [place] [address], [address], [place]. tel: [phone] OFFICE/OUTPA TIENT VISIT, EST [facility], [address] [place], [address], [place] tel:[phone] [facility] pelvic pain (chief complaint)FILLER SHAKER US (chief complaint) Encounter for test, result positiveEncou nter for screening, unspecifiedPe lvic pain in female 7 No Information PREV VISIT, EST, AGE 18-39 [facility], [address] [place], [address], [place] tel:[phone] [facility] Annual Exam (chief complaint)CDC /ZAKI (chief complaint) Encntr for refractory specialist exam (general) (routine) w/o abn findings No Information OFFICE/OUTPA TIENT VISIT, [facility], [address] [place] [address], [address], [place] tel:[phone] [facility] Vaginal odor (chief complaint) Body mass index (BMI) 27.0-27.9, adultVaginal odor Mule Geraldine. 500 [facility], [id number] [address] [place] [address], [address], [place]. tel:[phone] [facility], [address] [place] [address], [address], [place] tel:[phone] [facility] Dental Encounter for dental exam and cleaning w/o abnormal findings Sundar Bonilla. 500 [facility], [id number] [address] [place] [address], [id number], [place]. tel:[phone] OFFICE/OUTPA TIENT VISIT, [facility], [address] [place] [address], [address], [place] tel:[phone] [facility] vaginal discharge/itc eva (chief complaint) Body mass index (BMI) 29.0-29.9, adultEncounte r for sexually transmitted disease screeningCand idal vulvovaginiti sOther specified noninflammato ry disorders of vaginaEncount er for screening for other viral diseases No Information OFFICE/OUTPA TIENT VISIT, [facility], [address] [place] [address], [address], [place] tel:[phone] [facility] Follow Up of contraception (chief complaint) Body mass index (BMI) 28.0-28.9, adultEncounte r for test, result negativeEncou nter for surveillance of contraceptive pills No Information [facility], [address] [place] [address], [address], [place] tel:[phone] [facility] Dental Encounter for dental exam and cleaning w/o abnormal findings 6 Aquiles Martinez. [address], [id number] [address] [place] [address], [id number], [place]. tel:[phone] [facility], [address] [place] [address], [address], [place] tel:[phone] [facility] Dental Dental caries on pit and fissure surfc penetrat into dentin 6 No Information OFFICE/OUTPA TIENT VISIT, [facility], [address] [place] [address], [address], [place] tel:[phone] [facility] BP check while on COCs (chief complaint) Encounter for other general counseling on contraception No Information OFFICE/OUTPA TIENT VISIT, [facility], [address] [place] [address], [address], [place] tel:[phone] [facility] Adult Medicine right groin pain (chief complaint) Encounter for screening, unspecifiedRi ght groin pain No Information [facility], [address] [place] [address], [address], [place] tel:[phone] [facility] Dental Encounter for dental exam and cleaning w/o abnormal findings Aliyah Ravi. [facility] [place], [id number] [address] [place] [address], [id number], [place]. tel:[phone] Referring Provider: Breonna Ly, [address] [id number] [address] [place] [address], [id number] . tel:[phone] OFFICE/OUTPA TIENT VISIT, [facility], [address] [place] [address], [address], [place] tel:[phone] [facility] follow up (chief complaint) Encounter for other general counseling on contraception 6 No Information OFFICE/OUTPA TIENT VISIT, [facility], [address] [place], [address], [place] tel:[phone] [facility] Irregular menses (chief complaint)Adj ust OCPs (chief complaint) Encounter for screening, unspecifiedEn counter for test, result negativeAbnor mal uterine bleeding 6 No Information [facility], [address] [place] [address], [address], [place] tel:[phone] [facility] Dental Encounter for dental exam and cleaning w/o abnormal findings 6 Aliyah Ravi. Ping [place], [id number] [address] [place] [address], [id number], [place]. [phone] Referring Provider: Breonna Ly, [address] [id number], [place], [address] . tel:[phone] [facility], [address] [place] [address], [address], [place] tel:[phone] [facility] Dental Encounter for dental exam and cleaning w/o abnormal findings 6 Aliyah Ravi. [facility] [place], [id number] [address] [place] [address], [id number], [place]. [phone] Referring Provider: Breonna Ly, [address] [id number] [facility], [place], [address] . tel:[phone] PREV VISIT, [facility], AGE 18-39 [facility], [address] [place] [address], [address], [place] tel:[phone] [facility] Adult Medicine Establish Care (chief complaint) Body mass index (BMI) 28.0-28.9, adultRoutine physical examination 6 No Information OFFICE/OUTPA TIENT VISIT, EST [facility], [address] [place] [address], [address], [place] tel:[phone] [facility] Adult Medicine Varicella vaccine status (chief complaint) Body mass index (BMI) 28.0-28.9, adultEncounte r for screening, unspecifiedEn counter for test, result negativeVacci ne counseling 5 No Information [facility], [address] [place] [address], [address], [place] tel:[phone] [facility] Dental Encounter for dental exam and cleaning w/o abnormal findings 5 Aquiles Martinez. Ping [facility], [id number] [address] [place] [address], [id number], [place]. tel:[phone] Referring Provider: Juan Kwan, [address] [id number] [address] [place] [address], [id number] . tel:[phone] OFFICE/OUTPA TIENT VISIT, [facility], [address] [place] [address], [address], [place] tel:[phone] [facility] Adult Medicine immunization/ titers (chief complaint) Immunization due 5 No Information OFFICE/OUTPA TIENT VISIT, [facility], [address] [place] [address], [address], [place] tel:[phone] [facility] ROUTINE FILLER SHAKER EXAMINATIONCl inical breast examContracep tive pill surveillance 4 No Information OFFICE/OUTPA TIENT VISIT, [facility], [address] [place] [address], [address], [place] tel:[phone] [facility] vaginal odor (chief complaint) VaginitisSTD SCREEN 4 No Information [facility], [address] [place] [address], [address], [place] tel:[phone] Conversion VAGINITIS AND VULVOVAGINITI S UNSPECIFIED 3 No Information [facility], [address] [place] [address], [address], [place] tel:[phone] Conversion CANDIDIASIS VAGINALSTD SCREEN 2 No Information [...] Vaccine Date Status Comments Tdap administered Source: [facility] unization Record Payers Payer name Insurance type Covered constitution party ID Zandra robles(s) Slide[employer] [id number] [employer] [id number] Social History Type Description Quantity Date Captured [...] 06/07/17 currently 4.4 wks with tamiko 03/14/18. FILLER SHAKER US r/o ectopic/ low er abdominal pain CDC/ZAKI [...] and was advised to follow up in [facility] states the pain has resovled right [...] rather than returning to otc COCs from [facility] Adjust OCPs Pt denies medica l history [...] OCPs: triphasic levonorgesterl / ethinylestradiol (rx'd from [facility]). Denies late / missed / doubling on pills. 01/09/16: Cbc, tsh, hgA1c normal from [facility]. Establish Care Patient presents to office to establish care with a PCP. She denies any history of chronic medical conditions. She does not have any complaints today.Surgical: NoneSocial: Does not smoke, drink nor use drugs. She is and is using oral contraceptives from [facility]. She is disatisfied with the weight gain. She is considering IUD placement. Family: Father with HTN, prostate CA; mother of ectopic pregnancyPrevention: Needs updated Tdap, needs eye exam and FILLER SHAKER exam. UTD dental. Varicella vaccine status Patient presents to the office to discuss her varicella vaccine status. She came to the office in July 2015 and had titier performed. She was under the impression she was in need of a varicella vaccine. Titers show that the patient is immune. 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 She states that she has other documentation from [facility] stating she is immune to MMR. immunization/titers needs varice lla titer cdc office visit Pt here for refractory specialist exam with [facility] program. No refractory specialist complaints. Has been on a BCP x veral years. Rx is from [facility]. Does not know name. No problems. Light Periods. ROS neg. vaginal odor wants state std testing vaginal odor (comments) 33 yo here for vaginal odorLMP 03/21/14, just endedPt c/o vaginal odor since the end of the menses. Denies vaginal irritation, d/c, urination sx, lower abd pain, fever or chillsSA w 1 partner, denies DV. Using OCP daily from [facility] without difficulties. Denies ACHESDenies PMHx, SMHx, blood clotting disease, smoking cigarettes, or hx of FILLER SHAKER/GI cancersDenies hx of STDs in the past [...] pain or lumps. Related to Encntr for refractory specialist exam (general) (routine) w/o abn findings o [...] (BMI) 28.0-28.9, adult [facility] e time each dayEncouraged condom [...]
--- OUTSIDE RECORDS SUMMARY | 2024-12-10 09:41 | XMS_ITS | Clinical Summary ---
Author Organization [facility] Address [address] [place] [address] Care Team Providers Care Covered Buckle Assembler Name Role Phone Pcp, No Primary Care [...] age to complete this topic Care Teams Covered Buckle Assembler Relationship Specialty Start Date End Date Pcp, No PCP - General General Medicine 08/02/19
--- OUTSIDE RECORDS SUMMARY | 2024-12-10 09:41 | XMS_ITS | Clinical Summary ---
Author Organization [facility] ity Address [address] [place] [address] Care Team Providers Care Historiography Teacher Name Role Phone Unavailable Primary Care Provider Unavailabl e Social History Tobacco Use Types Packs/Day Years Used Date Smoking Tobacco: Never Assessed Comments Unknown Sex and Gender Information Value Date Recorded Sex Assigned at Not on file Legal Sex Female 7:27 AM EST Gender Identity Not on file Sexual Orientation Not on file Plan of Treatment Health Maintenance Due Date Last Done Comments Breast Cancer Screening 1980 Hepatitis B Vaccines (1 of 3 - 19+ 3-dose series) 1999 Cervical Cancer Screening: P ap Smear 2001 DTaP,Tdap,and Td Vaccines (2 - Td or Tdap) 07/19/2020 06/21/2020 Depression Screening 09/29/2022 HIV Screening 09/29/2022 Hepatitis C Screening 09/29/2022 Social Influencers of Health Screening 09/29/2022 COVID-19 Vaccine ( - 2023-2 5 season) 2024 Influenza Vaccine (#1) 2024 HIB Vaccines Aged Out No longer eligi [...] patient's age to complete this topic Meningococcal B Vacine Aged Out No lo nger eligible based on patient's age to complete [...]
--- OUTSIDE RECORDS SUMMARY | 2024-12-10 09:41 | XMS_ITS | Encounter Summary ---
Author Organization [facility] Address [address] [place] [address] Care Team Providers Care Pricing Coordinator Name Role Phone Pcp, No Primary Care Provider Unavailabl e Encounter Details Date Type Department Care Team (Late st Contact Info) Description 10/31/2020 Lab Requisition [facility] [address] [place] [id number] Dash López MD [address] [place] [address] [phone] Encounter for laboratory testing for COVID-19 virus [...] Priority Date/Time Associated Diagnosis Comments COVID-19 RT-PCR ([employer]) Routine 10/31/2020 6:58 AM EST Encounter for laboratory testing for COVID-19 virus [ICD-10-CM] documented in this encounter Results * (ABNORMAL) COVID-19 RT-PCR ([facility]) (10/31/2020 6:58 AM EST) COVID-19 RT-PCR POSITIVE SARS-COV-2( A) Not Detected 11/01/2020 10:31 AM EST [facility] Comment: ADDITIONAL INFORMATION The JEANNETTE COVID-19 RT-PCR Assay is Real-Time Reverse Rolling Attendant Polymerase Chain Reaction (radio television technical director-PCR) for the in vitro qualitative detection of three SARS-Cov-2 target sequences unique to the coronavirus disease 2019 (COVID-19). This is an Emergency Use Authorization (EUA) in vitro diagnostic (IVD) test that has been modified to include the Categorical automated liquid handler. Its analytical performance characteristics have been determined by the sign board erector and verified by [facility] in a manner consistent with CLIA requirements. [...] at the following links: For Healthcare Providers: https://www.fda.gov/media/244537/download For Patients: https://www.fda.gov/media/927347/download TEST LIMITATIONS Positive results are indicative of [...] system. For further details refer to the [employer] TaqPath COVID-19 Combo Kit EUA submission (https://www.Flowgram.gov/media/464401/download). ----- Test performed by [facility], [address] [place] [address] CLIA# [id number] ?[id number] ? Demario Landeros M.D., Ph.D., [facility] [place] Clinical Software Business Analyst Microbiology Nasopharyngeal swab / Unknown 10/31/2020 6:58 AM EST 10/31/2020 6:58 AM EST Narrative [facility] - 11/01/2020 10:31 AM EST Performed at [facility], [address], [place], [place] Lic [address], CLIA [id number] Dash López MD MICROBIOLOGY - GENER AL ORDERABLES [address] [address] documented in this encounter Visit Diagnoses Diagnosis Encounter for laboratory testing for COVID-19 virus documented in this encounter Care Teams Pricing Coordinator Relationship Specialty Start Date End Date Pcp, No PCP - General General Medicine 08/02/19 documented as of this encounter
== END 2024-12-10 09:56 | disposition home or self-care (01) ==
PROVIDERS: PCP Internal Medicine; Visit Provider Student in an Organized Health Care Education/Training Program
DX: E04.2 Nontoxic multinodular goiter (principal)
CPT/HCPCS: 99213

== ENCOUNTER → 2024-12-10 09:18 | Outpatient (BNVA) | payer OTHER, SELFPAY | PROVIDERS: PCP Internal Medicine; Visit Provider Student in an Organized Health Care Education/Training Program | DX: E04.2 Nontoxic multinodular goiter (principal) | CPT/HCPCS: 99212 ==

== ENCOUNTER 2024-12-10 10:04 | Outpatient (REF) | payer OTHER, SELFPAY ==
--- OUTSIDE RECORDS SUMMARY | 2024-12-10 10:47 | XMS_ITS | Clinical Summary ---
Author Organization [facility] ity Address [address] [place] [address] Care Team Providers Care Executive Sales Manager Name Role Phone Unavailable Primary Care Provider [...] Influencers of Health Screening 09/29/2022 COVID-19 Vaccine (1 - 2023-2 5 season) 2024 Influenza Vaccine [...]
--- OUTSIDE RECORDS SUMMARY | 2024-12-10 10:47 | XMS_ITS | Clinical Summary ---
Author Organization [facility] Address [address] [place] [address] Care Team Providers Care Cross Tie Cutter Name Role Phone Pcp, No Primary Care [...] age to complete this topic Care Teams Cross Tie Cutter Relationship Specialty Start Date End Date Pcp, No PCP - General General Medicine 08/02/19
--- OUTSIDE RECORDS SUMMARY | 2024-12-10 10:47 | XMS_ITS | Encounter Summary ---
Author Organization [facility] Address [address] [place] [address] Care Team Providers Care Lockstitch Tunnel Elastic Operator Name Role Phone Pcp, No Primary Care Provider Unavailabl e Encounter Details Date Type Department Care Team (Late st Contact Info) Description 10/31/2020 Lab Requisition EM LAB [facility] [address] [place] [id number] Dash López MD [address] [place] [phone] [phone] Encounter for laboratory testing for COVID-19 virus [...] Priority Date/Time Associated Diagnosis Comments COVID-19 RT-PCR ([employer]) Routine 10/31/2020 6:58 AM EST Encounter for laboratory testing for COVID-19 virus [ICD-10-CM] documented in this encounter Results * (ABNORMAL) COVID-19 RT-PCR ([facility]) (10/31/2020 6:58 AM EST) COVID-19 RT-PCR POSITIVE SARS-COV-2( A) Not Detected 11/01/2020 10:31 AM EST [facility] Comment: ADDITIONAL INFORMATION The JEANNETTE COVID-19 RT-PCR Assay is Real-Time Reverse Coal Pipeline Operator Polymerase Chain Reaction (it infrastructure engineer-PCR) for the in vitro qualitative detection of three SARS-Cov-2 target sequences unique to the coronavirus disease 2019 (COVID-19). This is an Emergency Use Authorization (EUA) in vitro diagnostic (IVD) test that has been modified to include the Citycelebrity automated liquid handler. Its analytical performance characteristics have been determined by the precision market insights and verified by [facility] in a manner consistent with CLIA requirements. [...] at the following links: For Healthcare Providers: https://www.fda.gov/media/541048/download For Patients: https://www.fda.gov/media/340142/download TEST LIMITATIONS Positive results are indicative of [...] system. For further details refer to the [employer] TaqPath COVID-19 Combo Kit EUA submission (https://www.[employer].gov/media/200421/download). ----- Test performed by [facility], [address] [place] [address] CLIA# [id number] ?[id number] ? Demario Landeros M.D., Ph.D., [facility], Clinical Datastage Architect Microbiology Nasopharyngeal swab / Unknown 10/31/2020 6:58 AM EST 10/31/2020 6:58 AM EST Narrative [facility] - 11/01/2020 10:31 AM EST Performed at [facility], [address], [place], [place] Lic 0695, CLIA [id number] Dash López MD MICROBIOLOGY - GENER AL ORDERABLES [address] [address] documented in this encounter Visit Diagnoses Diagnosis Encounter for laboratory testing for COVID-19 virus documented in this encounter Care Teams Lockstitch Tunnel Elastic Operator Relationship Specialty Start Date End Date Pcp, No PCP - General General Medicine 08/02/19 documented as of this encounter
--- OUTSIDE RECORDS SUMMARY | 2024-12-10 10:47 | XMS_ITS | Continuity of Care Document ---
Author Organization [facility] Address [address] [place] [address] Phone Care Team Providers Care Line Tender Flakeboard Name Role Phone Unavailable Unavailable Unavailable Allergies, [...] Surface, Poste rior [facility] OFF[facility]/OUTPATIENT VISIT, EST OFFICE/OUTPATIENT VISIT, EST Resin-Based Composite-One Surface, Poste rior Treatment Plan In Process [facility] OFFICE/OUTPATIENT VISIT, EST HEMOGLOBIN URINE TEST, BY VISUAL COLOR CO MPARISON OFFICE/OUTPATIENT VISIT, EST Resin-Based Composite-One Surface, Poste rior Treatment Plan In Process [facility] Comprehensive Oral Evaluation-New Or Est [...] Preliminary ABSOLUTE NEUTROPHILS 16:00:00 6473 cells/ uL [id number] N Preliminary ABSOLUTE LYMPHOCYTES 16:00:00 1523 cells/ [...] N Preliminary REPORT COMMENT:FASTING :YESTest performed at [facility] [address],[place] [address]Dndur tor: SIDDHARTHA FISHER MD Panel Description: OBSTETRIC PANEL Preliminary RUBELLA ANTIBODY (IGG) 00:00:00 7.75 index N Preliminary Index Interpretation ----- <0.90 Not consistent with Immunity 0.90-0.99 Equivocal > or = 1.00 Consistent with Immunity The presence of rubella IgG antibody suggests immunization or past or current infection withrubella virus.Test performed at [facility] [place] [address],[place] [address]Dtxch tor: SIDDHARTHA FISHER MD Panel Description: HIV [...] purpose. For additional information please refer tohttp://educat ion.[employer].com/faq/F AQ106(This link is being provided for informational/e ducational purposes only.) The performance of this assay has not been clinicallyvalid ated in patients less than 2 years old. REPORT COMMENT:FASTING :YESTest performed at [facility] [address],[place] [address]Hatcr tor: SIDDHARTHA FISHER MD Panel Description: OBSTETRIC PANEL Preliminary HEPATITIS B SURFACE ANTIGEN 00:00:00 NON-REACTIV E NON-REACTI VE N Preliminary Test performed at [facility] [address],[place] [address]Sxmxv tor: SIDDHARTHA FISHER MD Panel Description: OBSTETRIC [...] POSITIVE Preliminary REPORT COMMENT:FASTING :YESTest performed at [facility] [address],[place] [address]Kunum tor: SIDDHARTHA FISHER MD Panel Description: OBSTETRIC PANEL Final RPR (DX) W/REFL TITER AND CONFIRMATOR Y TESTING 13:00:00 NON-REACTIV E NON-REACTI VE N Final REPORT COMMENT:FASTING :YESTest performed at [facility] [address],[place] [address]Fxlag tor: SIDDHARTHA FISHER MD Panel Description: SICKLE CE LL SCREEN W/REFL HEMOGLOBINOPATHY EVAL Final SICKLE CELL SCREEN 11:00:00 NEGATIVE NEGATIVE N Final Hemoglobin solubility testing alone is insufficientfor detecting or confirming the presence of sicklinghemoglo bins in some situations. Additional testingmay be required for diagnosis of hemoglobinopath ies.For more information on this test go to:http://educa tion.[employer]/faq/ AUA54l4 REPORT COMMENT:FASTING :YESTest performed at [facility] [address],[place] [address]Rfgko tor: SIDDHARTHA FISHER MD Panel Description: CYSTIC [...] Detection Before After Negative Rate Test ResultAshkenazi Anabaptist 94% 1 in 24 1 in 400Non- 88% 1 in 25 1 in 208CaucasianHis panic-Azerbaijani 72% 1 in 46 1 in 164African-Amer ican 65% 1 in 65 1 in 186Asian-Americ an 49% 1 in 94 1 in 184Other insufficient data available MUTATIONS/P OLYMORPHISM S 10:00:00 see note Final G85E (c.254G>A ) R334W (c.1000C>T)394d elTT (c.262delTT) R347H (c.1040G>A)R117 H (c.350G>A) R347P (c.1040G>C)621+ 1 G>T (c.489+1G>T) A455E (c.1364C>A)711+ 1 G>T (c.579+1G>T) 1507del (c.1519delATC)1 078delT (c.948delT) X084gmv (c.1521delCTT)V 520F (c.1558G>T) R553X (c.1657C>T)1717 -1 G>A (c.1585-1G>A) R560T (c.1679G>C)G542 X (c.1624G>T) 1898+1 G>A (c.1766+1G>A)S5 49N (c.1646G>A) 2183AA>G (c.2051delAAins G)S549R (c.1645A>C or c.1647T>G) 2184delA (c.2052delA)G55 1D (c.1652G>A) 2789+5 G>A (c.2657+5G>A)31 20+1 G>A (c.2988+1G>A) B1889R (c.3846G>A)R116 2X (c.3484C>T) M9842E (c.3909C>G)3659 delC (c.3528delC)384 9+10kb C>T (C.3717+37328T> T)3876delA (c.3744delA)390 5insT (c.3773insT) This assay detects [...] REVIEWER 10:00:00 see note Final Ifeoma Sears, Ph.D.,[facility] ctor, Molecular Genetics Health care providers, please contact your local Level Chef s' genetic counselor or call writewith([phone]) for assistance with interpretation ofthese results. The analytical performance characteristics of thisassay have been determined by [facility] [place]. The modificationsha ve not been cleared or approved by the FDA. Thisassay has been validated pursuant to the CLIAregulations and is used for clinical purposes. For additional information, please refer tohttp://educat ion.[employer].com/faq/c fscreen(This link is being provided for informational/e ducational purposes only.) REPORT COMMENT:FASTING :YESTest performed at [facility] [place] [address]Knsql tor: RYLEY RIOS MD,PHD Panel Description: Varicella [...] VZV infection.REPOR T COMMENT:FASTING :YESTest performed at [facility] [address],[place] [address]Mlken tor: SIDDHARTHA FISHER MD Panel Description: Hepatitis B virus surface Ab [Units/volume] in Serum or Plasma by Immunoassay Final HEPATITIS B SURFACE AB IMMUNITY, QN 00:00:00 66 mIU/mL > OR = 10 N Final PATIENT HAS IMMUNITY TO HEPATITIS B VIRUS.For additional information, please refer tohttp://educat ion.[employer].com/faq/F AQ105(This link is being provided for informational/e ducational purposes only).REPORT COMMENT:FASTING :YESTest performed at [facility] [address],[place] [address]Ljucp tor: SIDDHARTHA FISHER MD Panel Description: DRUG [...] interpreting these drug results, please contact a [facility] Toxicology Specialist: [phone] ( ), M-F, 8am-6pm EST.Test performed at [facility] [place] [address],[place] [address]Djqtq tor: SIDDHARTHA FISHER MD Panel Description: Bacteria identified in Urine by Culture Final CULTURE, URINE, ROUTINE 07:00:00 SEE NOTE Final CULTURE, URINE , ROUTINE MICRO NUMBER: [id number] TEST STATUS: FINAL SPECIMEN SOURCE: URINE SPECIMEN QUALITY: ADEQUATE RESULT: Multiple organisms present, each less than 10,000 CFU/mL. These organisms, commonly found on external and internal genitalia, are considered to be colonizers. No further testing performed.Test performed at [facility] [address],[place] [address]Gkurf tor: SIDDHARTHA FISHER MD Advance Directives Directive [...] Provider Providers Copied on Encounter VISIT - [facility], [address] [place], [address], [place] tel:[phone] [facility] PNR (chief complaint) Encounter for screening, unspecifiedSp otting complicating , first lbvykdgcj75 weeks gestation of pregnancyEnco unter for supervision of other normal , first trimester No Information VISIT - [facility], [address] [place], [address], [place] tel:[phone] [facility] spotting (chief complaint) Body mass index (BMI) 30.0-30.9, adultEncounte r for screening, unspecifiedBl eeding in early rfmfzozir67 weeks gestation of 7 Fiona Chandler. [facility], [id number] [address] [place] [address], [address], [place]. tel: [phone] VISIT - [facility], [address] [place], [address], [place] tel:[phone] [facility] initial (chief complaint) 8 weeks gestation of pregnancyEnco unter for supervision of other normal , first trimester No Information [facility], [address] [place], [address], [place] tel:[phone] [facility] Ob Ultrasound (chief complaint) Encounter for screening 7 Arin Rouse. 500 [facility], [id number] [address] [place] [address], [address], [place]. 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 500 [facility], [id number] [address] [place] [address], [address], [place]. tel:[phone] [facility], [address] [place] [address], [address], [place] tel:[phone] [facility] Dental Encounter for dental exam and cleaning w/o abnormal findings Sundar Bonilla. 500 [facility], [id number] [address] [place] [address], [id number], [place]. tel:[phone] OFFICE/OUTPA TIENT VISIT, [facility], [address] [place] [address], [address], [place] tel:[phone] [facility] vaginal discharge/itc eva (chief complaint) Body mass index (BMI) 29.0-29.9, adultEncounte r for sexually transmitted disease screeningCand idal vulvovaginiti sOther specified noninflammato ry disorders of vaginaEncount er for screening for other viral diseases No Information OFFICE/OUTPA TIENT VISIT, [facility], [address] [place] [address], [address], [place] tel:[phone] [facility] Follow Up of contraception (chief complaint) Body mass index (BMI) 28.0-28.9, adultEncounte r for test, result negativeEncou nter for surveillance of contraceptive pills No Information [facility], [address] [place] [address], [address], [place] tel:[phone] [facility] Dental Encounter for dental exam and cleaning w/o abnormal findings 6 Aquiles Martinez. [address], [id number] [address] [place] [address], [id number], [place]. tel:[phone] [facility], [address] [place] [address], [address], [place] tel:[phone] [facility] Dental Dental caries on pit and fissure surfc penetrat into dentin 6 No Information OFFICE/OUTPA TIENT VISIT, [facility], [address] [place] [address], [address], [place] tel:[phone] [facility] Womens Health BP check while on COCs (chief complaint) Encounter for other general counseling on contraception No Information OFFICE/OUTPA TIENT VISIT, [facility], [address] [place] [address], [address], [place] tel:[phone] [facility] Adult Medicine right groin pain (chief complaint) Encounter for screening, unspecifiedRi ght groin pain No Information [facility], [address] [place] [address], [address], [place] tel:[phone] [facility] Dental Encounter for dental exam and cleaning w/o abnormal findings Aliyah Ravi. [facility] [place], [id number] [address] [place] [address], [id number], [place]. tel:[phone] Referring Provider: Breonna Ly, [address] [id number] [address] [place] [address], [id number] . tel:[phone] OFFICE/OUTPA TIENT VISIT, [facility], [address] [place] [address], [address], [place] tel:[phone] [facility] Womens Health follow up (chief complaint) Encounter for other general counseling on contraception 6 No Information OFFICE/OUTPA TIENT VISIT, [facility], [address] [place], [address], [place] tel:[phone] [facility] Womens Health Irregular menses (chief complaint)Adj ust OCPs (chief complaint) Encounter for screening, unspecifiedEn counter for test, result negativeAbnor mal uterine bleeding 6 No Information [facility], [address] [place] [address], [address], [place] tel:[phone] [facility] Dental Encounter for dental exam and cleaning w/o abnormal findings 6 Aliyah Ravi. [facility] [place], [id number] [address] [place] [address], [id number], [place]. [phone] Referring Provider: Breonna Ly, [address] [id number], [place], [address] . tel:[phone] [facility], [address] [place] [address], [address], [place] tel:[phone] [facility] Dental Encounter for dental exam and cleaning w/o abnormal findings 6 Aliyah Ravi. [facility][note 2] [place], [id number] [address] [place] [address], [id number], [place]. [phone] Referring Provider: Breonna Ly, [address] [place] [id number] [facility], [place], [address] . tel:[phone] PREV VISIT, [facility], AGE 18-39 [facility], [address] [place] [address], [address], [place] tel:[phone] [facility] Adult Medicine Establish Care (chief complaint) Body mass index (BMI) 28.0-28.9, adultRoutine physical examination 6 No Information OFFICE/OUTPA TIENT VISIT, EST [facility], [address] [place] [address], [address], [place] tel:[phone] [facility] Adult Medicine Varicella vaccine status (chief complaint) Body mass index (BMI) 28.0-28.9, adultEncounte r for screening, unspecifiedEn counter for test, result negativeVacci ne counseling 5 No Information [facility], [address] [place] [address], [address], [place] tel:[phone] [facility] Dental Encounter for dental exam and cleaning w/o abnormal findings 5 Aquiles Martinez. Ping [facility], [id number] [address] [place] [address], [id number], [place]. tel:[phone] Referring Provider: Juan Kwan, [address] [id number] [address] [place] [address], [address] . tel:[phone] OFFICE/OUTPA TIENT VISIT, [facility], [address] [place] [address], [address], [place] tel:[phone] [facility] Adult Medicine immunization/ titers (chief complaint) Immunization due 5 No Information OFFICE/OUTPA TIENT VISIT, [facility], [address] [place] [address], [address], [place] tel:[phone] [facility] (chief complaint) ROUTINE LABELER EXAMINATIONCl inical breast examContracep tive pill surveillance 4 No Information OFFICE/OUTPA TIENT VISIT, [facility], [address] [place] [address], [address], [place] tel:[phone] [facility] vaginal odor (chief complaint) VaginitisSTD SCREEN 4 No Information [facility], [address] [place] [address], [address], [place] tel:[phone] Conversion VAGINITIS AND VULVOVAGINITI S UNSPECIFIED 3 No Information [facility], [address] [place] [address], [address], [place] tel:[phone] Conversion CANDIDIASIS VAGINALSTD SCREEN 2 No Information [...] Vaccine Date Status Comments Tdap administered Source: [facility] unization Record Payers Payer name Insurance type Covered republican ID Zandra robles(s) [employer] [id number] [employer] [id number] Social History Type Description Quantity Date Captured [...] Illness PNR spotting initial Ob Ultrasound Dating LABELER US r/o ectopic/ low er abdominal pain [...] and was advised to follow up in [facility] states the pain has resovled right [...] rather than returning to otc COCs from [place] Irregular menses Last menstrual period was on [...] OCPs: triphasic levonorgesterl / ethinylestradiol (rx'd from [place]). Denies late / missed / doubling on [...] is and is using oral contraceptives from [place]. She is disatisfied with the weight gain. She is considering IUD placement. Family: Father with HTN, prostate CA; mother of ectopic pregnancyPrevention: Needs updated Tdap, needs eye exam and LABELER exam. UTD dental. Varicella vaccine status Patient presents to the office to discuss her varicella vaccine status. She came to the office in July 2015 and had titier performed. She was under the impression she was in need of a varicella vaccine. Titers show that the patient is immune. 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 She states that she has other documentation from [place] stating she is immune to MMR. 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 No electrophysiology technician complaints. Has been on a BCP x veral years. Rx is from [place]. Does not know name. No problems. Light Periods. ROS neg. vaginal odor wants state std testing vaginal odor (comments) 33 yo here for vaginal odorLMP 03/21/14, just endedPt c/o vaginal odor since the end of the menses. Denies vaginal irritation, d/c, urination sx, lower abd pain, fever or chillsSA w 1 partner, denies DV. Using OCP daily from [place] without difficulties. Denies ACHESDenies PMHx, SMHx, blood clotting disease, smoking cigarettes, or hx of LABELER/GI cancersDenies hx of STDs in the past [...] pain or lumps. 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
[2024-12-10 12:04] LABS: Free T4 (Free Thyroxine) 1.03 ng/dL (0.71-1.85); Thyroid Stimulating Hormone 0.29 uIU/mL (0.32-4.0)
== END 2024-12-10 10:05 | disposition home or self-care (01) ==
LOC: HO.10HDL 10:04
PROVIDERS: Visit Provider Student in an Organized Health Care Education/Training Program
DX: E04.2 Nontoxic multinodular goiter (principal)
CPT/HCPCS: 36415; 84439; 84443

== ENCOUNTER 2025-01-28 10:56 | Outpatient (AMB) | payer OTHER, SELFPAY ==
[2025-01-28 11:05] VITALS: BP 102/70; PULSE 94; RESP 20; TEMP 37.2; O2SAT 100; BMI 31.6
--- NOTE | 2025-01-28 11:05 | A.OFFPC_ITS ---
Vital Signs 01/28/25 11:05 Height 5 ft 4 in Weight 184 lb BMI 31.6 BP 102/70 Blood Pressure Location Lt brachial Position Sitting Respiration 20 Pulse 94 Pulse Source Pulse Oximeter Temp 98.9 F Temp Source Oral Pulse Oximetry (%) 100 Oxygen Delivery Method Room Air Intake Visit Reasons: stress Intake Note: Pt is here today for a sick visit. Pt c/o a lot stress Allergies No Known Allergies Allergy (Verified 01/28/25 11:09) Tobacco use date assessed: 12/07/24 Dental Screening Dental Screen Date: 01/28/25 Did you have a dental visit in the last 12 months?: Yes Did you have a dental problem in the last 6 months where you did not have access to dental care?: No Was dental information given to patient?: Patient has dentist HPI stress HPI Details Patient presents complaining of increased stress anxiety feeling overwhelmed and the times. She denies depression suicide ideation change in appetite or sleep pattern. 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 1. Little interest or pleasure in doing things: several days 2. Feeling down, depressed, or hopeless: several days 3. Trouble falling or staying asleep, or sleeping too much: several days 4. Feeling tired or having little energy: not at all 5. Poor appetite or overeating: not at all 6. Feeling bad about yourself - or that you are a failure or have let yourself or your family down: not at all 7. Trouble concentrating on things, such as reading the newspaper or watching television: several days 8. Moving or speaking so slowly that other people could have noticed. Or the opposite - being so fidgety or restless that you have been moving around a lot more than usual: not at all 9. Thoughts that you would be better off or of hurting yourself in some way: not at all Total score: 4 Depression Screening Interpretation: Negative Depression Screening Done: Yes 70358 - PHQ-9 Billing: Yes Source: Developed by Drs. Kj Hoang, Geraldine Kwan, Rai Chowdhury and colleagues, with an educational venkat from [employer]. Thrive Questionnaire Date Thrive assessed: 01/28/25 I am a: Patient What is your living situation today?: I have a steady place to live Within the past 12 months, did the food you bought not last and you didn't have the money to get more?: I choose not to answer this question Within the past 12 months, did you worry whether your food would run out before you got money to buy more?: I choose not to answer this question Do you have trouble paying for medicines?: No Do you have trouble getting transportation to medical appointments?: No Do you have trouble paying your heating and electricity bill?: No Do you have trouble taking care of your child, family member or friend?: No Do you have trouble with day-to-day activities such as bathing, preparing meals, shopping, managing finances, etc.?: No Are you currently unemployed and looking for a job?: No Are you interested in more education?: Yes Please select the resources that you would like help with: None Currently or been in a relationship where the following occur: I choose not to answer THRIVE Score: 0 AUDIT C Alcohol Use Questionnaire (AUDIT-C) 1. How often do you have a drink containing alcohol?: Never 3. How often do you have six or more drinks on one occasion?: Never Total Score: 0 ELDA-7 AMB Questionnaire ELDA-7 Date ELDA - 7 assessed: 01/28/25 Feeling nervous, anxious, or on edge: 1 = Several days Not being able to stop or control worryin = Several days Worrying too much about different things: 1 = Several days Trouble relaxin = Not at all Being so restless that it is hard to sit still: 0 = Not at all Becoming easily annoyed or irritable: 0 = Not at all Feeling afraid as if something awful might happen: 0 = Not at all Total ELDA-7 score (0-4 normal; 5-9 mild; 10-14 moderate; 15-21 severe): 3 Source: Developed by Drs. Kj Hoang, Geraldine Kwan, Rai Chowdhury and colleagues, with an educational venkat from [employer]. ELDA-7 Assessment Billing ELDA-7 Assessment Tool: ELDA-7 Assessment 59351 Review of Systems Const All systems reviewed & are unremarkable except as noted in HPI and below Eyes Reports no additional complaints Card Reports no additional complaints Resp Reports no additional complaints GI Reports no additional complaints Reports no additional complaints Physical exam (Primary Care) Vital Signs: Last Vital Signs Temp 98.9 F 01/28/25 11:05 Pulse 94 01/28/25 11:05 Resp 20 01/28/25 11:05 BP 102/70 01/28/25 11:05 Pulse Ox 100 01/28/25 11:05 Oxygen Delivery Method Room Air 01/28/25 11:05 BMI result Body Mass Index 31.6 Tobacco/Smoking Status: Tobacco use Status Tobacco use date assessed 12/07/24 01/28/25 11:11 Patient Tobacco Use Status Never used Tobacco 01/28/25 11:11 e-Cigarette/Vaping Use Never Used 01/28/25 11:11 PHQ-9: PHQ-9 Score PHQ-9: Total score 4 01/28/25 12:05 Depression Screening Interpretation: Negative Thrive Assessment: Date of Thrive Assessment Date Thrive assessed 01/28/25 01/28/25 11:11 Currently or been in a relationship where the following occur: I choose not to answer Const General: no acute distress HENMT Head: Yes normal to inspection Face and sinus: Yes normal facial exam Throat: Yes posterior oropharynx normal Eyes General: appearance normal, both eyes and all related structures Neck Neck: Yes no lymphadenopathy and Yes supple Resp Effort & Inspection: normal respiratory effort Auscultation: clear to auscultation bilaterally Cardio Rhythm: regular rhythm Heart sounds: S1 normal heart sound present and S2 normal heart sound present GI Inspection: Yes normal to inspection Palpation (GI): Soft to palpation Percussion: Yes normal to percussion Coding Level of Care Code Est Pt Level 3 (21485) Diagnoses Anxiety F41.9 Additional Codes ELDA-7 Assessment Billing - ELDA-7 Assessment Tool: ELDA-7 Assessment 85076 ([id number]) PHQ-9 - 30771 - PHQ-9 Billing: Yes ([id number]) Assessment & Plan Assessment & Plan (1) Anxiety: Code(s): F41.9 - Anxiety disorder, unspecified Category: Medical Plan: Stress management mindfulness discussed with the patient she will be referred to a counseling
--- OUTSIDE RECORDS SUMMARY | 2025-01-28 12:42 | XMS_ITS | Clinical Summary ---
Author Organization [address] [place] [address] [place] [phone] Phone Care Team Providers Care Sandstone Inspector Repairer Name Role Phone Unavailable Primary Care Provider [...]
--- OUTSIDE RECORDS SUMMARY | 2025-01-28 12:42 | XMS_ITS | Continuity of Care Document ---
Author Organization [facility] Address [address] [place] [address] Phone Care Team Providers Care Torch Operator Name Role Phone Unavailable Unavailable Unavailable [...] [facility]e [facility] OFF[facility]/OUTPATIENT VISIT, EST OFFICE/OUTPATIENT VISIT, EST Resin-Based Composite-One Surface, Poste rior Treatment Plan In Process [facility] OFFICE/OUTPATIENT VISIT, EST HEMOGLOBIN URINE TEST, BY VISUAL COLOR CO MPARISON OFFICE/OUTPATIENT VISIT, EST Resin-Based Composite-One Surface, Poste rior Treatment Plan In Process [facility] Comprehensive Oral Evaluation-New Or Est ablished [...] Preliminary ABSOLUTE NEUTROPHILS 16:00:00 6473 cells/ uL [id number] N Preliminary ABSOLUTE LYMPHOCYTES 16:00:00 1523 cells/ [...] N Preliminary REPORT COMMENT:FASTING :YESTest performed at [facility] [address],[place] [address]Usdgv tor: SIDDHARTHA FISHER MD Panel Description: OBSTETRIC PANEL Preliminary RUBELLA ANTIBODY (IGG) 00:00:00 7.75 index N Preliminary Index Interpretation ----- <0.90 Not consistent with Immunity 0.90-0.99 Equivocal > or = 1.00 Consistent with Immunity The presence of rubella IgG antibody suggests immunization or past or current infection withrubella virus.Test performed at [facility] [place] [address],[place] [address]Sorkl tor: SIDDHARTHA FISHER MD Panel Description: HIV [...] purpose. For additional information please refer [email or web address] [email or web address]/faq/F AQ106(This link is being provided for informational/e ducational purposes only.) The performance of this assay has not been clinicallyvalid ated in patients less than 2 years old. REPORT COMMENT:FASTING :YESTest performed at [facility] [address],[place] [address]Nlgzp tor: SIDDHARTHA FISHER MD Panel Description: OBSTETRIC PANEL Preliminary HEPATITIS B SURFACE ANTIGEN 00:00:00 NON-REACTIV E NON-REACTI VE N Preliminary Test performed at [facility] [address],[place] [address]Wffhi tor: SIDDHARTHA FISHER MD Panel Description: OBSTETRIC [...] POSITIVE Preliminary REPORT COMMENT:FASTING :YESTest performed at [facility] [address],[place] [address]Sqnnn tor: SIDDHARTHA FISHER MD Panel Description: OBSTETRIC PANEL Final RPR (DX) W/REFL TITER AND CONFIRMATOR Y TESTING 13:00:00 NON-REACTIV E NON-REACTI VE N Final REPORT COMMENT:FASTING :YESTest performed at [facility] [address],[place] [address]Zxbpt tor: SIDDHARTHA FISHER MD Panel Description: SICKLE CE LL SCREEN W/REFL HEMOGLOBINOPATHY EVAL Final SICKLE CELL SCREEN 11:00:00 NEGATIVE NEGATIVE N Final Hemoglobin solubility testing alone is insufficientfor detecting or confirming the presence of sicklinghemoglo bins in some situations. Additional testingmay be required for diagnosis of hemoglobinopath ies.For more information on this test go to:http://educa tion.uParts/faq/ XEC62s5 REPORT COMMENT:FASTING :YESTest performed at [facility] [address],[place] [address]Lfywj tor: SIDDHARTHA FISHER MD Panel Description: CYSTIC [...] Detection Before After Negative Rate Test ResultAshkenazi Jehovah'S Witness 94% 1 in 24 1 in 400Non- 88% 1 in 25 1 in 208CaucasianHis panic-Japanese 72% 1 in 46 1 in 164African-Amer ican 65% 1 in 65 1 in 186Asian-Americ an 49% 1 in 94 1 in 184Other insufficient data available MUTATIONS/P OLYMORPHISM S 10:00:00 see note Final G85E (c.254G>A ) R334W (c.1000C>T)394d elTT (c.262delTT) R347H (c.1040G>A)R117 H (c.350G>A) R347P (c.1040G>C)621+ 1 G>T (c.489+1G>T) A455E (c.1364C>A)711+ 1 G>T (c.579+1G>T) 1507del (c.1519delATC)1 078delT (c.948delT) H832waj (c.1521delCTT)V 520F (c.1558G>T) R553X (c.1657C>T)1717 -1 G>A (c.1585-1G>A) R560T (c.1679G>C)G542 X (c.1624G>T) 1898+1 G>A (c.1766+1G>A)S5 49N (c.1646G>A) 2183AA>G (c.2051delAAins G)S549R (c.1645A>C or c.1647T>G) 2184delA (c.2052delA)G55 1D (c.1652G>A) 2789+5 G>A (c.2657+5G>A)31 20+1 G>A (c.2988+1G>A) E6216B (c.3846G>A)R116 2X (c.3484C>T) P8378U (c.3909C>G)3659 delC (c.3528delC)384 9+10kb C>T (C.3717+53018Z> T)3876delA (c.3744delA)390 5insT (c.3773insT) This assay detects [...] Health care providers, please contact your local [facility] s' genetic counselor or call [facility]([phone]) for assistance with interpretation ofthese results. The analytical performance characteristics of thisassay have been determined by [facility] [place]. The modificationsha ve not been cleared or approved by the FDA. Thisassay has been validated pursuant to the CLIAregulations and is used for clinical purposes. For additional information, please refer tohttp://educat [email or web address]/faq/c fscreen(This link is being provided for informational/e ducational purposes only.) REPORT COMMENT:FASTING :YESTest performed at [facility] [place] [address]Oqpbd tor: RYLEY RIOS MD,PHD Panel Description: Varicella [...] VZV infection.REPOR T COMMENT:FASTING :YESTest performed at [facility] [address],[place] [address]Dhimq tor: SIDDHARTHA FISHER MD Panel Description: Hepatitis B virus surface Ab [Units/volume] in Serum or Plasma by Immunoassay Final HEPATITIS B SURFACE AB IMMUNITY, QN 00:00:00 66 mIU/mL > OR = 10 N Final PATIENT HAS IMMUNITY TO HEPATITIS B VIRUS.For additional information, please refer tohttp://educat [email or web address]/faq/F AQ105(This link is being provided for informational/e ducational purposes only).REPORT COMMENT:FASTING :YESTest performed at [facility] [address],[place] [address]Hoiph tor: SIDDHARTHA FISHER MD Panel Description: DRUG [...] interpreting these drug results, please contact a [facility] Toxicology Specialist: [phone] ( ), M-F, 8am-6pm EST.Test performed at [facility] [place] [address],[place] [address]Zzoeg tor: SIDDHARTHA FISHER MD Panel Description: Bacteria identified in Urine by Culture Final CULTURE, URINE, ROUTINE 07:00:00 SEE NOTE Final CULTURE, URINE , ROUTINE MICRO NUMBER: [id number] TEST STATUS: FINAL SPECIMEN SOURCE: URINE SPECIMEN QUALITY: ADEQUATE RESULT: Multiple organisms present, each less than 10,000 CFU/mL. These organisms, commonly found on external and internal genitalia, are considered to be colonizers. No further testing performed.Test performed at [facility] [address],[place] [address]Qqwqw tor: SIDDHARTHA FISHER MD Advance Directives Directive [...] Provider Providers Copied on Encounter VISIT - [facility], [address] [place] [address], [address], [place] tel:[phone] [facility] PNR (chief complaint) Encounter for screening, unspecifiedSp otting complicating , first kheobpjym55 weeks gestation of pregnancyEnco unter for supervision of other normal , first trimester 7 No Information VISIT - [facility], [address] [place], [address], [place] tel:[phone] [facility] spotting (chief complaint) Body mass index (BMI) 30.0-30.9, adultEncounte r for screening, unspecifiedBl eeding in early weeks gestation of 7 No Information VISIT - [facility], [address] [place], [address], [place] tel:[phone] [facility] initial (chief complaint) 8 weeks gestation of pregnancyEnco unter for supervision of other normal , first trimester 7 No Information [facility], [address] [place] [address], [address], [place] tel:[phone] [facility] Ob Ultrasound (chief complaint) Encounter for screening 7 Arin Rouse. [address] [facility], [id number] 0, [place], [address], [place]. 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 [address] [facility], [id number] [address] [place] [address], [id number], [place]. tel:[phone] OFFICE/OUTPA TIENT VISIT, [facility], [address] [place] [address], [address], [place] tel:[phone] [facility]/itc eva (chief complaint) Body mass index (BMI) 29.0-29.9, adultEncounte r for sexually transmitted disease screeningCand idal vulvovaginiti sOther specified noninflammato ry disorders of vaginaEncount er for screening for other viral diseases No Information OFFICE/OUTPA TIENT VISIT, [facility], [address] [place] [address], [address], [place] tel:[phone] [facility] Women Health Follow Up of contraception (chief complaint) Body mass index (BMI) 28.0-28.9, adultEncounte r for test, result negativeEncou nter for surveillance of contraceptive pills No Information [facility], [address] [place] [address], [address], [place] tel:[phone] [facility] Dental Encounter for dental exam and cleaning w/o abnormal findings 6 Aquiles Martinez. 500 [facility], [id number] [address] [place] [address], [id number], [place]. tel:[phone] [facility], [address] [place] [address], [address], [place] tel:[phone] [facility] Dental Dental caries on pit and fissure surfc penetrat into dentin 6 No Information OFFICE/OUTPA TIENT VISIT, [facility], [address] [place] [address], [address], [place] tel:[phone] [facility] BP check while on COCs (chief complaint) Encounter for other general counseling on contraception 6 No Information OFFICE/OUTPA TIENT VISIT, [facility], [address] [place] [address], [address], [place] tel:[phone] [facility] Adult Medicine right groin pain (chief complaint) Encounter for screening, unspecifiedRi ght groin pain 6 No Information [facility], [address] [place] [address], [address], [place] tel:[phone] [facility] Dental Encounter for dental exam and cleaning w/o abnormal findings 6 Aliyah Ravi. Ping [facility], [id number] [address] [place] [address], [id number], [place]. tel:[phone] Referring Provider: Breonna Ly, [address] [facility] [id number] [address] [place] [address], [address] . tel:[phone] OFFICE/OUTPA TIENT VISIT, [facility], [address] [place] [address], [address], [place] tel:[phone] [facility] follow up (chief complaint) Encounter for other general counseling on contraception No Information OFFICE/OUTPA TIENT VISIT, [facility], [address] [place], [address], [place] tel:[phone] [facility] Irregular menses (chief complaint)Adj ust OCPs (chief complaint) Encounter for screening, unspecifiedEn counter for test, result negativeAbnor mal uterine bleeding 6 No Information [facility], [address] [place] [address], [address], [place] tel:[phone] [facility] Dental Encounter for dental exam and cleaning w/o abnormal findings 6 Aliyah Ravi. [address], [id number] 0, [place], [place], [id number], [place]. tel:[phone] Referring Provider: Breonna Ly, [address] [id number], [place], [address] . tel:[phone] [facility], [address] [place] [address], [address], [place] tel:[phone] [facility] Dental Encounter for dental exam and cleaning w/o abnormal findings 6 Aliyah Ravi. [address], [id number] 0, [place], [place], [id number], [place]. tel:[phone] Referring Provider: Breonna Ly, [address] [id number] [facility], [place], [address] . tel:[phone] PREV VISIT, [facility], AGE 18-39 [facility], [address] [place] [address], [address], [place] tel:[phone] [facility] Adult Medicine Establish Care (chief complaint) Body mass index (BMI) 28.0-28.9, adultRoutine physical examination 6 No Information OFFICE/OUTPA TIENT VISIT, [facility], [address] [place] [address], [address], [place] tel:[phone] [facility] Adult Medicine Varicella vaccine status (chief complaint) Body mass index (BMI) 28.0-28.9, adultEncounte r for screening, unspecifiedEn counter for test, result negativeVacci ne counseling No Information [facility], [address] [place] [address], [address], [place] tel:[phone] [facility] Dental Encounter for dental exam and cleaning w/o abnormal findings 5 Aquiles Martinez. [address], [id number] 0, [place], [place], [id number], [place]. tel:[phone] Referring Provider: Juan Kwan, [address] [id number], [place], [address] . tel:[phone] OFFICE/OUTPA TIENT VISIT, [facility], [place], [address], [place] tel:[phone] [facility] Adult Medicine immunization/ titers (chief complaint) Immunization due 5 No Information OFFICE/OUTPA TIENT VISIT, [facility], [place], [address], [place] tel:[phone] [facility] office visit (chief complaint) ROUTINE SALES ADVISOR EXAMINATIONCl inical breast examContracep tive pill surveillance 4 No Information OFFICE/OUTPA TIENT VISIT, [facility], [place], [address], [place] tel:[phone] [facility] vaginal odor (chief complaint) VaginitisSTD SCREEN 4 No Information [facility], [place], [address], [place] tel:[phone] Conversion VAGINITIS AND VULVOVAGINITI S UNSPECIFIED 3 No Information [facility], [address] [place], [place], [facility], [place] tel:[phone] Conversion CANDIDIASIS VAGINALSTD SCREEN 2 No Information [...] Date Status Comments Tdap administered Source: [facility] unization Record Payers Payer name Insurance type Covered republican ID Authoriza tion(s) SlideA [id number] Sl[employer] [id number] Social History Type Description Quantity Date Captured [...] Illness PNR spotting initial Ob Ultrasound Dating SALES ADVISOR US r/o ectopic/ low er abdominal pain [...] and was advised to follow up in [facility] states the pain has resovled right [...] rather than returning to otc COCs from [facility] Adjust OCPs Pt denies medica l history [...] OCPs: triphasic levonorgesterl / ethinylestradiol (rx'd from [facility]). Denies late / missed / doubling on pills. 01/09/16: Cbc, tsh, hgA1c normal from [facility]. Establish Care Patient presents to office to establish care with a PCP. She denies any history of chronic medical conditions. She does not have any complaints today.Surgical: NoneSocial: Does not smoke, drink nor use drugs. She is and is using oral contraceptives from [facility]. She is disatisfied with the weight gain. She is considering IUD placement. Family: Father with HTN, prostate CA; mother of ectopic pregnancyPrevention: Needs updated Tdap, needs eye exam and SALES ADVISOR exam. UTD dental. Varicella vaccine status Patient presents to the office to discuss her varicella vaccine status. She came to the office in July 2015 and had titier performed. She was under the impression she was in need of a varicella vaccine. Titers show that the patient is immune. 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 She states that she has other documentation from [facility] stating she is immune to MMR. 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 No manager clinical complaints. Has been on a BCP x veral years. Rx is from [facility]. Does not know name. No problems. Light Periods. ROS neg. vaginal odor (comments) 33 yo here for vaginal odorLMP 03/21/14, just endedPt c/o vaginal odor since the end of the menses. Denies vaginal irritation, d/c, urination sx, lower abd pain, fever or chillsSA w 1 partner, denies DV. Using OCP daily from [facility] without difficulties. Denies ACHESDenies PMHx, SMHx, blood clotting disease, smoking cigarettes, or hx of SALES ADVISOR/GI cancersDenies hx of STDs in the past [...] pain or lumps. Related to Encntr for manager clinical exam (general) (routine) w/o abn findings o [...] (BMI) 28.0-28.9, adult [facility] e time each dayEncouraged condom use Reviewed [...]
--- OUTSIDE RECORDS SUMMARY | 2025-01-28 12:43 | XMS_ITS | Encounter Summary ---
Author Organization [facility] Address [address] [place] [address] Care Team Providers Care Central Services Tech Name Role Phone Pcp, No Primary Care Provider Unavailabl e Encounter Details Date Type Department Care Team (Late st Contact Info) Description 10/31/2020 Lab Requisition EM [facility] [address] [place] [id number] Dash López MD [address] [place] [address] [phone] Encounter for laboratory testing for COVID-19 virus [...] Priority Date/Time Associated Diagnosis Comments COVID-19 RT-PCR ([employer]) Routine 10/31/2020 6:58 AM EST Encounter for laboratory testing for COVID-19 virus [ICD-10-CM] documented in this encounter Results * (ABNORMAL) COVID-19 RT-PCR ([facility]) (10/31/2020 6:58 AM EST) COVID-19 RT-PCR POSITIVE SARS-COV-2( A) Not Detected 11/01/2020 10:31 AM EST [facility] Comment: ADDITIONAL INFORMATION The JEANNETTE COVID-19 RT-PCR Assay is Real-Time Reverse Crane Assembler Polymerase Chain Reaction (education professional-PCR) for the in vitro qualitative detection of three SARS-Cov-2 target sequences unique to the coronavirus disease 2019 (COVID-19). This is an Emergency Use Authorization (EUA) in vitro diagnostic (IVD) test that has been modified to include the Mass Fidelity automated liquid handler. Its analytical performance characteristics have been determined by the under cutting machine operator and verified by [facility] in a manner consistent with CLIA [...] at the following links: For Healthcare Providers: https://www.fda.gov/media/874462/download For Patients: https://www.fda.gov/media/906698/download TEST LIMITATIONS Positive results are indicative of [...] system. For further details refer to the Adim[employer] TaqPath COVID-19 Combo Kit EUA submission (https://www.IPP of [place].gov/media/490356/download). ----- Test performed by [facility] for Genomic Medicine, [address] [place] [address] CLIA# [id number] ?[id number] ? Demario Landeros M.D., Ph.D., [facility], Clinical Dolly Pusher Microbiology Nasopharyngeal swab / Unknown 10/31/2020 6:58 AM EST 10/31/2020 6:58 AM EST Narrative [facility] - 11/01/2020 10:31 AM EST Performed at [facility], [address], [place], [place] Lic [address], CLIA [id number] Dash López MD MICROBIOLOGY - GENER AL ORDERABLES [address] [address] documented in this encounter Visit Diagnoses Diagnosis Encounter for laboratory testing for COVID-19 virus documented in this encounter Care Teams Central Services Tech Relationship Specialty Start Date End Date Pcp, No PCP - General General Medicine 08/02/19 documented as of this encounter
--- OUTSIDE RECORDS SUMMARY | 2025-01-28 12:43 | XMS_ITS | Clinical Summary ---
Author Organization [facility] Address [address] [place] [address] Care Team Providers Care Manager Laundry Name Role Phone Pcp, No Primary Care [...] age to complete this topic Care Teams Manager Laundry Relationship Specialty Start Date End Date Pcp, No PCP - General General Medicine 08/02/19
== END 2025-01-28 13:57 | disposition home or self-care (01) ==
LOC: HO.HMCC 10:57
PROVIDERS: PCP Internal Medicine; Visit Provider Internal Medicine
DX: F41.9 Anxiety disorder, unspecified (principal)

== ENCOUNTER → 2025-01-28 10:56 | Outpatient (BNVA) | payer OTHER, SELFPAY | PROVIDERS: PCP Internal Medicine; Visit Provider Internal Medicine | DX: F41.9 Anxiety disorder, unspecified (principal); F43.9 Reaction to severe stress, unspecified; Z71.89 Other specified counseling | CPT/HCPCS: 96127; 99212 ==

== ENCOUNTER 2025-05-02 11:38 | Outpatient (AMB) | payer OTHER, SELFPAY ==
--- OUTSIDE RECORDS SUMMARY | 2017-08-20 07:15 | XMS_ITS | Continuity of Care Document ---
Author Organization [facility] vices Address [address] [place] [address] Phone Care Team Providers Care Cyber Incident Responder Name Role Phone Unavailable Unavailable Unavailable Allergies, [...] Surface, Poste rior [facility] OFF[facility]/OUTPATIENT VISIT, EST OFFICE/OUTPATIENT VISIT, EST Resin-Based Composite-One Surface, Poste rior Treatment Plan In Process [facility] OFFICE/OUTPATIENT VISIT, EST HEMOGLOBIN URINE TEST, BY VISUAL COLOR CO MPARISON OFFICE/OUTPATIENT VISIT, EST Resin-Based Composite-One Surface, Poste rior Treatment Plan In Process [facility] Comprehensive Oral Evaluation-New Or Est ablished P [...] Preliminary ABSOLUTE NEUTROPHILS 16:00:00 6473 cells/ uL [id number] N Preliminary ABSOLUTE LYMPHOCYTES 16:00:00 1523 cells/ [...] N Preliminary REPORT COMMENT:FASTING :YESTest performed at [facility] [address],[place] [address]Plxmo tor: SIDDHARTHA FISHER MD Panel Description: OBSTETRIC PANEL Preliminary RUBELLA ANTIBODY (IGG) 00:00:00 7.75 index N Preliminary Index Interpretation ----- <0.90 Not consistent with Immunity 0.90-0.99 Equivocal > or = 1.00 Consistent with Immunity The presence of rubella IgG antibody suggests immunization or past or current infection withrubella virus.Test performed at [facility] [place] [address],[place] [address]Vshqu tor: SIDDHARTHA FISHER MD Panel Description: HIV [...] purpose. For additional information please refer tohttp://educat [email or web address]/faq/F AQ106(This link is being provided for informational/e ducational purposes only.) The performance of this assay has not been clinicallyvalid ated in patients less than 2 years old. REPORT COMMENT:FASTING :YESTest performed at [facility] [address],[place] [address]Pbxrc tor: SIDDHARTHA FISHER MD Panel Description: OBSTETRIC PANEL Preliminary HEPATITIS B SURFACE ANTIGEN 00:00:00 NON-REACTIV E NON-REACTI VE N Preliminary Test performed at [facility] [address],[place] [address]Icsyj tor: SIDDHARTHA FISHER MD Panel Description: OBSTETRIC [...] POSITIVE Preliminary REPORT COMMENT:FASTING :YESTest performed at [facility] [address],[place] [address]Qczlj tor: SIDDHARTHA FISHER MD Panel Description: OBSTETRIC PANEL Final RPR (DX) W/REFL TITER AND CONFIRMATOR Y TESTING 13:00:00 NON-REACTIV E NON-REACTI VE N Final REPORT COMMENT:FASTING :YESTest performed at [facility] [address],[place] [address]Orsyb tor: SIDDHARTHA FISHER MD Panel Description: SICKLE CE LL SCREEN W/REFL HEMOGLOBINOPATHY EVAL Final SICKLE CELL SCREEN 11:00:00 NEGATIVE NEGATIVE N Final Hemoglobin solubility testing alone is insufficientfor detecting or confirming the presence of sicklinghemoglo bins in some situations. Additional testingmay be required for diagnosis of hemoglobinopath ies.For more information on this test go to:http://educa tion.Partigi/faq/ [email or web address] REPORT COMMENT:FASTING :YESTest performed at [facility] [address],[place] [address]Rbmmn tor: SIDDHARTHA FISHER MD Panel Description: CYSTIC [...] Detection Before After Negative Rate Test ResultAshkenazi Adventist 94% 1 in 24 1 in 400Non- 88% 1 in 25 1 in 208CaucasianHis panic-Zambian 72% 1 in 46 1 in 164African-Amer ican 65% 1 in 65 1 in 186Asian-Americ an 49% 1 in 94 1 in 184Other insufficient data available MUTATIONS/P OLYMORPHISM S 10:00:00 see note Final G85E (c.254G>A ) R334W (c.1000C>T)394d elTT (c.262delTT) R347H (c.1040G>A)R117 H (c.350G>A) R347P (c.1040G>C)621+ 1 G>T (c.489+1G>T) A455E (c.1364C>A)711+ 1 G>T (c.579+1G>T) 1507del (c.1519delATC)1 078delT (c.948delT) D777qyp (c.1521delCTT)V 520F (c.1558G>T) R553X (c.1657C>T)1717 -1 G>A (c.1585-1G>A) R560T (c.1679G>C)G542 X (c.1624G>T) 1898+1 G>A (c.1766+1G>A)S5 49N (c.1646G>A) 2183AA>G (c.2051delAAins G)S549R (c.1645A>C or c.1647T>G) 2184delA (c.2052delA)G55 1D (c.1652G>A) 2789+5 G>A (c.2657+5G>A)31 20+1 G>A (c.2988+1G>A) B1858G (c.3846G>A)R116 2X (c.3484C>T) K6460O (c.3909C>G)3659 delC (c.3528delC)384 9+10kb C>T (C.3717+16716T> T)3876delA (c.3744delA)390 5insT (c.3773insT) This assay detects [...] REVIEWER 10:00:00 see note Final Ifeoma Sears, Ph.D.,[facility] ctor, Molecular Genetics Health care providers, please contact your local VOZ s' genetic counselor or call [phone]) for assistance with interpretation ofthese results. The analytical performance characteristics of thisassay have been [place] The modificationsha ve not been cleared or approved by the FDA. Thisassay has been validated pursuant to the CLIAregulations and is used for clinical purposes. For additional information, please refer [email or web address] [email or web address]/c fscreen(This link is being provided for informational/e ducational purposes only.) REPORT COMMENT:FASTING :[facility]est [facility] at [facility] [place] [address]Hlkbm tor: RYLEY RIOS MD,PHD Panel Description: Varicella [...] VZV infection.REPOR T COMMENT:FASTING :YESTest performed at [facility] [address],[place] [address]Lcrpi tor: SIDDHARTHA FISHER MD Panel Description: Hepatitis B virus surface Ab [Units/volume] in Serum or Plasma by Immunoassay Final HEPATITIS B SURFACE AB IMMUNITY, QN 00:00:00 66 mIU/mL > OR = 10 N Final PATIENT HAS IMMUNITY TO HEPATITIS B VIRUS.For additional information, please refer [email or web address] [email or web address]/F AQ105(This link is being provided for informational/e ducational purposes only).REPORT COMMENT:FASTING :YESTest performed at [facility] [address],[place] [address]Zfilp tor: SIDDHARTHA FISHER MD Panel Description: DRUG [...] interpreting these drug results, please contact a [facility] Toxicology Specialist: [phone] ( ), M-F, 8am-6pm EST.Test performed at [facility] [place] [address],[place] [address]Toynq tor: SIDDHARTHA FISHER MD Panel Description: Bacteria identified in Urine by Culture Final CULTURE, URINE, ROUTINE 07:00:00 SEE NOTE Final CULTURE, URINE , ROUTINE MICRO NUMBER: [id number] TEST STATUS: FINAL SPECIMEN SOURCE: URINE SPECIMEN QUALITY: ADEQUATE RESULT: Multiple organisms present, each less than 10,000 CFU/mL. These organisms, commonly found on external and internal genitalia, are considered to be colonizers. No further testing performed.Test performed at [facility] [address],[place] [address]Qgocl tor: SIDDHARTHA FISHER MD Advance Directives Directive [...] Provider Providers Copied on Encounter VISIT - [facility], [address] [place] [address], [address], [place] tel:[phone] [facility] PNR (chief complaint) Encounter for screening, unspecifiedSp otting complicating , first fvxtkmegd73 weeks gestation of pregnancyEnco unter for supervision of other normal , first trimester 7 No Information VISIT - [facility], [address] [place], [address], [place] tel:[phone] [facility] spotting (chief complaint) Body mass index (BMI) 30.0-30.9, adultEncounte r for screening, unspecifiedBl eeding in early bdbinuuhc66 weeks gestation of 7 No Information VISIT - [facility], [address] [place], [address], [place] tel:[phone] [facility] initial (chief complaint) 8 weeks gestation of pregnancyEnco unter for supervision of other normal , first trimester 7 No Information [facility], [address] [place] [address], [address], [place] tel:[phone] [facility] Ob Ultrasound (chief complaint) Encounter for screening 7 Arin Rouse. [address] [facility], [id number] 0, [place], [address], [place]. 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 (chief complaint) Encounter for test, result positiveEncou nter for screening, unspecifiedPe lvic pain in female No Information PREV VISIT, EST, AGE 18-39 [facility], [address] [place] [address], [address], [place] tel:[phone] [facility] Annual Exam (chief complaint)CDC /ZAKI (chief complaint) Encntr for right of way manager exam (general) (routine) w/o abn findings No Information OFFICE/OUTPA TIENT VISIT, [facility], [address] [place] [address], [address], [place] tel:[phone] [facility] Vaginal odor (chief complaint) Body mass index (BMI) 27.0-27.9, adultVaginal odor No Information [facility], [address] [place] [address], [address], [place] tel:[phone] [facility] Dental Encounter for dental exam and cleaning w/o abnormal findings 7 Sundar Bonilla. [address] [facility], [id number] [address] [place] [address], [id number], [place]. tel:[phone] OFFICE/OUTPA TIENT VISIT, [facility], [address] [place] [address], [address], [place] tel:[phone] [facility] discharge/itc eva (chief complaint) Body mass index (BMI) 29.0-29.9, adultEncounte r for sexually transmitted disease screeningCand idal vulvovaginiti sOther specified noninflammato ry disorders of vaginaEncount er for screening for other viral diseases No Information OFFICE/OUTPA TIENT VISIT, [facility], [address] [place] [address], [address], [place] tel:[phone] [facility] Women Health Follow Up of contraception (chief complaint) Body mass index (BMI) 28.0-28.9, adultEncounte r for test, result negativeEncou nter for surveillance of contraceptive pills No Information [facility], [address] [place] [address], [address], [place] tel:[phone] [facility] Dental Encounter for dental exam and cleaning w/o abnormal findings 6 Aquiles Martinez. [address] [facility], [id number] [address] [place] [address], [id number], [place]. tel:[phone] [facility], [address] [place] [address], [address], [place] tel:[phone] [facility] Dental Dental caries on pit and fissure surfc penetrat into dentin 6 No Information OFFICE/OUTPA TIENT VISIT, [facility], [address] [place] [address], [address], [place] tel:[phone] [facility] BP check while on COCs (chief complaint) Encounter for other general counseling on contraception 6 No Information OFFICE/OUTPA TIENT VISIT, [facility], [address] [place] [address], [address], [place] tel:[phone] [facility] Adult Medicine right groin pain (chief complaint) Encounter for screening, unspecifiedRi ght groin pain 6 No Information [facility], [address] [place] [address], [address], [place] tel:[phone] [facility] Dental Encounter for dental exam and cleaning w/o abnormal findings 6 Aliyah Ravi. P[address] [facility], [id number] [address] [place] [address], [id number], [place]. tel:[phone] Referring Provider: Breonna Ly, [address] [facility] [id number] [address] [place] [address], [address] . tel:[phone] OFFICE/OUTPA TIENT VISIT, [facility], [address] [place] [address], [address], [place] tel:[phone] [facility] follow up (chief complaint) Encounter for other general counseling on contraception No Information OFFICE/OUTPA TIENT VISIT, [facility], [address] [place], [address], [place] tel:[phone] [facility] Irregular menses (chief complaint)Adj ust OCPs (chief complaint) Encounter for screening, unspecifiedEn counter for test, result negativeAbnor mal uterine bleeding 6 No Information [facility], [address] [place] [address], [address], [place] tel:[phone] [facility] Dental Encounter for dental exam and cleaning w/o abnormal findings 6 Aliyah Ravi. [address], [id number] 0, [place], [place], [id number], [place]. tel:[phone] Referring Provider: Breonna Ly, [address] [id number] 00, [place], [address] . tel:[phone] [facility], [address] [place] [address], [address], [place] tel:[phone] [facility] Dental Encounter for dental exam and cleaning w/o abnormal findings 6 Aliyah Ravi. [address], [id number] 0, [place], [place], [id number], [place]. tel:[phone] Referring Provider: Breonna Ly, [address] [id number] [facility], [place], [address] . tel:[phone] PREV VISIT, [facility], AGE 18-39 [facility], [address] [place] [address], [address], [place] tel:[phone] [facility] Adult Medicine Establish Care (chief complaint) Body mass index (BMI) 28.0-28.9, adultRoutine physical examination 6 No Information OFFICE/OUTPA TIENT VISIT, [facility], [address] [place] [address], [address], [place] tel:[phone] [facility] Adult Medicine Varicella vaccine status (chief complaint) Body mass index (BMI) 28.0-28.9, adultEncounte r for screening, unspecifiedEn counter for test, result negativeVacci ne counseling No Information [facility], [address] [place] [address], [address], [place] tel:[phone] [facility] Dental Encounter for dental exam and cleaning w/o abnormal findings 5 Aquiles Martinez. [address], [id number] 0, [place], [place], [id number], [place]. tel:[phone] Referring Provider: Juan Kwan, [address] [id number] 00, [place], [address] . tel:[phone] OFFICE/OUTPA TIENT VISIT, [facility], [place], [address], [place] tel:[phone] [facility] Adult Medicine immunization/ titers (chief complaint) Immunization due 5 No Information OFFICE/OUTPA TIENT VISIT, [facility], [place], [address], [place] tel:[phone] [facility] Health [facility] office visit (chief complaint) ROUTINE PROJECT MANAGEMENT CONSULTANT EXAMINATIONCl inical breast examContracep tive pill surveillance 4 No Information OFFICE/OUTPA TIENT VISIT, [facility], [place], [address], [place] tel:[phone] [facility] vaginal odor (chief complaint) VaginitisSTD SCREEN 4 No Information [facility], [place], [address], [place] tel:[phone] Conversion VAGINITIS AND VULVOVAGINITI S UNSPECIFIED 3 No Information [facility], [address] [place], [facility], [place] tel:[phone] Conversion CANDIDIASIS VAGINALSTD SCREEN 2 No Information [...] Date Status Comments Tdap administered Source: [facility] unization Record Payers Payer name Insurance type Covered alliance party ID Authoriza tion(s) SlideA [id number] [employer] [id number] Social History Type Description Quantity Date Captured [...] 06/07/17 currently 4.4 wks with tamiko 03/14/18. 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 : [...] use tobacco. She does not drink alcohol. CDC/ZAKI Vaginal odor Her symptoms beg an 2 [...] and was advised to follow up in [facility] states the pain has resovled [...] rather than returning to otc COCs from [facility] Irregular menses Last menstrual period was on [...] OCPs: triphasic levonorgesterl / ethinylestradiol (rx'd from [facility]). Denies late / missed / doubling on pills. 01/09/16: Cbc, tsh, hgA1c normal from [facility]. Adjust OCPs Pt denies medica l history of mal-absorptive bariatric procedures, liver disease, migraines, DVT or thrombotic diseases, CVD including stroke/ ischemia, uncontrolled HTN, smoking & >35 yo or breast cancer Establish Care Patient presents to office to establish care with a PCP. She denies any history of chronic medical conditions. She does not have any complaints today.Surgical: NoneSocial: Does not smoke, drink nor use drugs. She is and is using oral contraceptives from [facility]. She is disatisfied with the weight gain. She is considering IUD placement. Family: Father with HTN, prostate CA; mother of ectopic pregnancyPrevention: Needs updated Tdap, needs eye exam and PROJECT MANAGEMENT CONSULTANT exam. UTD dental. Varicella vaccine status Patient presents to the office to discuss her varicella vaccine status. She came to the office in July 2015 and had titier performed. She was under the impression she was in need of a varicella vaccine. Titers show that the patient is immune. Patient will be attending [facility] for nursing. She states that she has other documentation from [facility] stating she is immune to MMR. immunization/titers needs varice lla titer [facility] office visit Pt here for right of way manager exam with [facility] program. No right of way manager complaints. Has been on a BCP x veral years. Rx is from [facility]. Does not know name. No problems. Light Periods. ROS neg. vaginal odor (comments) 33 yo here for vaginal odorLMP 03/21/14, just endedPt c/o vaginal odor since the end of the menses. Denies vaginal irritation, d/c, urination sx, lower abd pain, fever or chillsSA w 1 partner, denies DV. Using OCP daily from [facility] without difficulties. Denies ACHESDenies PMHx, SMHx, blood clotting disease, smoking cigarettes, or hx of PROJECT MANAGEMENT CONSULTANT/GI cancersDenies hx of STDs in the past [...] pain or lumps. Related to Encntr for right of way manager exam (general) (routine) w/o abn findings o [...] (BMI) 28.0-28.9, adult [facility] e time each dayEncouraged condom use Reviewed [...]
[2025-05-02 11:40] VITALS: BP 112/70; PULSE 90; RESP 20; TEMP 36.9; O2SAT 99; BMI 31.9
--- NOTE | 2025-05-02 11:40 | A.OFFPC_ITS ---
Vital Signs 05/02/25 11:40 Height 5 ft 4 in Weight 186 lb BMI 31.9 BP 112/70 Blood Pressure Location Lt brachial Position Sitting Respiration 20 Pulse 90 Pulse Source Pulse Oximeter Temp 98.4 F Temp Source Oral Pulse Oximetry (%) 99 Oxygen Delivery Method Room Air Intake Visit Reasons: Possible Referral Intake Note: Pt is here today for a follow up visit. Pt states that she has issue with snoring. Pt states that she needs referral also to Clock Repairer. Allergies No Known Allergies Allergy (Verified 05/02/25 11:49) Medication List - Last Reconciled 05/02/25 by Natasha Jim MD No Known Home Meds Tobacco use date assessed: 05/02/25 Dental Screening Dental Screen Date: 01/28/25 HPI Possible Referral HPI Details Pt presents for f/u. Pt c/o rash on feet itchy. Pt did not have in lab sleep study yet and needs to reschedule it. 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 Housing: House Alcohol intake: never Patient Tobacco Use Status: Never used Tobacco e-Cigarette/Vaping Use: Never Used service: No Current occupational status: employed Cognitive needs: No Hearing needs: No Vision needs: No Questionnaire Thrive Questionnaire Date Thrive assessed: 01/28/25 I am a: Patient What is your living situation today?: I have a steady place to live Within the past 12 months, did the food you bought not last and you didn't have the money to get more?: I choose not to answer this question Within the past 12 months, did you worry whether your food would run out before you got money to buy more?: I choose not to answer this question Do you have trouble paying for medicines?: No Do you have trouble getting transportation to medical appointments?: No Do you have trouble paying your heating and electricity bill?: No Do you have trouble taking care of your child, family member or friend?: No Do you have trouble with day-to-day activities such as bathing, preparing meals, shopping, managing finances, etc.?: No Are you currently unemployed and looking for a job?: No Are you interested in more education?: Yes Please select the resources that you would like help with: None Currently or been in a relationship where the following occur: I choose not to answer THRIVE Score: 0 ELDA-7 AMB Questionnaire ELDA-7 Date ELDA - 7 assessed: 01/28/25 Source: Developed by Drs. Kj Hoang, Geraldine Kwan, Rai esparza nd colleagues, with an educational venkat from [employer]. Review of Systems Const All systems reviewed & are unremarkable except as noted in HPI and below ENT Reports no additional complaints Card Reports no additional complaints Resp Reports no additional complaints GI Reports no additional complaints Reports no additional complaints Physical exam (Primary Care) Vital Signs: Last Vital Signs Temp 98.4 F 05/02/25 11:40 Pulse 90 05/02/25 11:40 Resp 20 05/02/25 11:40 BP 112/70 05/02/25 11:40 Pulse Ox 99 05/02/25 11:40 Oxygen Delivery Method Room Air 05/02/25 11:40 BMI result Body Mass Index 31.9 Tobacco/Smoking Status: Tobacco use Status Tobacco use date assessed 05/02/25 05/02/25 11:41 Patient Tobacco Use Status Never used Tobacco 05/02/25 11:41 e-Cigarette/Vaping Use Never Used 05/02/25 11:41 Thrive Assessment: Date of Thrive Assessment Date Thrive assessed 01/28/25 05/02/25 11:41 Currently or been in a relationship where the following occur: I choose not to answer Const General: no acute distress HENMT Head: Yes normal to inspection Throat: Yes posterior oropharynx normal Eyes General: appearance normal, both eyes and all related structures Neck Neck: Yes supple Resp Effort & Inspection: normal respiratory effort Auscultation: clear to auscultation bilaterally Cardio Rhythm: regular rhythm Heart sounds: S1 normal heart sound present and S2 normal heart sound present Skin Other: Scaly erythematous rash on both feet Coding Level of Care Code Est Pt Level 4 (75038) Diagnoses Sleep apnea G47.30 Environmental allergies Z91.09 Dysplastic nevi D23.9 Tinea cruris B35.6 Assessment & Plan Assessment & Plan (1) Sleep apnea: Code(s): G47.30 - Sleep apnea, unspecified Category: Medical Plan: schedule in lab sleep study (2) Environmental allergies: Comment: Advised patient to start taking allergy pill daily. Code(s): Z91.09 - Other allergy status, other than to drugs and biological substances Category: Medical Plan: pt will be referred to police chief deputy (3) Dysplastic nevi: Code(s): D23.9 - Other benign neoplasm of skin, unspecified Category: Medical Plan: refer to dermatology (4) Tinea cruris: Code(s): B35.6 - Tinea cruris Category: Medical Plan: Ketoconazole cream as prescribed , local skin care discussed with the pt Orders: Orders RT PSG in-lab sleep study Today G47.30 - Sleep apnea, unspecified Referrals 2 Dermatology Referral D23.9 - Other benign neoplasm of skin, unspecified Medications: New ketoconazole 2% 1 appl topical DAILY 60 grams 1RF
--- OUTSIDE RECORDS SUMMARY | 2025-05-02 12:30 | XMS_ITS | Encounter Summary ---
Author Organization [facility] Address [address] [place] [id number] Care Team Providers Care Vac Press Operator Name Role Phone Pcp, No Primary Care Provider Unavailabl e Encounter Details Date Type Department Care Team (Late st Contact Info) Description 10/31/2020 Lab Requisition [facility] [address] [place] [phone] Dash López MD [address] [place] [phone] Encounter for laboratory testing for COVID-19 virus Social History Tobacco Use Types Packs/Day Years Used Date Smoking Tobacco: Never Smokeless Tobacco: Never Alcohol Use Standard Drinks/Week Comments Not Currently 0 (1 standard drink = 0.6 oz pur e alcohol) Comments Unknown Sex and Gender Information Value Date Recorded Sex Assigned at Not on file Legal Sex Female 9:04 AM EDT Gender Identity Not on file Sexual Orientation Not on file documented as of this encounter Plan of Treatment Not on file documented as of this encounter Procedures Procedure Name Priority Date/Time Associated Diagnosis Comments COVID-19 RT-PCR ([facility]) Routine 10/31/2020 6:58 AM EST Encounter for laboratory testing for COVID-19 virus [ICD-10-CM] documented in this encounter Results * (ABNORMAL) COVID-19 RT-PCR ([facility]) (10/31/2020 6:58 AM EST) COVID-19 RT-PCR POSITIVE SARS-COV-2( A) Not Detected 11/01/2020 10:31 AM EST [facility] Comment: ADDITIONAL INFORMATION The Globial COVID-19 RT-PCR Assay is Real-Time Reverse Wood Mill Supervisor Polymerase Chain Reaction (college athlete-PCR) for the in vitro qualitative detection of three SARS-Cov-2 target sequences unique to the coronavirus disease 2019 (COVID-19). This is an Emergency Use Authorization (EUA) in vitro diagnostic (IVD) test that has been modified to include the LYYN automated liquid handler. Its analytical performance characteristics have been determined by the certified pesticide applicator and verified by [facility] in a manner consistent with CLIA requirements. [...] at the following links: For Healthcare Providers: https://www.fda.gov/media/961008/download For Patients: https://www.fda.gov/media/103271/download TEST LIMITATIONS Positive results are indicative of [...] system. For further details refer to the [employer] TaqPath COVID-19 Combo Kit EUA submission (https://www.Vant[employer].gov/media/189180/download). ----- Test performed by [facility], [address] [place] [address] CLIA# [id number] Demario Landeros M.D., Ph.D., [facility], Clinical Chemicals Fermentation Operator Microbiology Nasopharyngeal swab / Unknown 10/31/2020 6:58 AM EST 10/31/2020 6:58 AM EST Narrative [facility] - 11/01/2020 10:31 AM EST Performed at [facility], [address] [place] [address], [place] [facility] [address], CLIA [id number] us Dash López MD MICROBIOLOGY - GENERAL ORDERAB LES Final Result [address] [address] documented in this encounter Visit Diagnoses Diagnosis Encounter for laboratory testing for COVID-19 virus documented in this encounter Care Teams Vac Press Operator Relationship Specialty Start Date End Date Pcp, No PCP - General General Medicine 08/02/19 documented as of this encounter
--- OUTSIDE RECORDS SUMMARY | 2025-05-02 12:30 | XMS_ITS | Clinical Summary ---
Author Organization [address] [place] [address] [place] [phone] Phone Care Team Providers Care Reimbursement Counselor Name Role Phone Unavailable Primary Care Provider [...] 2023-2 5 season) 2024 Influenza Vaccine (#1) 2025 DTaP,Tdap,and Td Vaccines (2 - Td or [...] age to complete this topic Meningococcal B Vaccine Aged Out No l onger eligible based on patient's age to complete [...] on patient's age to complete this topic [place] [address] [place] [address]
== END 2025-05-02 12:48 | disposition home or self-care (01) ==
PROVIDERS: PCP Internal Medicine; Visit Provider Internal Medicine
DX: G47.30 Sleep apnea, unspecified (principal); Z91.09 Other allergy status, other than to drugs and biological substances; D23.9 Other benign neoplasm of skin, unspecified; B35.6 Tinea cruris

== ENCOUNTER → 2025-05-02 11:38 | Outpatient (BNVA) | payer OTHER, SELFPAY | PROVIDERS: PCP Internal Medicine; Visit Provider Internal Medicine | DX: G47.30 Sleep apnea, unspecified (principal); Z91.09 Other allergy status, other than to drugs and biological substances; D23.9 Other benign neoplasm of skin, unspecified; B35.6 Tinea cruris | CPT/HCPCS: 99212 ==

== ENCOUNTER → 2025-08-14 20:30 | Outpatient (REF) | payer OTHER, SELFPAY ==
--- OUTSIDE RECORDS SUMMARY | 2017-08-20 07:15 | XMS_ITS | Continuity of Care Document ---
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 Role Phone Unavailable Unavailable Unavailable Allergies, Adverse Reactions, Alerts Substance Reaction Status Criticality No Known Allergies Active No Inform ation Medications Medication Instructions Dosage Effective Dates (start - stop) Status Comments PrePlus 27 mg iron-1 mg tablet take 1 tablet by oral route every day - Active metronidazole 500 mg tablet take 1 tablet by oral route 2 times every day for 7 days - Active Procedures Procedure Date URINALYSIS NONAUTO W/O SCOPE OB < 14 WKS 0 Days, SINGLE FETUS Or 1 st Gestation GLOBAL VISIT VISIT - SP URINALYSIS NONAUTO W/O SCOPE VISIT - SP VISIT - SP OB - TRANSVAGINAL US URINE TEST, BY VISUAL COLOR CO MPARISON Non-OB - TRANSVAGINAL OFFICE/OUTPATIENT VISIT, EST PREV VISIT, EST, AGE 18-39 CYTOPATH C/V THIN LAYER OFFICE/OUTPATIENT VISIT, EST Prophylaxis-Adult Oral Hygiene Instructions PH- Body Fluid Acidity Wet Prep OFFICE/OUTPATIENT VISIT, EST HIV-1/HIV-2, SINGLE ASSAY URINE TEST, BY VISUAL COLOR CO MPARISON OFFICE/OUTPATIENT VISIT, EST Prophylaxis-Adult Oral Hygiene Instructions Bitewings-Four Films Intraoral-Periapical First Film 016 Intraoral-Periapical Each Additional Jonny m Resin-Based Composite-One Surface, Poste rior Treatment Plans [facility]/OUTPATIENT VISIT, EST OFFICE/OUTPATIENT VISIT, EST Resin-Based Composite-One Surface, Poste rior Treatment Plan In Process [facility] OFFICE/OUTPATIENT VISIT, EST HEMOGLOBIN URINE TEST, BY VISUAL COLOR CO MPARISON OFFICE/OUTPATIENT VISIT, EST Resin-Based Composite-One Surface, Poste rior Treatment Plan In Process [facility] Comprehensive Oral Evaluation-New Or Est ablished P Treatment Plan Initiated IMMUNIZATION ADMIN TDAP VACCINE >7 IM PREV VISIT, EST, AGE 18-39 URINALYSIS NONAUTO W/O SCOPE URINE TEST, BY VISUAL COLOR CO MPARISON OFFICE/OUTPATIENT VISIT, EST Prophylaxis-Adult Oral Hygiene Instructions Bitewings-Four Films Intraoral-Periapical First Film 015 Intraoral-Periapical Each Additional Jonny m OFFICE/OUTPATIENT VISIT, EST OFFICE/OUTPATIENT VISIT, EST PH- Body Fluid Acidity OFFICE/OUTPATIENT VISIT, EST Chlamydia/Ghonorrhea State Test Administ ration Fee Wet Prep VAGINAL CHIDI Results Test Name Date and Time Measure Units Reference Range Abnormal Flag Status Comments Panel Description: OBSTETRIC PANEL Preliminary WHITE BLOOD CELL COUNT 16:00:00 8.7 Thousa nd/uL 3.8-10.8 N Preliminary RED BLOOD CELL COUNT 16:00:00 4.15 Millio n/uL 3.80-5.10 N Preliminary HEMOGLOBIN 16:00:00 12.9 g/dL 11.7-15.5 N Preliminary HEMATOCRIT 16:00:00 38.7 % 35.0-45.0 N Preliminary MCV 16:00:00 93.4 fL 80.0-100.0 N Preliminary MCH 16:00:00 31.1 pg 27.0-33.0 N Preliminary MCHC 16:00:00 33.3 g/dL 32.0-36.0 N Preliminary RDW 16:00:00 13.3 % 11.0-15.0 N Preliminary PLATELET COUNT 16:00:00 304 Thous[place] nd/uL 140-400 N Preliminary MPV 16:00:00 8.9 fL 7.5-12.5 N Preliminary ABSOLUTE NEUTROPHILS 16:00:00 6473 cells/ uL 3722-3927 N Preliminary ABSOLUTE LYMPHOCYTES 16:00:00 1523 cells/ uL 850-3900 N Preliminary ABSOLUTE MONOCYTES 16:00:00 496 cells/ uL 200-950 N Preliminary ABSOLUTE EOSINOPHILS 16:00:00 165 cells/ uL 15-500 N Preliminary ABSOLUTE BASOPHILS 16:00:00 44 cells/ uL 0-200 N Preliminary NEUTROPHILS 16:00:00 74.4 % N Preliminary LYMPHOCYTES 16:00:00 17.5 % N Preliminary MONOCYTES 16:00:00 5.7 % N Preliminary EOSINOPHILS 16:00:00 1.9 % N Preliminary BASOPHILS 16:00:00 0.5 % N Preliminary REPORT COMMENT:FASTING :YESTest performed at [facility] [address],[place] [address]Gwrei tor: SIDDHARTHA FISHER MD Panel Description: OBSTETRIC PANEL Preliminary RUBELLA ANTIBODY (IGG) 00:00:00 7.75 index N Preliminary Index Interpretation ----- <0.90 Not consistent with Immunity 0.90-0.99 Equivocal > or = 1.00 Consistent with Immunity The presence of rubella IgG antibody suggests immunization or past or current infection withrubella virus.Test performed at [facility] [place] [address],[place] [address]Zhmra tor: SIDDHARTHA FISHER MD Panel Description: HIV 1/2 A NTIGEN/ANTIBODY,FOURTH GENERATION W/RFL Final HIV AG/AB, 4TH GEN 00:00:00 NON-REACTIV E NON-REACTI VE N Final HIV-1 antigen and HIV-1/HIV-2 antibodies were notdetected. There is no laboratory evidence of HIVinfection. PLEASE NOTE: This information has been disclosed toyou from records whose confidentiality may beprotected by state law. If your state requires suchprotection, then the state law prohibits you frommaking any further disclosure of the informationwith out the specific written consent of the personto whom it pertains, or as otherwise permitted by law.A general authorization for the release of medical orother information is NOT sufficient for this purpose. For additional information please refer [email or web address] [email or web address]/faq/F AQ106(This link is being provided for informational/e ducational purposes only.) The performance of this assay has not been clinicallyvalid ated in patients less than 2 years old. REPORT COMMENT:FASTING :YESTest performed at [facility] [address],[place] [address]Fzrkt tor: SIDDHARTHA FISHER MD Panel Description: OBSTETRIC PANEL Preliminary HEPATITIS B SURFACE ANTIGEN 00:00:00 NON-REACTIV E NON-REACTI VE N Preliminary Test performed at [facility] [address],[place] [address]Ftqty tor: SIDDHARTHA FISHER MD Panel Description: OBSTETRIC PANEL Preliminary ANTIBODY SCREEN, RBC W/REFL ID, TITER AND AG 09:00:00 NO ANTIBODIES DETECTED N Preliminary Reference range No antibodies detected This assay is a screening test for the detection of red blood cell antibodies. The test is not to be used for pretransfusion screening or for the medical management of an alloimmunized . ABO GROUP 09:00:00 O Preliminary RH TYPE 09:00:00 RH(D) POSITIVE Preliminary REPORT COMMENT:FASTING :YESTest performed at [facility] [address],[place] [address]Bpsuk tor: SIDDHARTHA FIHSER MD Panel Description: OBSTETRIC PANEL Final RPR (DX) W/REFL TITER AND CONFIRMATOR Y TESTING 13:00:00 NON-REACTIV E NON-REACTI VE N Final REPORT COMMENT:FASTING :YESTest performed at [facility] [address],[place] [address]Robej tor: SIDDHARTHA FISHER MD Panel Description: SICKLE CE LL SCREEN W/REFL HEMOGLOBINOPATHY EVAL Final SICKLE CELL SCREEN 11:00:00 NEGATIVE NEGATIVE N Final Hemoglobin solubility testing alone is insufficientfor detecting or confirming the presence of sicklinghemoglo bins in some situations. Additional testingmay be required for diagnosis of hemoglobinopath ies.For more information on this test go to:[email or web address] [email or web address]/faq/ [email or web address] REPORT COMMENT:FASTING :YESTest performed at [facility] [address],[place] [address]Vqnjr tor: SIDDHARTHA FISHER MD Panel Description: CYSTIC FIBROSIS SCREEN Final ETHNICITY: 10:00:00 see note Final CF RESULT 10:00:00 see note Final NEGATIVE; NONE OF THE MUTATIONS LISTEDBELOW WERE DETECTED INTERPRETAT ION 10:00:00 see note Final This result does not rule out the presence of amutation or a diagnosis of cystic fibrosis disease(CF). The risk for mutations that cause CF otherthan the ones tested depends greatly on familyhistory, clinical presentation, and ethnicity. Chance of Having a CF MutationEthnic Group Detection Before After Negative Rate Test ResultAshkenazi Yazidi 94% 1 in 24 1 in 400Non- 88% 1 in 25 1 in 208CaucasianHis panic-Costa Rican 72% 1 in 46 1 in 164African-Amer ican 65% 1 in 65 1 in 186Asian-Americ an 49% 1 in 94 1 in 184Other insufficient data available MUTATIONS/P OLYMORPHISM S 10:00:00 see note Final G85E (c.254G>A ) R334W (c.1000C>T)394d elTT (c.262delTT) R347H (c.1040G>A)R117 H (c.350G>A) R347P (c.1040G>C)621+ 1 G>T (c.489+1G>T) A455E (c.1364C>A)711+ 1 G>T (c.579+1G>T) 1507del (c.1519delATC)1 078delT (c.948delT) B389jdq (c.1521delCTT)V 520F (c.1558G>T) R553X (c.1657C>T)1717 -1 G>A (c.1585-1G>A) R560T (c.1679G>C)G542 X (c.1624G>T) 1898+1 G>A (c.1766+1G>A)S5 49N (c.1646G>A) 2183AA>G (c.2051delAAins G)S549R (c.1645A>C or c.1647T>G) 2184delA (c.2052delA)G55 1D (c.1652G>A) 2789+5 G>A (c.2657+5G>A)31 20+1 G>A (c.2988+1G>A) L0778T (c.3846G>A)R116 2X (c.3484C>T) W6931I (c.3909C>G)3659 delC (c.3528delC)384 9+10kb C>T (C.3717+46231O> T)3876delA (c.3744delA)390 5insT (c.3773insT) This assay detects thirty-two mutations, including thetwenty-three core mutations recommended by the AmericanCollege of Medical Genetics (ACMG) and the AmericanCongres s of Obstetricians and Gynecologists (ACOG) forpopulation-b ased CF carrier screening. In additionto the ACMG/ACOG panel, this assay detects nineadditional mutations. While these mutations are rarein the [place] population, the scientific and medicalliteratu re indicates that these mutations are notbenign polymorphisms. The status of the intron 9(formerly intron 8) polyT tract is reported onlywhen the R117H mutation is detected. METHOD 10:00:00 see note Final The mutations are detected by multiplex-polym erasechain reaction (PCR) amplification of specific CFgene regions, followed by nucleotide sequence analysison a massively parallel sequencing platform. Althoughrare, false positive or false negative results mayoccur. All results should be interpreted in the contextof clinical findings, relevant history, and otherlaboratory data. REVIEWER 10:00:00 see note Final Ifeoma Sears, Ph.D.,[facility] ctor, Molecular Genetics Health care providers, please contact your local Tar[facility] s' genetic counselor or call [facility]() for assistance with interpretation ofthese results. The analytical performance characteristics of thisassay have been determined [place]. The modificationsha ve not been cleared or approved by the FDA. Thisassay has been validated pursuant to the CLIAregulations and is used for clinical purposes. For additional information, please refer [email or web address] [email or web address]/faq/c fscreen(This link is being provided for informational/e ducational purposes only.) REPORT COMMENT:FASTING :YESTest performed at [facility] [place] [address]Yqlav tor: RYLEY RIOS MD,PHD Panel Description: Varicella zoster virus IgG Ab [Units/volume] in Serum by Immunoassay Final VARICELLA ZOSTER VIRUS ANTIBODY (IGG) 00:00:00 899.20 index N Final Index Interpretation --------- ------- <135.00 Negative - Antibody not detected 135.00 - 164.99 Equivocal > or = 165.00 Positive - Antibody detected A positive result indicates that the patient has antibody to VZV but does not differentiate between an active or past infection. The clinical diagnosis must be interpreted in conjunction with the clinical signs and symptoms of the patient. This assay reliably measures immunity due to previous infection but may not be sensitive enough to detect antibodies induced by vaccination. Thus, a negative result in a vaccinated individual does not necessarily indicate susceptibility to VZV infection.REPOR T COMMENT:FASTING :YESTest performed at [facility] [address],[place] [address]Xxvbi tor: SIDDHARTHA FISHER MD Panel Description: Hepatitis B virus surface Ab [Units/volume] in Serum or Plasma by Immunoassay Final HEPATITIS B SURFACE AB IMMUNITY, QN 00:00:00 66 mIU/mL > OR = 10 N Final PATIENT HAS IMMUNITY TO HEPATITIS B VIRUS.For additional information, please refer [email or web address] [email or web address]/faq/F AQ105(This link is being provided for informational/e ducational purposes only).REPORT COMMENT:FASTING :YESTest performed at [facility] [address],[place] [address]Bhlhp tor: SIDDHARTHA FISHER MD Panel Description: DRUG TOX MONITORING 9 W/CONF, URINE Final Amphetamine s 12:00:00 NEGATIVE ng/mL <500 N Final Barbiturate s 12:00:00 NEGATIVE ng/mL <300 N Final Benzodiazep jabier 12:00:00 NEGATIVE ng/mL <100 N Final Buprenorphi ne 12:00:00 NEGATIVE ng/mL <5 N Final Cocaine Metabolite 12:00:00 NEGATIVE ng/mL <150 N Final Heroin Metabolite 12:00:00 NEGATIVE ng/mL <10 N Final Marijuana Metabolite 20 12:00:00 NEGATIVE ng/mL <20 N Final MDMA/MDA 12:00:00 NEGATIVE ng/mL <500 N Final Methadone Metabolite 12:00:00 NEGATIVE ng/mL <100 N Final Opiates 12:00:00 NEGATIVE ng/mL <100 N Final Oxycodone 12:00:00 NEGATIVE ng/mL <100 N Final Phencyclidi ne 12:00:00 NEGATIVE ng/mL <25 N Final COMMENT 12:00:00 SEE NOTE Final This drug testing is for medical treatment only. Analysis was performed as non-forensic testing and these results should be used only by healthcare providers to render diagnosis or treatment, or to monitor progress of medical conditions. For assistance with interpreting these drug results, please contact a [facility] Toxicology Specialist: [phone] ( ), M-F, 8am-6pm EST.Test performed at [facility] [place] [address],[place] [address]Pgspm tor: SIDDHARTHA FISHER MD Panel Description: Bacteria identified in Urine by Culture Final CULTURE, URINE, ROUTINE 07:00:00 SEE NOTE Final CULTURE, URINE , ROUTINE MICRO NUMBER: [id number] TEST STATUS: FINAL SPECIMEN SOURCE: URINE SPECIMEN QUALITY: ADEQUATE RESULT: Multiple organisms present, each less than 10,000 CFU/mL. These organisms, commonly found on external and internal genitalia, are considered to be colonizers. No further testing performed.Test performed at [facility] [address],[place] [address]Rxsus tor: SIDDHARTHA FISHER MD Advance Directives Directive Yes / No Effective Date File Name Life Support Not Answered N/A N/A Intubation Not Answered N/A N/A Antibiotics Not Answered N/A N/A IV Fluid Support Not Answered N/A N/A Tube Feed Not Answered N/A N/A Other Directive N/A N/A WARNING:The information contained in this section is historical and is provided for information only and does not constitute a legal document or any assurance that the information is still accurate. Please verify the information with the araujo of the legal document before using it for clinical purposes. Encounters Encounter Description Practice Location Reason(s) For Visit Diagnoses Date Provider Providers Copied on Encounter VISIT - [facility], [address] [place] [address], [address], [place] tel:[phone] [facility] PNR (chief complaint) Encounter for screening, unspecifiedSp otting complicating , first duppagevu43 weeks gestation of pregnancyEnco unter for supervision of other normal , first trimester 7 No Information VISIT - [facility], [address] [place], [address], [place] tel:[phone] [facility] spotting (chief complaint) Body mass index (BMI) 30.0-30.9, adultEncounte r for screening, unspecifiedBl eeding in early ceulbgihr57 weeks gestation of 7 No Information VISIT - [facility], [address] [place], [address], [place] tel:[phone] [facility] initial (chief complaint) 8 weeks gestation of pregnancyEnco unter for supervision of other normal , first trimester 7 No Information [facility], [address] [place] [address], [address], [place] tel:[phone] [facility] Ob Ultrasound (chief complaint) Encounter for screening 7 Arin Rouse. [address] [facility], [id number], [place], [address], [place]. 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) Encounter for test, result positiveEncou nter for screening, unspecifiedPe lvic pain in female No Information PREV VISIT, EST, AGE 18-39 [facility], [address] [place] [address], [address], [place] tel:[phone] [facility] Annual Exam (chief complaint)CDC /ZAKI (chief complaint) Encntr for clinical biostatistician exam (general) (routine) w/o abn findings No Information OFFICE/OUTPA TIENT VISIT, [facility] [place], [address] [place] [address], [address], [place] tel:[phone] [facility] Vaginal odor (chief complaint) Body mass index (BMI) 27.0-27.9, adultVaginal odor No Information [facility], [address] [place] [address], [address], [place] tel:[phone] [facility] Dental Encounter for dental exam and cleaning w/o abnormal findings 7 Sundar Bonilla. [address] [facility], [id number] [address] [place] [address], [id number], [place]. tel:[phone] OFFICE/OUTPA TIENT VISIT, [facility] [place], [address] [place] [address], [address], [place] tel:[phone] [facility]/itc eva (chief complaint) Body mass index (BMI) 29.0-29.9, adultEncounte r for sexually transmitted disease screeningCand idal vulvovaginiti sOther specified noninflammato ry disorders of vaginaEncount er for screening for other viral diseases No Information OFFICE/OUTPA TIENT VISIT, [facility] [place], [address] [place] [address], [address], [place] tel:[phone] [facility] Women Health Follow Up of contraception (chief complaint) Body mass index (BMI) 28.0-28.9, adultEncounte r for test, result negativeEncou nter for surveillance of contraceptive pills No Information [facility], [address] [place] [address], [address], [place] tel:[phone] [facility] Dental Encounter for dental exam and cleaning w/o abnormal findings 6 Aquiles Martinez. [address] [facility], [id number] [address] [place] [address], [id number], [place]. tel:[phone] [facility], [address] [place] [address], [address], [place] tel:[phone] [facility] Dental Dental caries on pit and fissure surfc penetrat into dentin 6 No Information OFFICE/OUTPA TIENT VISIT, [facility], [address] [place] [address], [address], [place] tel:[phone] [facility] BP check while on COCs (chief complaint) Encounter for other general counseling on contraception 6 No Information OFFICE/OUTPA TIENT VISIT, [facility], [address] [place] [address], [address], [place] tel:[phone] [facility] Adult Medicine right groin pain (chief complaint) Encounter for screening, unspecifiedRi ght groin pain 6 No Information [facility], [address] [place] [address], [address], [place] tel:[phone] [facility] Dental Encounter for dental exam and cleaning w/o abnormal findings 6 Aliyah Ravi. Ping [facility], [id number] [address] [place] [address], [id number], [place]. tel:[phone] Referring Provider: Breonna Ly, [address] [facility] [id number] [address] [place] [address], [id number] . tel:[phone] OFFICE/OUTPA TIENT VISIT, [facility], [address] [place] [address], [address], [place] tel:[phone] [facility] follow up (chief complaint) Encounter for other general counseling on contraception No Information OFFICE/OUTPA TIENT VISIT, [facility], [address] [place], [address], [place] tel:[phone] [facility] Irregular menses (chief complaint)Adj ust OCPs (chief complaint) Encounter for screening, unspecifiedEn counter for test, result negativeAbnor mal uterine bleeding 6 No Information [facility], [address] [place] [address], [address], [place] tel:[phone] [facility] Dental Encounter for dental exam and cleaning w/o abnormal findings 6 Aliyah Ravi. [address], [id number], [place], [place], [id number], [place]. tel:[phone] Referring Provider: Breonna Ly, [address] [id number], [place], [address] . tel:[phone] [facility], [address] [place] [address], [address], [place] tel:[phone] [facility] Dental Encounter for dental exam and cleaning w/o abnormal findings 6 Aliyah Ravi. [address], [id number] 0, [place], [place], [id number], [place]. tel:[phone] Referring Provider: Breonna Ly, [address] [id number] [facility], [place], [address] . tel:[phone] PREV VISIT, [facility], AGE 18-39 [facility], [address] [place] [address], [address], [place] tel:[phone] [facility] Adult Medicine Establish Care (chief complaint) Body mass index (BMI) 28.0-28.9, adultRoutine physical examination 6 No Information OFFICE/OUTPA TIENT VISIT, [facility], [address] [place] [address], [address], [place] tel:[phone] [facility] Adult Medicine Varicella vaccine status (chief complaint) Body mass index (BMI) 28.0-28.9, adultEncounte r for screening, unspecifiedEn counter for test, result negativeVacci ne counseling No Information [facility], [address] [place] [address], [address], [place] tel:[phone] [facility] Dental Encounter for dental exam and cleaning w/o abnormal findings 5 Aquiles Martinez. [address], [id number], [place], [place], [id number], [place]. tel:[phone] Referring Provider: Juan Kwan, [address] [id number], [place], [address] . tel:[phone] OFFICE/OUTPA TIENT VISIT, [facility] [place], [place], [address], [place] tel:[phone] [facility] Adult Medicine immunization/ titers (chief complaint) Immunization due 5 No Information OFFICE/OUTPA TIENT VISIT, [facility] [place], [place], [address], [place] tel:[phone] [facility] office visit (chief complaint) ROUTINE LABORATORY CUREMAN EXAMINATIONCl inical breast examContracep tive pill surveillance 4 No Information OFFICE/OUTPA TIENT VISIT, [facility] [place], [place], [address], [place] tel:[phone] [facility] vaginal odor (chief complaint) VaginitisSTD SCREEN 4 No Information [facility], [place], [address], [place] tel:[phone] Conversion VAGINITIS AND VULVOVAGINITI S UNSPECIFIED 3 No Information [facility], [address] [place], [place], [facility], [place] tel:[phone] Conversion CANDIDIASIS VAGINALSTD SCREEN 2 No Information Family History Family Member Type Diagnosis Age At Onset Problem (finding) No family history of Ca ncer, uterine Father Problem (finding) hypertension Mother Problem (finding) ectopic (Caus e Of ) Mother Problem (finding) diabetes melli tus in first degree relative Problem (finding) No family history of Ca ncer, ovarian Problem (finding) No family history of Ca ncer, colon Problem (finding) No family history of Ca ncer, breast Immunizations Vaccine Date Status Comments Tdap administered Source: [facility] unization Record Payers Payer name Insurance type Covered democrat ID Authoriza tion(s) SlideA [id number] [employer] [id number] Social History Type Description Quantity Date Captured Comments Alcohol Use Details No Caffeine Use Details No Tobacco Use Status No Information Smoking Status No Information Sex Female Yes - Patient is cur rently Vital Signs Date / Time: Height Weight BMI Pulse Rate Blood Pressure Temperature Respiratory Rate Body Surface Area Head Circumference Head Circ. Percentile Wt./Gavin. Percentile BMI percentile Pulse Ox Inhaled Ox 10:13 AM 64.00 in 78.471 kg (173.00 lbs) 29.6 9 kg/m eter (2) 81 /min 108/74 mm[Hg] Chief Complaint And Reason For Visit From encounter dated '08/20/2017 11:15'. PNR (chief complaint) Reason For Referral Reason For Referral No Information Plan Of Treatment Date Type Action Status Goal Dietary manageme nt education, guidance, and counseling completed Goal Lifestyle education regardin g diet completed Goal Lifestyle education regardin g diet completed Goal Lifestyle education regardin g diet completed Goal Dietary manageme nt education, guidance, and counseling completed Goal Dietary manageme nt education, guidance, and counseling completed Patient Education Nutrition During Pregna ncy: After Your completed Patient Education A Healthy Lifestyle: Af ter Your Visit completed History Of Present Illness Encounter Date Complaint History Of Prese nt Illness PNR spotting initial Ob Ultrasound Dating pelvic pain Her symptoms beg an 1 week ago and are unchanged. Presently, the patient is experiencing pain described as sharp, located in the right lower abdomen/pelvis and radiating to the none. This is the first episode. The patient is premenopausal. Last menstrual period was 06/07/2017. Relevant factors include possible . Patient denies amenorrhea, antibiotic use or frequent urination. She denies any abdominal mass, bloating, chills, constipation, decreased appetite, diarrhea, dizziness, dysuria, fever, hematuria, melena, menstrual cramping, nausea, syncope, urinary frequency or vomiting. Additional information: Walk-in, missed menses, c/o intermittent pelvic pain L and R side, denies pain currently, denies VB , + preg test, based on LMP of 06/07/17 currently 4.4 wks with tamiko 03/14/18. 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 : 2. Parity: Term: 1. : 1. Livin. The patient states she uses none for control. Last LMP was 04/19/2017. Her menses is regular with normal flow with a frequency of every 28 days. Negative for dysmenorrhea and menorrhagia. Details: 5-6 days of bleeding. changing pad q 2-3x/day. Negative for: breast discharge, breast lump(s), breast pain and breast self exam. Pertinent negatives include abnormal bleeding (hematology), abnormal vaginal bleeding, anxiety, depression, history of infertility, nocturia, urinary incontinence, urinary urgency, vaginal discharge and vaginal itching. Diet trying healthy. She does not take calcium. She does not take Vitamin D. She does take multivitamins occasionally. She does not take Folic acid.The patient states her exercise level is moderate. The patient does not use tobacco. She does not drink alcohol. Vaginal odor Her symptoms beg an 2 Weeks ago. Presently the patient is experiencing vaginal odor and vaginal discharge. Color is bloody. Character is fishy. Presently the patient is not experiencing vaginal itching and vaginal irritation. The patient is premenopausal. Last menstrual period was 04/22/2017. patient denies condom use, douching, new partner or recent antibiotics. The patient has a history of bacterial vaginosis and yeast. The patient has no history of chlamydia, gonorrhea, herpes genitalis or trichomoniasis. Her symptoms are not aggravated by anything. Her symptoms are not relieved by anything. Additional information: Reports starting with some bloody discharge p her menses. SA with partner of 5 years. vaginal discharge/itching Her sy mptoms began 3 Days ago. Presently the patient is experiencing vaginal itching, vaginal irritation and vaginal discharge. Presently the patient is not experiencing vaginal odor. The patient is premenopausal. patient denies condom use, douching, new partner or recent antibiotics. The patient has a history of bacterial vaginosis and yeast. The patient has no history of chlamydia, gonorrhea, herpes genitalis or trichomoniasis. Her symptoms are not aggravated by new soap detergent. Her symptoms are relieved by Monistat -making sx worse. She denies fever, dysuria, frequent urination, genital lesions, genital rash, genital ulcers or herpes genitalis. Follow Up of contraception 36 yo female presents to office for refills of OCPs LMP: 11/02/15, lasting 4 daysReports she is happy with this form of contraception, denies side effects. Pt denies any unexplained vaginal bleedingPt denies changes in medical history : No medical history of mal-absorptive bariatric procedures, liver disease, migraines, DVT or thrombotic diseases, CVD including stroke/ ischemia, uncontrolled HTN, smoking & >35 yo or breast cancer BP check while on COCs 36 yo fem randa presents for follow up of COCsReports taking pills roughly at the same time, sometimes taking a pill 6 hours late but this is seldomShe denies having continued AUBHer BP is stable todayShe reports she is happy with this method and desires to continue with COCsPt also reports she was seen in Adult [facility] 05/15/16 for groin pain and was advised to follow up in [facility] states the pain has resovled right groin pain The symptoms be raymond 6 months ago. Aggravating factors include none. Relieving factors include nothing. Intermittent pain to the right groin for the past 6 months, possibly more. She does not have the pain currently, but reports that she had it in the waiting room. Believes to have the pain daily. Denies aggravating factors. Does not do anything for the pain because the pain does not last long. Pain is mild when she has it, with an occasional sharpness. She has been to [facility] recently but has not told them about the pain. Denies any recent trauma to the area she is having pain. Does report recent unprotected sex this weekend, however, she reports this is with the same partner she has had for 4 years, is currently on OCP's follow up Pt presents for follow up for abnormal uterine bleeding with COCsHas taken regimen of COCs as prescribed at previous visitCompleted treatment for BV on 03/03/16Bleeding stopped 02/26/16 , continues to take COCs without any side effects. Pt would like to continue with this contraception, rather than returning to otc COCs from [place] Adjust OCPs Pt denies medica l history of mal-absorptive bariatric procedures, liver disease, migraines, DVT or thrombotic diseases, CVD including stroke/ ischemia, uncontrolled HTN, smoking & >35 yo or breast cancer Irregular menses Last menstrual period was on 02/04/2016. The age of menarche onset was 11. Patient not . Associated symptoms include bleeding between menses and menstrual cramping. Pertinent negatives include acne, alopecia, back pain, bloating, breast tenderness, constipation, cyclic pelvic pain, decreased libido, difficulty concentrating, difficulty sleeping, dyspareunia, fatigue, galactorrhea, hirsutism, hot flashes, infertility, male pattern hair loss, nausea, ovulatory pain, pelvic pain, vaginal dryness, weight loss or voice changes. Additional information: LMP: 02/04/16 ; changing pads q 2 hours w/ <half way full. Minimal amts of clotting smaller than a pea. Denies pelvic pain. Denies previous hx of irregular bleeding. Currently OCPs: triphasic levonorgesterl / ethinylestradiol (rx'd from [place]). Denies late / missed / doubling on pills. 01/09/16: Cbc, tsh, hgA1c normal from Adult [facility]. Establish Care Patient presents to office to establish care with a PCP. She denies any history of chronic medical conditions. She does not have any complaints today.Surgical: NoneSocial: Does not smoke, drink nor use drugs. She is and is using oral contraceptives from [place]. She is disatisfied with the weight gain. She is considering IUD placement. Family: Father with HTN, prostate CA; mother of ectopic pregnancyPrevention: Needs updated Tdap, needs eye exam and LABORATORY CUREMAN exam. UTD dental. Varicella vaccine status Patient presents to the office to discuss her varicella vaccine status. She came to the office in July 2015 and had titier performed. She was under the impression she was in need of a varicella vaccine. Titers show that the patient is immune. 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 She states that she has other documentation from [facility] stating she is immune to MMR. immunization/titers needs varice lla titer [facility] office visit Pt here for clinical biostatistician exam with [facility] program. No clinical biostatistician complaints. Has been on a BCP x veral years. Rx is from [facility]. Does not know name. No problems. Light Periods. ROS neg. vaginal odor (comments) 33 yo here for vaginal odorLMP 03/21/14, just endedPt c/o vaginal odor since the end of the menses. Denies vaginal irritation, d/c, urination sx, lower abd pain, fever or chillsSA w 1 partner, denies DV. Using OCP daily from [facility] without difficulties. Denies ACHESDenies PMHx, SMHx, blood clotting disease, smoking cigarettes, or hx of LABORATORY CUREMAN/GI cancersDenies hx of STDs in the past vaginal odor wants state std testing Functional Status Date Functional Assessmen t Pain Score 0/10 Instructions Date Instruction Additional Infor yossi Dietary management e ducation, guidance, and counseling Related to Body mass index (BMI) 30.0-30.9, adult HIV and other routine t ests risk factors identif ied by history anticipated course of c are nutrition and weight gain counseling, special diet toxoplasmosis precau tions (cats / raw meat) sexual activity exercise indications for ultrasound influenza vaccine environmental / work hazards travel tobacco (ask, advise , assess, assist and arrange) alcohol illicit / recreational drugs use of any medicatio ns (including supplements, vitamins, herbs, OTC drugs) smoking counseling domestic violence seat belt use Intermittent pelvic pain x 1 week, R and L side, deneis currently Pelvic exam negativeCultures sentU/ S done today in office to r/o ectopic - Intermittent pelvic pain x 1 week, R and L side, denies pain currentlyU/ S done today in office to r/o ectopic --> Anteverted uterus 9.4 x 4.4 x 5.9 cm appears normal, the endometrium is thickened 13 mm, there is small cystic area seen in the fundal portion ? very early GS, both ovaries are visible and they appears normal, rt ovary 2.2 x 0.9 x 1.3 cm, lt ovary 2.7 x 2.6 x 2.9 cm, normal adnexa, no free fluid seen RTC 3 weeks for dating u/sAvoidance of drugs, alcohol, and tobacco discussedPrenatal vitamins erxd with instructionsDanger signs reviewedRTC prn The patient verbalized an understanding of all instructions. The patient verbalized an understanding of the plan. Related to Pelvic pain in female Intermittent pelvic pain x 1 week, R and L side, denies pain currentlyU/ S done today in office to r/o ectopic --> Anteverted uterus 9.4 x 4.4 x 5.9 cm appears normal, the endometrium is thickened 13 mm, there is small cystic area seen in the fundal portion ? very early GS, both ovaries are visible and they appears normal, rt ovary 2.2 x 0.9 x 1.3 cm, lt ovary 2.7 x 2.6 x 2.9 cm, normal adnexa, no free fluid seen RTC 3 weeks for dating u/sAvoidance of drugs, alcohol, and tobacco discussedPrenatal vitamins erxd with instructionsDanger signs reviewedRTC prn The patient verbalized an understanding of all instructions. The patient verbalized an understanding of the plan. Related to Encounter for test, result positive Preventative health: - Regular exercise for 30-60m on most days of the week- Healthy, well balanced nutrition, or diet. - Encourage consistent condom use if you are sexually active- Complete your pap smears as clinically recommended- Encouraged breast self-awareness including skin changes such as dimpling, thickness, rash, nipple discharge, asymmetry, pain or lumps. Related to Encntr for clinical biostatistician exam (general) (routine) w/o abn findings o Instructions for p atient Counseling: vaginal d/c- Encouraged pt to increase Vit C/ Vit D intake- Avoid scented products: douches, scented feminine hygiene products, deodorant soaps, body washes and body sprays.- Wear white cotton underwear. Avoid dark colored underwear- Discontinue w vaginal douchingo Use a condom during sexual intercourseCulture pendingno wet mount due to blood present. Will call with abnormal results Related to Vaginal odor Lifestyle education regarding di et Related to Body mass index (BMI) 27.0-27.9, adult Lifestyle education regarding di et Related to Body mass index (BMI) 29.0-29.9, adult Lifestyle education regarding di et Related to Body mass index (BMI) 28.0-28.9, adult [facility] each dayEncouraged condom use Reviewed ACHES & when to contact/ return to officeRTO 6 months Related to Encounter for other general counseling on contraception Keep your appointmen t with Women's HealthIncreased pain, fever, nausea/vomiting, unable to eat or drink return to clinic or go to the ER Related to Right groin pain RTO 3 months for BP check Relate d to Encounter for other general counseling on contraception will try to stablize bleeding by short course of increasing estrogen. Advised 3 tablets daily x 3 days, 2 tablets daily x 2 days, then 1 tablet daily.Warning signs of exessive bleeding reviewed. Related to Abnormal uterine bleeding 1. Complete blood wo rk2. Aim to be active 30 minutes per day 5 days per week3. Receive tetanus shot in office today4. Make appointments with eye doctor and GYN5. If labs are normal, follow up in one year Related to Routine physical examination Dietary management e ducation, guidance, and counseling Related to Body mass index (BMI) 28.0-28.9, adult Weight monitoring Related to Bod y mass index (BMI) 28.0-28.9, adult Weight monitoring Related to Bod y mass index (BMI) 28.0-28.9, adult Dietary management e ducation, guidance, and counseling Related to Body mass index (BMI) 28.0-28.9, adult titer ordered f/u an d proceed according. Related to Immunization due oK CONTINUE WITH bcp Related to Contraceptive pill surveillance Assessments Type Assessment Date assessment Encounter for screening, unspeci fied assessment Spotting complicating , first trimester assessment 10 weeks gestation of assessment Encounter for superv ision of other normal , first trimester Patient Care Teams Name Effective Dates (start - stop) Status Members No Information
--- OUTSIDE RECORDS SUMMARY | 2025-08-14 21:18 | XMS_ITS | Clinical Summary ---
Author Organization [facility] Address [address] [place] [address] Care Team Providers Care Census Enumerator Name Role Phone Pcp, No Primary Care Provider Unavailabl e Allergies No known active allergies Medications acetaminophen (TYLENOL) 500 MG tablet Take 1 tablet (500 mg total) by mouth 4 times daily (every 6 hours) as needed for mild pain (pain). 20 tablet 04/22/2020 Active Immunizations Immunization Administration Dates Next Due Covid-19 MRNA Vaccine [...] 72 04/22/2020 5:03 PM EDT Temperature 35.8 C (96.5 F) 04/22/2020 5:03 PM EDT Respiratory Rate 17 04/22/2020 5:03 PM EDT [...] Pap Smear (Ages 21-65) 2001 Mammogram 2020 Colonoscopy 2025 Influenza Vaccine 05/27/2025 COVID-19 Vaccine (3 - 2024-2 6 season) 2025 06/04/2021, 05/14/2021 HPV Vaccines (No Doses Required) Completed Pneumococcal Vaccine: Pediatric (0-5 Years) and At-Risk Patients (6 to 49 Years) Aged Out No longer eligible b ased on patient's age to complete this topic Insurance [facility] Care Teams Census Enumerator Relationship Specialty Start Date End Date Pcp, No PCP - General General Medicine 08/02/19
--- OUTSIDE RECORDS SUMMARY | 2025-08-14 21:18 | XMS_ITS | Encounter Summary ---
Author Organization [facility] Address [address] [place] [address] Care Team Providers Care Railcar Switchman Name Role Phone Pcp, No Primary Care Provider Unavailabl e Encounter Details Date Type Department Care Team (Late st Contact Info) Description 10/31/2020 Lab Requisition [facility] [address] [place] [phone] Dash López MD [address] [place] [phone] Encounter for laboratory testing for COVID-19 virus [...] A) Not Detected 11/01/2020 10:31 AM EST [facility] Comment: ADDITIONAL INFORMATION The Spine[employer]ra COVID-19 RT-PCR Assay is Real-Time Reverse Ply Splicer Polymerase Chain Reaction (knifeman-PCR) for the in vitro qualitative detection of three SARS-Cov-2 target sequences unique to the coronavirus disease 2019 (COVID-19). This is an Emergency Use Authorization (EUA) in vitro diagnostic (IVD) test that has been modified to include the [place] Custom Framing automated liquid handler. Its analytical performance characteristics have been determined by the social welfare research worker and verified by [facility] in a manner consistent with CLIA [...] at the following links: For Healthcare Providers: https://www.fda.gov/media/778055/download For Patients: https://www.fda.gov/media/997040/download TEST LIMITATIONS Positive results are indicative of [...] system. For further details refer to the [employer] TaqPath COVID-19 Combo Kit EUA submission (https://www.[employer].gov/media/294521/download). ----- Test performed by [facility], [address] [place] [address] CLIA# [id number] Demario Landeros M.D., Ph.D., [facility], Clinical Ware Tester Microbiology Nasopharyngeal swab / Unknown 10/31/2020 6:58 AM EST 10/31/2020 6:58 AM EST Narrative [facility] - 11/01/2020 10:31 AM EST Performed at [facility], [address] [place] [address], [place] [facility] [address], CLIA [id number] us Dash López MD MICROBIOLOGY - GENERAL ORDERAB LES Final Result [address] [id number] documented in this encounter Visit Diagnoses Diagnosis Encounter for laboratory testing for COVID-19 virus documented in this encounter Care Teams Railcar Switchman Relationship Specialty Start Date End Date Pcp, No PCP - General General Medicine 08/02/19 documented as of this encounter
== END ==
LOC: HO.SL 20:30
PROVIDERS: PCP Internal Medicine; Visit Provider Internal Medicine
DX: G47.30 Sleep apnea, unspecified (principal)
CPT/HCPCS: 95810

== ENCOUNTER → 2025-08-14 21:10 | Outpatient (BNV) | payer OTHER, SELFPAY | PROVIDERS: PCP Internal Medicine; Visit Provider Internal Medicine | DX: G47.33 Obstructive sleep apnea (adult) (pediatric) (principal); R06.83 Snoring | CPT/HCPCS: 95810 ==